=== PATIENT | female | born 1970 | race Caucasian/White ===

== ENCOUNTER → 2018-04-02 | Outpatient (REF) | payer BC | LOC: M LAB REF 17:48 | DX: E11.621 Type 2 diabetes mellitus with foot ulcer (principal) | CPT/HCPCS: 87077; 87186 ==

== ENCOUNTER 2018-06-02 17:06 | Emergency (ER) | payer BC ==
[2018-06-02 15:24] LABS: BASO % 0.3 % (0.0-1.0); EOS # 0.1 10^3/uL (0.0-0.50); EOS % 1.6 % (0.0-3.0); HEMOGLOBIN 15.2 g/dl (12.0-15.5); IMMATURE GRANULOCYTE % 0.3 % (0-3.0); LYMPH # 2.3 10^3/uL (1.5-4.5); LYMPH % 26.5 % (24.0-44.0); MEAN CORPUSCULAR HEMOGLOBIN 28.4 pg (27.0-33.0); MEAN CORPUSCULAR HGB CONC 33.8 g/dl (32.0-36.5); MEAN CORPUSCULAR VOLUME 84.1 fl (80.0-96.0); MONO # 0.5 10^3/uL (0.0-0.8); MONO % 5.7 % (0.0-5.0); NEUTROPHILS # 5.8 10^3/uL (1.8-7.7); NEUTROPHILS % 65.6 % (36.0-66.0); PLATELET COUNT, AUTOMATED 218 10^3/uL (150-450); RED BLOOD COUNT 5.35 10^6/uL (4.00-5.40); RED CELL DISTRIBUTION WIDTH 13.7 % (11.5-14.5); WHITE BLOOD COUNT 8.8 10^3/uL (4.0-10.0)
[2018-06-02] MEDS: CEFTAROLINE FOSAMIL 600 MG in D5W MINI-BAG PLUS 50 ML IV (15:29)
[2018-06-02] MEDS: NS 1,000 ML IV (15:29)
[2018-06-02 15:36] LABS: ALBUMIN 3.7 GM/DL (3.2-5.2); ALKALINE PHOSPHATASE 106 U/L (45-117); ALT/SGPT 24 U/L (12-78); ANION GAP 8 MEQ/L (8-16); AST/SGOT 8 U/L (7-37); BILIRUBIN,DIRECT < 0.1 MG/DL (0.0-0.2); BILIRUBIN,TOTAL 0.5 MG/DL (0.2-1.0); BLOOD UREA NITROGEN 12 MG/DL (7-18); CARBON DIOXIDE LEVEL 25 MEQ/L (21-32); CHLORIDE LEVEL 104 MEQ/L (98-107); CREATININE FOR GFR 0.86 MG/DL (0.55-1.30); GLOMERULAR FILTRATION RATE > 60.0 (>58); GLUCOSE, FASTING 300 MG/DL (70-100); POTASSIUM SERUM 4.1 MEQ/L (3.5-5.1); SODIUM LEVEL 137 MEQ/L (136-145); TOTAL PROTEIN 7.8 GM/DL (6.4-8.2)
[2018-06-02 15:38] LABS: LACTIC ACID SEPSIS PROTOCOL 2.5 MMOL/L (0.4-2.0)
[2018-06-02 15:44] LABS: ERYTHROCYTE SEDIMENTATION RATE 9 mm/hr (0-20)
[2018-06-02] MEDS: ACETAMINOPHEN 325 MG TAB PO (16:31)
== END 2018-06-02 17:12 | disposition home or self-care (01) ==
LOC: M ED 17:06
DX: L97.509 Non-pressure chronic ulcer of other part of unspecified foot with unspecified severity (principal); L03.115 Cellulitis of right lower limb; E11.9 Type 2 diabetes mellitus without complications; E78.5 Hyperlipidemia, unspecified; Z79.84 Long term (current) use of oral hypoglycemic drugs; Z79.899 Other long term (current) drug therapy
CPT/HCPCS: J0712

== ENCOUNTER → 2018-06-02 | Outpatient (REF) | payer BC | LOC: M LAB REF 09:34 | DX: E11.621 Type 2 diabetes mellitus with foot ulcer (principal) | CPT/HCPCS: 87186 ==

== ENCOUNTER 2018-11-27 11:43 | Inpatient (IN) | payer BC ==
[~2018-11-27] VITALS: Ht 160 cm; Wt 86.5 kg
[~2018-11-27 11:43] MED LIST: ATOR40TA75 PO; BACT800T5 PO; BASA100I SC; LISI-538 PO; METF10004 PO
[2018-11-27 12:33] LABS: BASO % 0.3 % (0.0-1.0); EOS # 0.1 10^3/uL (0.0-0.50); EOS % 1.2 % (0.0-3.0); HEMATOCRIT 44.2 % (36.0-47.0); HEMOGLOBIN 14.3 g/dl (12.0-15.5); LYMPH # 1.5 10^3/uL (1.5-4.5); LYMPH % 14.5 % (24.0-44.0); MEAN CORPUSCULAR HGB CONC 32.4 g/dl (32.0-36.5); MEAN CORPUSCULAR VOLUME 86.5 fl (80.0-96.0); MONO # 0.7 10^3/uL (0.0-0.8); MONO % 6.5 % (0.0-5.0); NEUTROPHILS # 7.7 10^3/uL (1.8-7.7); NEUTROPHILS % 77.2 % (36.0-66.0); PLATELET COUNT, AUTOMATED 388 10^3/uL (150-450); RED BLOOD COUNT 5.11 10^6/uL (4.00-5.40)
[2018-11-27 12:56] LABS: BLOOD UREA NITROGEN 7 MG/DL (7-18); C REACTIVE PROTEIN QUANTITATIV 8.56 MG/DL (0.00-0.30); CARBON DIOXIDE LEVEL 27 MEQ/L (21-32); CHLORIDE LEVEL 97 MEQ/L (98-107); CREATININE FOR GFR 0.82 MG/DL (0.55-1.30); GLOMERULAR FILTRATION RATE > 60.0 (>58); GLUCOSE, FASTING 353 MG/DL (70-100); POTASSIUM SERUM 4.5 MEQ/L (3.5-5.1); SODIUM LEVEL 130 MEQ/L (136-145)
[2018-11-27 13:00] LABS: ERYTHROCYTE SEDIMENTATION RATE 19 mm/hr (0-20)
[2018-11-27] MEDS ORDERED: AMPICILLIN SOD/SULBACTAM SOD 3 GM in D5W MINI-BAG PLUS 100 ML IV ONE (13:15)
--- NOTE | 2018-11-27 13:45 | REP ---
RIGHT FOOT SERIES: Four views of the right foot are performed and compared to a prior study of 04/02/2018. There is absence of the third metatarsal shaft and head with a small portion of the base of the third metatarsal again seen as on prior study. There is smooth periosteal reaction along the distal half of the second metatarsal with absence of the head of that metatarsal. Smooth erosive changes seen at the base of the second proximal phalanx. There is absence of the proximal half of the third proximal phalanx. There is absence of the fourth distal phalanx. Ulceration is seen in the plantar soft tissues at the level of the metatarsal phalangeal joints. Large calcaneal spurs are seen. I see no acute fracture and there is no definite radiographic signs of acute osteomyelitis with no osseous destruction or acute periosteal reaction. Electronically Signed by Peter Charles MD 11/27/2018 07:32 P
[2018-11-27] MEDS ORDERED: PERCOCET 5MG/325MG TAB PO PRN (15:30)
[2018-11-27] MEDS ORDERED: BISACODYL 5 MG TAB PO PRN (15:30)
[2018-11-27] MEDS ORDERED: MORPHINE 4 MG/ML 1ML VIAL/SYRINGE (J2270) IV PRN (15:30)
[2018-11-27] MEDS ORDERED: ONDANSETRON 4 MG TAB (S0181) PO PRN (15:30)
[2018-11-27] MEDS ORDERED: GLUCOSE 4 GM CHEW TABLET PO PRN (15:45)
[2018-11-27] MEDS ORDERED: DEXTROSE 50% 50 ML SYRINGE IV PRN (15:45)
[2018-11-27] MEDS ORDERED: GLUCAGON FOR INJ 1 MG VIAL (J1610) SC PRN (15:45)
[2018-11-27 17:00] VITALS: BP 137/74
[2018-11-27] MEDS: HumaLOG INSULIN (NovoLOG) PER UNIT SC SCH (17:09)
[2018-11-27] MEDS: NS 1,000 ML IV SCH (17:09)
[2018-11-27] MEDS: LISINOPRIL 20 MG TAB PO SCH (17:12)
--- NOTE | 2018-11-27 17:19 | HPEPDOC ---
[facility] Medical History & Physical Date of Admission Nov 27, 2018 History and Physical CHIEF COMPLAINT: [worsening right foot ulcer] HISTORY OF PRESENT ILLNESS: This is a 47 yo female with pmhx of DM2, HLD, and HTn who presented to the ED for worsening right foot ulcer and cellulitis . Patient said she has a plantar ulcer since May 2018, but she has not been following up with any doctor. SHe said 1-2 weeks ago she was having intermittent fevers , tmax of 103.4 and noticed a red rash on her right leg, but it eventually went away, but on Thursday of this week she noticed that her foot looks more red, swelling, some tenderness and pus drainage. She decided to monitor it and realized that it has been getting worse so she came in today. Patient said she has not followed up with her pmd because she lost her job and could no longer afford to go see her pmd or the copay. Per patient since she was away from home for about a week and she was not able to take her meds because she left them at her home. Since Thursday she has had intermittent chills, and low grade fever, but no nausea, vomiting , diarrhea, chest pain or sob. PAST MEDICAL HISTORY: DM2 with peripheral neuropathy HLD HTN PAST SURGICAL HISTORY: 1. [OM - removal right 3 rd toe joint ]. SOCIAL HISTORY: Resides in: [home ] Employment: [unemployed] Tobacco use:[no] ETOH: [no] Illicit drug use: [no ] Tattoos done unprofessionally: [no]. IV drug use: [no ] FAMILY HISTORY: Father: [DM2, thyroid problems, liver cirrhosis and liver ca] Mother: [DM2, thyroid problems] Siblings: [DM2] ALLERGIES: Please see below. HOME MEDICATIONS: Please see below. REVIEW OF SYSTEMS: All 14 points ROS is negative except what's stated in HPI PHYSICAL EXAMINATION: GEN: no acute distress HEENT : no lymphadenopathy, PERRLA , no oropharyngeal erythema or exudates CVS: Normal S1/s2, no murmurs, rubs or gallops, RESP: Lungs are clear to auscultation bilaterally, no crackles, wheezes or rhonchi Abd: soft, nontender, nondistended, + BS MSK: full ROM, 5/5 strength in all extremities , right foot swelling, erythema, ulcer with exudative drainage Integumentary: no rash or bruises Neuro: AOAx3, no focal deficit psych: normal mood, good judgement and cooperative LABORATORY DATA: See below. IMAGING: [R foot xray - unofficial read - no OM ] MICROBIOLOGY: Please see below. ASSESSMENT: right foot ulcer and cellutlitis uncontrolled DM2 htn hld PLAN: vanc and ampicillin f/u wound and blood cx f/u wound care and podiatry consult f/u vascular consult c/w home meds - except dm2 meds ISS levemir 10 untis at bedtime hypoglycemic protocol f./u hba1c dvt ppx full code , from home, no svc Vital Signs Vital Signs Date Time Temp Pulse Resp B/P (MAP) Pulse Ox O2 Delivery O2 Flow Rate FiO2 11/27/18 16:07 99.6 103 18 131/75 (93) 98 Room Air Laboratory Data Labs 24H Laboratory Tests 2 11/27/18 12:18: Immature Granulocyte % (Auto) 0.3, White Blood Count 10.0, Red Blood Count 5.11, Hemoglobin 14.3, Hematocrit 44.2, Mean Corpuscular Volume 86.5, Mean Corpuscular Hemoglobin 28.0, Mean Corpuscular Hemoglobin Concent 32.4, Red Cell Distribution Width 12.6, Platelet Count 388, Neutrophils (%) (Auto) 77.2H, Lymphocytes (%) (Auto) 14.5L, Monocytes (%) (Auto) 6.5H, Eosinophils (%) (Auto) 1.2, Basophils ( %) (Auto) 0.3, Neutrophils # (Auto) 7.7, Lymphocytes # (Auto) 1.5, Monocytes # (Auto) 0.7, Eosinophils # (Auto) 0.1, Basophils # (Auto) 0.0, Nucleated Red Blood Cells % (auto) 0.0, Erythrocyte Sedimentation Rate 19, Anion Gap 6L, Glomerular Filtration Rate > 60.0, Lactic Acid Level 1.7, Blood Urea Nitrogen 7, Creatinine 0.82, Sodium Level 130L, Potassium Level 4.5, Chloride Level 97L, Carbon Dioxide Level 27, Calcium Level 9.0, C-Reactive Protein, Quantitative 8.56H CBC/BMP Laboratory Tests 11/27/18 12:18 Red Blood Count 5.11, Mean Corpuscular Volume 86.5, Mean Corpuscular Hemoglobin 28.0, Mean Corpuscular Hemoglobin Concent 32.4, Red Cell Distribution Width 12.6, Neutrophils (%) (Auto) 77.2 H, Lymphocytes (%) (Auto) 14.5 L, Monocytes (%) (Auto) 6.5 H, Eosinophils (%) (Auto) 1.2, Basophils (%) (Auto) 0.3, Neutrophils # (Auto) 7.7, Lymphocytes # (Auto) 1.5, Monocytes # (Auto) 0.7, Eosinophils # (Auto) 0.1, Basophils # (Auto) 0.0, Calcium Level 9.0 Microbiology Microbiology 11/27/18 Blood Culture, Received Pending 11/27/18 Blood Culture, Received Pending 11/27/18 Gram Stain, Received Pending 11/27/18 Wound Culture, Received Pending Home Medications Scheduled (Morena Fung) 100 Unit/Ml Inj, 10 UNIT SC DAILY Atorvastatin Calcium (Atorvastatin Calcium) 40 Mg Tab, 40 MG PO QHS Lisinopril (Lisinopril) 20 Mg Tab, 20 MG PO DAILY Metformin Hydrochloride (Metformin HCl) 1,000 Mg Tab, 1,000 MG PO BID Allergies Coded Allergies: No Known Allergies (Unverified , 06/02/18) ALANA QURESHI MD Nov 27, 2018 17:19
[2018-11-27] MEDS: SILVER SULFADIAZINE 1% CR 50 GM JAR TOP SCH (17:39)
[2018-11-27] MEDS: AMPICILLIN SOD 1 GM in D5W 50 ML IV SCH ×2 (18:01→23:06)
[2018-11-27] MEDS: ACETAMINOPHEN TAB 650MG DOSE (2X325MG) PO PRN (20:35)
[2018-11-27] MEDS: ATORVASTATIN 20 MG TAB PO SCH (20:36)
[2018-11-27] MEDS: VANCOMYCIN HCL 1,000 MG, VIAL MATE ADAPTER 1 EACH in D5W 250 ML IV SCH (20:36)
[2018-11-27] MEDS: SENOKOT S TAB PO SCH (20:36)
[2018-11-27] MEDS: HEPARIN SOD (PORCINE) 5000 UNITS/ML VIAL SC SCH (21:38)
[2018-11-27 22:00] VITALS: BP 127/70
[2018-11-28] MEDS: VANCOMYCIN HCL 1,000 MG, VIAL MATE ADAPTER 1 EACH in D5W 250 ML IV SCH ×3 (03:47→20:07)
[2018-11-28] MEDS: HEPARIN SOD (PORCINE) 5000 UNITS/ML VIAL SC SCH ×3 (05:49→22:16)
[2018-11-28] MEDS: AMPICILLIN SOD 1 GM in D5W 50 ML IV SCH ×3 (05:50→17:52)
[2018-11-28 06:00] VITALS: BP 132/78
[2018-11-28 06:56] LABS: BASO % 0.4 % (0.0-1.0); EOS # 0.1 10^3/uL (0.0-0.50); EOS % 1.7 % (0.0-3.0); HEMATOCRIT 35.8 % (36.0-47.0); LYMPH # 1.4 10^3/uL (1.5-4.5); MEAN CORPUSCULAR HEMOGLOBIN 28.2 pg (27.0-33.0); MEAN CORPUSCULAR HGB CONC 32.7 g/dl (32.0-36.5); MEAN CORPUSCULAR VOLUME 86.3 fl (80.0-96.0); MONO # 0.7 10^3/uL (0.0-0.8); MONO % 9.1 % (0.0-5.0); NEUTROPHILS # 5.3 10^3/uL (1.8-7.7); NEUTROPHILS % 70.4 % (36.0-66.0); PLATELET COUNT, AUTOMATED 305 10^3/uL (150-450); RED BLOOD COUNT 4.15 10^6/uL (4.00-5.40); WHITE BLOOD COUNT 7.5 10^3/uL (4.0-10.0)
[2018-11-28 07:07] LABS: HEMOGLOBIN 11.7 g/dl (12.0-15.5)
[2018-11-28 07:13] LABS: BLOOD UREA NITROGEN 10 MG/DL (7-18); CALCIUM LEVEL 8.3 MG/DL (8.5-10.1); CARBON DIOXIDE LEVEL 26 MEQ/L (21-32); CHLORIDE LEVEL 99 MEQ/L (98-107); GLOMERULAR FILTRATION RATE > 60.0 (>58); GLUCOSE, FASTING 323 MG/DL (70-100); MAGNESIUM LEVEL 1.7 MG/DL (1.8-2.4); POTASSIUM SERUM 4.3 MEQ/L (3.5-5.1); SODIUM LEVEL 133 MEQ/L (136-145)
[2018-11-28] MEDS: SENOKOT S TAB PO SCH ×2 (08:49→20:08)
[2018-11-28] MEDS: HumaLOG INSULIN (NovoLOG) PER UNIT SC SCH ×3 (08:50→17:30)
[2018-11-28] MEDS: NS 1,000 ML IV SCH ×2 (08:50→20:36)
[2018-11-28] MEDS: LISINOPRIL 20 MG TAB PO SCH (08:53)
[2018-11-28] MEDS: SILVER SULFADIAZINE 1% CR 50 GM JAR TOP SCH (08:53)
[2018-11-28 14:00] VITALS: BP 137/74
--- NOTE | 2018-11-28 14:01 | IPN ---
DATE: 11/28/2018 PRIMARY CARE PROVIDER: Dr. Conrado Toledo Willa is seen on [facility] on the hospitalist service, admitted with diabetic foot ulcer of the right foot. She has seen Dr. Clifton from the wound center in the past. Does not have a pharmacy picking technician. Plain films on admission did not show any evidence of osteomyelitis. PHYSICAL EXAMINATION: Afebrile. 99.6 maximum temperature (t-max). 122/72. Alert, conversant, no distress. LUNGS: Clear. HEART: Regular rhythm. ABDOMEN: Soft, nontender. EXTREMITIES : Right foot is dressed. There is some bloody drainage on the dressing. LABORATORIES: White count 7.5, hemoglobin 11.7, platelets 305. Sodium 133, potassium 4.3, BUN 10, creatinine 0.7, glucose is in the 300s. Magnesium is 1.7. IMPRESSION: 1. Diabetic foot ulcer. She is on Ampicillin and vancomycin. She specifically requests Dr. Carroll as a pharmacy picking technician as other family members have seen him. 2. Diabetes. She is on sliding scale with insulin coverage. Diabetic control as an outpatient I suspect to be poor. We will see what her hemoglobin A1/c is at baseline. We add some basal insulin to the coverage. 3. Hypertensive heart disease. Continue her Lisinopril 20 mg daily. 4. Hyperlipidemia. Continue Lipitor 40 mg daily.
[2018-11-28] MEDS: ACETAMINOPHEN TAB 650MG DOSE (2X325MG) PO PRN (20:07)
[2018-11-28] MEDS: ATORVASTATIN 20 MG TAB PO SCH (20:08)
[2018-11-28] MEDS ORDERED: LEVEMIR (INSULIN DETEMIR) 1 UNITS/0.01ML SC SCH (21:00)
[2018-11-28 22:00] VITALS: BP 117/64
[2018-11-29] MEDS: AMPICILLIN SOD 1 GM in D5W 50 ML IV SCH ×4 (00:14→18:00)
[2018-11-29] MEDS: VANCOMYCIN HCL 1,000 MG, VIAL MATE ADAPTER 1 EACH in D5W 250 ML IV SCH ×3 (04:18→21:57)
[2018-11-29] MEDS: HEPARIN SOD (PORCINE) 5000 UNITS/ML VIAL SC SCH ×2 (06:13→08:01)
[2018-11-29] MEDS: NS 1,000 ML IV SCH (06:17)
[2018-11-29 06:22] VITALS: BP 135/69
[2018-11-29 06:32] LABS: BASO % 0.5 % (0.0-1.0); EOS # 0.1 10^3/uL (0.0-0.50); EOS % 2.3 % (0.0-3.0); HEMATOCRIT 35.7 % (36.0-47.0); HEMOGLOBIN 11.6 g/dl (12.0-15.5); LYMPH # 2.1 10^3/uL (1.5-4.5); MEAN CORPUSCULAR HEMOGLOBIN 28.1 pg (27.0-33.0); MEAN CORPUSCULAR HGB CONC 32.5 g/dl (32.0-36.5); MEAN CORPUSCULAR VOLUME 86.4 fl (80.0-96.0); MONO # 0.6 10^3/uL (0.0-0.8); MONO % 10.1 % (0.0-5.0); NEUTROPHILS # 3.2 10^3/uL (1.8-7.7); NEUTROPHILS % 52.6 % (36.0-66.0); PLATELET COUNT, AUTOMATED 310 10^3/uL (150-450); RED BLOOD COUNT 4.13 10^6/uL (4.00-5.40); WHITE BLOOD COUNT 6.1 10^3/uL (4.0-10.0)
[2018-11-29 06:55] LABS: BLOOD UREA NITROGEN 11 MG/DL (7-18); CALCIUM LEVEL 8.3 MG/DL (8.5-10.1); CARBON DIOXIDE LEVEL 25 MEQ/L (21-32); CHLORIDE LEVEL 102 MEQ/L (98-107); GLOMERULAR FILTRATION RATE > 60.0 (>58); GLUCOSE, FASTING 340 MG/DL (70-100); POTASSIUM SERUM 4.1 MEQ/L (3.5-5.1); SODIUM LEVEL 133 MEQ/L (136-145)
[2018-11-29] MEDS: HumaLOG INSULIN (NovoLOG) PER UNIT SC SCH ×4 (07:30→21:00)
[2018-11-29] MEDS: LISINOPRIL 20 MG TAB PO SCH (09:00)
[2018-11-29] MEDS: SILVER SULFADIAZINE 1% CR 50 GM JAR TOP SCH ×2 (09:00→14:00)
[2018-11-29] MEDS: SENOKOT S TAB PO SCH ×2 (09:00→21:58)
--- NOTE | 2018-11-29 10:30 | IPN ---
DATE OF SERVICE: 11/29/2018 Willa is seen on 4 ro[facility]. She was seen by Dr. Carroll yesterday. Note is pending, but per the patient, she is going to the operating room (OR) today for a podiatric procedure. PHYSICAL EXAMINATION: Afebrile. Vital signs stable. 143/86. Lungs clear. Heart: Regular rate and rhythm. Abdomen: Soft, nontender. Right foot is dressed. Right leg has a regression of erythema from the inked margins. The laboratories: White count 6.1, hemoglobin 11.6, electrolytes unremarkable. Blood sugar is in the 200-300 range. IMPRESSION: 1. Cellulitis in leg. On ampicillin and vancomycin. Podiatric surgical procedure planned today. 2. Type 2 diabetes. On insulin. Will increase her basal insulin. Continue sliding scale. 3. Hypertensive heart disease. Continue lisinopril 20 mg daily. 4. Hyperlipidemia. Continue Lipitor [address] Holly Orozco will be assuming her care tomorrow.
[2018-11-29 14:00] VITALS: BP 141/77
[2018-11-29] MEDS ORDERED: PROPOFOL 200 MG/20 ML VIAL As Ordered ONE (19:24)
[2018-11-29] MEDS ORDERED: GENTAMICIN SULF INJ 80MG/2ML VIAL (J1580) As Ordered ONE (19:34)
[2018-11-29] MEDS ORDERED: BUPIVACAINE HCL 0.5% 10 ML VIAL As Ordered ONE (19:34)
[2018-11-29] MEDS ORDERED: dexameTHASONE 4 MG/ML 1ML VIAL (J1100) As Ordered ONE (19:35)
[2018-11-29] MEDS ORDERED: LIDOCAINE 2% MDV 20 ML VIAL As Ordered ONE (19:35)
[2018-11-29] MEDS ORDERED: BACITRACIN PWD 50,000 UNITS VIAL As Ordered ONE (19:35)
[2018-11-29] MEDS ORDERED: NEOSPORIN GU IRRIG 20 ML VIAL As Ordered ONE (19:35)
[2018-11-29] MEDS ORDERED: fentaNYL 100 MCG/2 ML INJECTION (J3010) As Ordered ONE (19:37)
[2018-11-29] MEDS ORDERED: MIDAZOLAM INJ 2 MG/2 ML VIAL (J2250) As Ordered ONE (19:37)
[2018-11-29] MEDS ORDERED: LR 1,000 ML IV SCH (21:00)
[2018-11-29] MEDS ORDERED: ONDANSETRON 4MG/2ML VIAL (J2405) IV PRN (21:00)
[2018-11-29] MEDS ORDERED: PERCOCET 5MG/325MG TAB PO PRN (21:00)
--- NOTE | 2018-11-29 21:21 | RO ---
DATE OF PROCEDURE: PREOPERATIVE DIAGNOSIS: Dorsal and plantar abscess right foot. POSTOPERATIVE DIAGNOSIS: Dorsal and plantar abscess right foot. PROCEDURE: Incision and drainage of dorsal and plantar space infection right foot. SURGEON: Dr. Bentley Carroll DPM MATERIAL HANDLING SUPERVISOR: None. ANESTHESIA: Local MAC ESTIMATED BLOOD LOSS: 75 mL. HEMOSTASIS: None. DRAINS UTILIZED: Half inch iodoform gauze. IRRIGATION: Dilute gentamicin solution 3 liters and in a low pressure pulsed lavage system. DESCRIPTION OF OPERATION: On 11/29/2018 this 47-year-old white female was taken from her hospital room to the operating room and placed on the operating room table in a supine position. Following the induction of IV sedation, local regional anesthesia, the right lower extremity was prepped and draped in the usual aseptic manner. Attention was directed to the patient's right foot and there was noted to be a draining abscess between the 4th and 3rd toes of the right foot. This extended from plantar ulcer on the plantar surface of the foot. Utilizing a groove director the abscess extended from the plantar surface of the foot to the dorsal aspect. The skin margin was extended to connect the dorsum and plantar abscesses making one incision from the dorsal surface of the foot onto the plantar surface of the foot measuring approximately 15 cm. All bleeders encountered were electrocoagulated. The osseous structures were intact. There were no signs of osteomyelitis. Utilizing 3 liters with a low pressure gentamicin solution, the wound was pulsed lavaged. Half inch iodoform gauze was utilized to pack the wound and a sterile dressing was applied consisting of 4x4's ABD and coban. Patient having apparently tolerated the surgical procedure well was taken from the OR to the recovery room for further monitoring by the anesthesia department. TRACY
[2018-11-29] MEDS: LEVEMIR (INSULIN DETEMIR) 1 UNITS/0.01ML SC SCH (21:57)
[2018-11-29] MEDS: ATORVASTATIN 20 MG TAB PO SCH (21:58)
[2018-11-29 22:00] VITALS: BP 139/93
[2018-11-29 22:30] VITALS: BP 130/72
[2018-11-29 23:30] VITALS: BP 141/76
[2018-11-30 00:23] VITALS: BP 131/64
[2018-11-30] MEDS: AMPICILLIN SOD 1 GM in D5W 50 ML IV SCH ×4 (01:07→18:02)
[2018-11-30 01:30] VITALS: BP 130/67
[2018-11-30] MEDS: HEPARIN SOD (PORCINE) 5000 UNITS/ML VIAL SC SCH ×3 (04:54→20:30)
[2018-11-30] MEDS: VANCOMYCIN HCL 1,000 MG, VIAL MATE ADAPTER 1 EACH in D5W 250 ML IV SCH ×3 (04:55→20:37)
[2018-11-30 05:30] VITALS: BP 131/79
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
[2018-11-30 07:03] LABS: BASO % 0.6 % (0.0-1.0); EOS # 0.1 10^3/uL (0.0-0.50); HEMOGLOBIN 10.9 g/dl (12.0-15.5); LYMPH # 2.1 10^3/uL (1.5-4.5); LYMPH % 31.3 % (24.0-44.0); MEAN CORPUSCULAR HEMOGLOBIN 28.4 pg (27.0-33.0); MEAN CORPUSCULAR VOLUME 85.9 fl (80.0-96.0); MONO # 0.6 10^3/uL (0.0-0.8); MONO % 8.3 % (0.0-5.0); NEUTROPHILS # 3.8 10^3/uL (1.8-7.7); NEUTROPHILS % 57.2 % (36.0-66.0); PLATELET COUNT, AUTOMATED 319 10^3/uL (150-450); RED BLOOD COUNT 3.84 10^6/uL (4.00-5.40); WHITE BLOOD COUNT 6.6 10^3/uL (4.0-10.0)
[2018-11-30 07:29] LABS: BLOOD UREA NITROGEN 9 MG/DL (7-18); CALCIUM LEVEL 8.1 MG/DL (8.5-10.1); CARBON DIOXIDE LEVEL 25 MEQ/L (21-32); CHLORIDE LEVEL 103 MEQ/L (98-107); GLOMERULAR FILTRATION RATE > 60.0 (>58); GLUCOSE, FASTING 303 MG/DL (70-100); MAGNESIUM LEVEL 1.8 MG/DL (1.8-2.4); SODIUM LEVEL 134 MEQ/L (136-145)
[2018-11-30] MEDS: LISINOPRIL 20 MG TAB PO SCH (07:59)
[2018-11-30] MEDS: HumaLOG INSULIN (NovoLOG) PER UNIT SC SCH ×4 (07:59→20:49)
[2018-11-30] MEDS: SENOKOT S TAB PO SCH ×2 (07:59→20:38)
[2018-11-30] MEDS: ACETAMINOPHEN TAB 650MG DOSE (2X325MG) PO PRN ×2 (08:04→16:29)
[2018-11-30 10:07] VITALS: BP 135/76
[2018-11-30 15:00] VITALS: BP 146/85
[2018-11-30] MEDS: NS 1,000 ML IV SCH ×2 (15:30→15:37)
--- NOTE | 2018-11-30 16:08 | REP ---
Lower extremity arterial bowel were ultrasound Peak Systolic Phasicity Velocity TUBING TESTER 83.9 triphasic Profunda 70.6 biphasic SFA prox 88.2 triphasic SFA mid 147 triphasic SFA dist 149 triphasic Pop 95.4 triphasic JAY JAY prox 30.4 biphasic Tib/P tr 81.9 triphasic FREEZING MACHINE OPERATOR pr 81.0 monophasic FREEZING MACHINE OPERATOR dst 117 monophasic JAY JAY dst 51.7 monophasic The because of bandages the distal JAY JAY could not be evaluated. There is mild to moderate plaque throughout the the arterial system. Monophasic wave forms are identified in the proximal and distal FREEZING MACHINE OPERATOR and the proximal JAY JAY. The distal JAY JAY could not be imaged because of bandages. Increased flow is identified in the distal FREEZING MACHINE OPERATOR questionably secondary to cellulitis. No significant occlusions or stenosis are identified. Electronically Signed by Peter Barnett MD 11/30/2018 03:59 P
[2018-11-30 20:00] VITALS: BP 160/82
[2018-11-30] MEDS: ATORVASTATIN 20 MG TAB PO SCH (20:48)
[2018-11-30] MEDS: LEVEMIR (INSULIN DETEMIR) 1 UNITS/0.01ML SC SCH (20:49)
[2018-12-01] MEDS: AMPICILLIN SOD 1 GM in D5W 50 ML IV SCH ×3 (00:20→12:22)
[2018-12-01] MEDS: ACETAMINOPHEN TAB 650MG DOSE (2X325MG) PO PRN ×2 (00:23→21:42)
--- NOTE | 2018-12-01 00:26 | IPNPDOC ---
Text Note Date of Service The patient was seen on 11/30/18. NOTE SUBJECTIVE: Does not offer any complaints today. NO fever or chills, No nausea or vomiting or diarrhea. PHYSICAL EXAMINATION: Vitals : as below GENERAL: awake alert oriented x 3, no no acute distress HEENT: Normocephalic, atraumatic, moist mucus membranes, an icteric eyes. Lungs: clear to auscultation , no ronchi or chrackles Heart: Regular rate and rhythm. No rub , murmur of gallop Abdomen: Soft, nontender. normal bowel sounds Right foot is dressed. Right leg has a regression of erythema from the inked margins. Labs and radiology : reviewed. Assessment and Plan: This is a 47 yo female with pmhx of DM2, HLD, and HTn who presented to the ED for worsening right foot ulcer and cellulitis . Patient said she has a plantar ulcer since May 2018 followed with fanta Pizano with no healing. She said 1-2 weeks ago she was having intermittent fevers , tmax of 103.4 and noticed a red rash on her right leg, but it eventually went away, then this week she noticed that her foot looks more red, swelling, some tenderness and pus drainage. She decided to monitor it and realized that it has been getting worse so she came in today. Patient said she has not followed up with her pmd because she lost her job and could no longer afford to go see her pmd or the copay. Per patient since she was away from home for about a week and she was not able to take her meds because she left them at her home. Since Thursday she has had intermittent chills, and low grade fever, but no nausea, vomiting , diarrhea, chest pain or sob. Cellulitis and abscess of foot diabetic foot ulcer s/p I/D on 11/29 On ampicillin and vancomycin. Type 2 diabetes. On levemir and lispro Hypertensive heart disease. Continue lisinopril 20 mg daily. Hyperlipidemia. Continue Lipitor 40 mg daily. DVT prophylaxis in place. VS,Fishbone, I+O VS, Fishbone, I+O Laboratory Tests 11/30/18 06:34 Red Blood Count 3.84 L, Mean Corpuscular Volume 85.9, Mean Corpuscular Hemoglobin 28.4, Mean Corpuscular Hemoglobin Concent 33.0, Red Cell Distribution Width 12.8, Neutrophils (%) (Auto) 57.2, Lymphocytes (%) (Auto) 31.3, Monocytes (%) (Auto) 8.3 H, Eosinophils (%) (Auto) 2.0, Basophils (%) (Auto) 0.6, Neutrophils # (Auto) 3.8, Lymphocytes # (Auto) 2.1, Monocytes # (Auto) 0.6, Eosinophils # (Auto) 0.1, Basophils # (Auto) 0.0, Calcium Level 8.1 L Vital Signs Date Time Temp Pulse Resp B/P (MAP) Pulse Ox O2 Delivery O2 Flow Rate FiO2 11/30/18 20:00 97.5 90 18 160/82 (108) 98 11/29/18 21:00 Room Air I&O- Last 24 Hours up to 6 AM 12/01/18 06:00 Intake Total 720 ml Output Total 1000 ml Balance -280 ml TERESITA MÁRQUEZ MD Dec 01, 2018 00:26
[2018-12-01] MEDS: HEPARIN SOD (PORCINE) 5000 UNITS/ML VIAL SC SCH ×3 (03:40→21:41)
[2018-12-01] MEDS: VANCOMYCIN HCL 1,000 MG, VIAL MATE ADAPTER 1 EACH in D5W 250 ML IV SCH (03:50)
[2018-12-01] MEDS: NS 1,000 ML IV SCH (05:48)
[2018-12-01 06:03] VITALS: BP 132/67
[2018-12-01 07:34] LABS: BASO # 0.1 10^3/uL (0.0-0.2); BASO % 0.8 % (0.0-1.0); EOS # 0.2 10^3/uL (0.0-0.50); EOS % 2.6 % (0.0-3.0); HEMATOCRIT 36.4 % (36.0-47.0); LYMPH # 2.6 10^3/uL (1.5-4.5); LYMPH % 41.7 % (24.0-44.0); MEAN CORPUSCULAR HEMOGLOBIN 28.4 pg (27.0-33.0); MEAN CORPUSCULAR VOLUME 86.3 fl (80.0-96.0); MONO # 0.5 10^3/uL (0.0-0.8); MONO % 7.5 % (0.0-5.0); NEUTROPHILS # 2.9 10^3/uL (1.8-7.7); NEUTROPHILS % 46.3 % (36.0-66.0); PLATELET COUNT, AUTOMATED 326 10^3/uL (150-450); RED BLOOD COUNT 4.22 10^6/uL (4.00-5.40); WHITE BLOOD COUNT 6.2 10^3/uL (4.0-10.0)
[2018-12-01 07:56] LABS: BLOOD UREA NITROGEN 9 MG/DL (7-18); CALCIUM LEVEL 8.4 MG/DL (8.5-10.1); CARBON DIOXIDE LEVEL 25 MEQ/L (21-32); CHLORIDE LEVEL 102 MEQ/L (98-107); CREATININE FOR GFR 0.71 MG/DL (0.55-1.30); GLOMERULAR FILTRATION RATE > 60.0 (>58); GLUCOSE, FASTING 280 MG/DL (70-100); MAGNESIUM LEVEL 2.1 MG/DL (1.8-2.4); POTASSIUM SERUM 4.3 MEQ/L (3.5-5.1); SODIUM LEVEL 136 MEQ/L (136-145)
[2018-12-01] MEDS: SENOKOT S TAB PO SCH ×2 (08:55→21:42)
[2018-12-01] MEDS: HumaLOG INSULIN (NovoLOG) PER UNIT SC SCH ×4 (08:55→21:42)
[2018-12-01] MEDS: LISINOPRIL 20 MG TAB PO SCH (08:55)
[2018-12-01] MEDS: LEVEMIR (INSULIN DETEMIR) 1 UNITS/0.01ML SC SCH ×2 (09:52→21:42)
[2018-12-01 14:00] VITALS: BP 136/86
[2018-12-01] MEDS: AMPICILLIN SOD/SULBACTAM SOD 1.5 GM in D5W MINI-BAG PLUS 50 ML IV SCH (18:36)
[2018-12-01 20:00] VITALS: BP_SYST 145; BP_SYST 168; BP_DIAS 64; BP_DIAS 90
--- NOTE | 2018-12-01 21:26 | IPNPDOC ---
Text Note Date of Service The patient was seen on 12/01/18. NOTE SUBJECTIVE: Does not offer any complaints today. NO fever or chills, No nausea or vomiting or diarrhea. PHYSICAL EXAMINATION: Vitals : as below GENERAL: awake alert oriented x 3, no no acute distress HEENT: Normocephalic, atraumatic, moist mucus membranes, an icteric eyes. Lungs: clear to auscultation , no ronchi or chrackles Heart: Regular rate and rhythm. No rub , murmur of gallop Abdomen: Soft, nontender. normal bowel sounds Right foot is dressed. Right leg has a regression of erythema from the inked margins. Labs and radiology : reviewed. Assessment and Plan: This is a 47 yo female with pmhx of DM2, HLD, and HTn who presented to the ED for worsening right foot ulcer and cellulitis . Patient said she has a plantar ulcer since May 2018 followed with fanta Pizano with no healing. She said 1-2 weeks ago she was having intermittent fevers , tmax of 103.4 and noticed a red rash on her right leg, but it eventually went away, then this week she noticed that her foot looks more red, swelling, some tenderness and pus drainage. She decided to monitor it and realized that it has been getting worse so she came in today. Patient said she has not followed up with her pmd because she lost her job and could no longer afford to go see her pmd or the copay. Per patient since she was away from home for about a week and she was not able to take her meds because she left them at her home. Since Thursday she has had intermittent chills, and low grade fever, but no nausea, vomiting , diarrhea, chest pain or sob. Cellulitis and abscess of foot diabetic foot ulcer s/p I/D on 11/29 for secondary closure in 2 to 3 days changed to Unasyn Type 2 diabetes. On levemir and lispro Hypertensive heart disease. Continue lisinopril 20 mg daily. Hyperlipidemia. Continue Lipitor 40 mg daily. DVT prophylaxis in place. VS,Fishbone, I+O VS, Fishbone, I+O Laboratory Tests 12/01/18 07:09 Red Blood Count 4.22, Mean Corpuscular Volume 86.3, Mean Corpuscular Hemoglobin 28.4, Mean Corpuscular Hemoglobin Concent 33.0, Red Cell Distribution Width 12.7, Neutrophils (%) (Auto) 46.3, Lymphocytes (%) (Auto) 41.7, Monocytes (%) (Auto) 7.5 H, Eosinophils (%) (Auto) 2.6, Basophils (%) (Auto) 0.8, Neutrophils # (Auto) 2.9, Lymphocytes # (Auto) 2.6, Monocytes # (Auto) 0.5, Eosinophils # (Auto) 0.2, Basophils # (Auto) 0.1, Calcium Level 8.4 L Vital Signs Date Time Temp Pulse Resp B/P (MAP) Pulse Ox O2 Delivery O2 Flow Rate FiO2 12/01/18 14:00 97.4 88 18 136/86 (103) 96 12/01/18 06:03 94.0 11/29/18 21:00 Room Air I&O- Last 24 Hours up to 6 AM 12/01/18 06:00 Intake Total 1380 ml Output Total 1400 ml Balance -20 ml TERESITA MÁRQUEZ MD Dec 01, 2018 21:26
[2018-12-01] MEDS: ATORVASTATIN 20 MG TAB PO SCH (21:41)
[2018-12-02] MEDS: AMPICILLIN SOD/SULBACTAM SOD 1.5 GM in D5W MINI-BAG PLUS 50 ML IV SCH ×5 (00:32→23:43)
[2018-12-02] MEDS: HEPARIN SOD (PORCINE) 5000 UNITS/ML VIAL SC SCH ×3 (05:20→19:43)
[2018-12-02 06:56] LABS: BASO # 0.1 10^3/uL (0.0-0.2); BASO % 0.6 % (0.0-1.0); EOS # 0.2 10^3/uL (0.0-0.50); EOS % 2.3 % (0.0-3.0); HEMATOCRIT 35.8 % (36.0-47.0); HEMOGLOBIN 11.8 g/dl (12.0-15.5); LYMPH # 2.7 10^3/uL (1.5-4.5); LYMPH % 33.8 % (24.0-44.0); MEAN CORPUSCULAR HEMOGLOBIN 28.7 pg (27.0-33.0); MEAN CORPUSCULAR VOLUME 87.1 fl (80.0-96.0); MONO # 0.6 10^3/uL (0.0-0.8); MONO % 7.6 % (0.0-5.0); NEUTROPHILS # 4.3 10^3/uL (1.8-7.7); NEUTROPHILS % 54.7 % (36.0-66.0); PLATELET COUNT, AUTOMATED 293 10^3/uL (150-450); RED BLOOD COUNT 4.11 10^6/uL (4.00-5.40); WHITE BLOOD COUNT 7.9 10^3/uL (4.0-10.0)
[2018-12-02 07:24] LABS: BLOOD UREA NITROGEN 17 MG/DL (7-18); C REACTIVE PROTEIN QUANTITATIV 1.18 MG/DL (0.00-0.30); CALCIUM LEVEL 8.5 MG/DL (8.5-10.1); CARBON DIOXIDE LEVEL 25 MEQ/L (21-32); CHLORIDE LEVEL 103 MEQ/L (98-107); CREATININE FOR GFR 0.77 MG/DL (0.55-1.30); GLOMERULAR FILTRATION RATE > 60.0 (>58); GLUCOSE, FASTING 265 MG/DL (70-100); MAGNESIUM LEVEL 1.9 MG/DL (1.8-2.4); SODIUM LEVEL 136 MEQ/L (136-145)
[2018-12-02] MEDS: SENOKOT S TAB PO SCH ×2 (09:00→21:00)
[2018-12-02] MEDS: HumaLOG INSULIN (NovoLOG) PER UNIT SC SCH ×4 (09:22→19:43)
[2018-12-02] MEDS: LEVEMIR (INSULIN DETEMIR) 1 UNITS/0.01ML SC SCH ×2 (09:22→19:44)
[2018-12-02] MEDS: LISINOPRIL 20 MG TAB PO SCH (09:23)
--- NOTE | 2018-12-02 13:42 | IPNPDOC ---
Text Note Date of Service The patient was seen on 12/02/18. NOTE SUBJECTIVE: Does not offer any complaints today. NO fever or chills, No nausea or vomiting or diarrhea. PHYSICAL EXAMINATION: Vitals : as below GENERAL: awake alert oriented x 3, no no acute distress HEENT: Normocephalic, atraumatic, moist mucus membranes, an icteric eyes. Lungs: clear to auscultation , no ronchi or chrackles Heart: Regular rate and rhythm. No rub , murmur of gallop Abdomen: Soft, nontender. normal bowel sounds Right foot is dressed. Right leg has a regression of erythema from the inked margins. Labs and radiology : reviewed. Assessment and Plan: This is a 47 yo female with pmhx of DM2, HLD, and HTn who presented to the ED for worsening right foot ulcer and cellulitis . Patient said she has a plantar ulcer since May 2018 followed with fanta Pizano with no healing. She said 1-2 weeks ago she was having intermittent fevers , tmax of 103.4 and noticed a red rash on her right leg, but it eventually went away, then this week she noticed that her foot looks more red, swelling, some tenderness and pus drainage. She decided to monitor it and realized that it has been getting worse so she came in today. Patient said she has not followed up with her pmd because she lost her job and could no longer afford to go see her pmd or the copay. Per patient since she was away from home for about a week and she was not able to take her meds because she left them at her home. Since Thursday she has had intermittent chills, and low grade fever, but no nausea, vomiting , diarrhea, chest pain or sob. Cellulitis and abscess of foot diabetic foot ulcer s/p I/D on 11/29 for secondary closure in 2 to 3 days changed to Unasyn Type 2 diabetes. On levemir and lispro Hypertensive heart disease. Continue lisinopril 20 mg daily. Hyperlipidemia. Continue Lipitor 40 mg daily. DVT prophylaxis in place. VS,Fishbone, I+O VS, Fishbone, I+O Laboratory Tests 12/02/18 06:41 Red Blood Count 4.11, Mean Corpuscular Volume 87.1, Mean Corpuscular Hemoglobin 28.7, Mean Corpuscular Hemoglobin Concent 33.0, Red Cell Distribution Width 12.9, Neutrophils (%) (Auto) 54.7, Lymphocytes (%) (Auto) 33.8, Monocytes (%) (Auto) 7.6 H, Eosinophils (%) (Auto) 2.3, Basophils (%) (Auto) 0.6, Neutrophils # (Auto) 4.3, Lymphocytes # (Auto) 2.7, Monocytes # (Auto) 0.6, Eosinophils # (Auto) 0.2, Basophils # (Auto) 0.1, Calcium Level 8.5 Vital Signs Date Time Temp Pulse Resp B/P (MAP) Pulse Ox O2 Delivery O2 Flow Rate FiO2 12/02/18 09:23 130/72 12/01/18 20:00 97.0 168 12/01/18 20:00 18 95 12/01/18 06:03 94.0 11/29/18 21:00 Room Air I&O- Last 24 Hours up to 6 AM 12/02/18 06:00 Intake Total 1380 ml Output Total 2000 ml Balance -620 ml TERESITA MÁRQUEZ MD Dec 02, 2018 13:42
[2018-12-02 14:00] VITALS: BP 146/84
[2018-12-02] MEDS: ACETAMINOPHEN TAB 650MG DOSE (2X325MG) PO PRN ×2 (14:01→19:45)
[2018-12-02] MEDS: ATORVASTATIN 20 MG TAB PO SCH (19:44)
[2018-12-02 22:00] VITALS: BP 166/87
[2018-12-03] MEDS: HEPARIN SOD (PORCINE) 5000 UNITS/ML VIAL SC SCH ×3 (03:12→18:53)
[2018-12-03 06:00] VITALS: BP 121/65
[2018-12-03] MEDS: AMPICILLIN SOD/SULBACTAM SOD 1.5 GM in D5W MINI-BAG PLUS 50 ML IV SCH (06:36)
[2018-12-03] MEDS: VANCOMYCIN HCL 1,000 MG, VIAL MATE ADAPTER 1 EACH in D5W 250 ML IV SCH ×2 (09:11→18:53)
[2018-12-03] MEDS: SENOKOT S TAB PO SCH ×2 (09:12→20:26)
[2018-12-03] MEDS: HumaLOG INSULIN (NovoLOG) PER UNIT SC SCH ×4 (09:12→20:35)
[2018-12-03] MEDS: LISINOPRIL 20 MG TAB PO SCH (09:12)
[2018-12-03] MEDS: LEVEMIR (INSULIN DETEMIR) 1 UNITS/0.01ML SC SCH ×2 (09:13→20:35)
[2018-12-03] MEDS ORDERED: PROPOFOL 200 MG/20 ML VIAL As Ordered ONE (10:22)
[2018-12-03] MEDS ORDERED: ONDANSETRON 4MG/2ML VIAL (J2405) As Ordered ONE (10:22)
[2018-12-03] MEDS ORDERED: fentaNYL 100 MCG/2 ML INJECTION (J3010) As Ordered ONE (10:26)
[2018-12-03] MEDS ORDERED: MIDAZOLAM INJ 2 MG/2 ML VIAL (J2250) As Ordered ONE (10:26)
[2018-12-03] MEDS ORDERED: BUPIVACAINE HCL 0.5% 30 ML VIAL As Ordered ONE (12:40)
[2018-12-03] MEDS ORDERED: LIDOCAINE 2% MDV 20 ML VIAL As Ordered ONE (12:40)
[2018-12-03] MEDS ORDERED: UNASYN 1.5 GM VIAL As Ordered ONE (12:40)
[2018-12-03] MEDS ORDERED: VANCOMYCIN HCL 500 MG/10 ML VIAL (J3370) As Ordered ONE (12:40)
[2018-12-03] MEDS ORDERED: LR 1,000 ML IV SCH (13:15)
[2018-12-03] MEDS ORDERED: HumaLOG INSULIN (NovoLOG) PER UNIT SC ONE (13:15)
[2018-12-03] MEDS ORDERED: PERCOCET 5MG/325MG TAB PO PRN (13:15)
[2018-12-03] MEDS ORDERED: ONDANSETRON 4MG/2ML VIAL (J2405) IV PRN (13:15)
[2018-12-03 14:15] VITALS: BP 149/72
[2018-12-03 15:30] VITALS: BP 152/76
[2018-12-03 18:00] VITALS: BP 119/78
[2018-12-03 20:20] VITALS: BP 132/70
[2018-12-03] MEDS: ATORVASTATIN 20 MG TAB PO SCH (20:26)
[2018-12-03] MEDS: ACETAMINOPHEN TAB 650MG DOSE (2X325MG) PO PRN (20:27)
--- NOTE | 2018-12-03 21:51 | IPNPDOC ---
Text Note Date of Service The patient was seen on 12/03/18. NOTE SUBJECTIVE: Does not offer any complaints today. No fever or chills, No nausea or vomiting or diarrhea. Going to OR for secondary closure of the wound. PHYSICAL EXAMINATION: Vitals : as below GENERAL: awake alert oriented x 3, no no acute distress HEENT: Normocephalic, atraumatic, moist mucus membranes, an icteric eyes. Lungs: clear to auscultation , no ronchi or chrackles Heart: Regular rate and rhythm. No rub , murmur of gallop Abdomen: Soft, nontender. normal bowel sounds Right foot is dressed. Right leg has a regression of erythema from the inked margins. Labs and radiology : reviewed. Assessment and Plan: This is a 47 yo female with pmhx of DM2, HLD, and HTn who presented to the ED for worsening right foot ulcer and cellulitis . Patient said she has a plantar ulcer since May 2018 followed with fanta Pizano with no healing. She said 1-2 weeks ago she was having intermittent fevers , tmax of 103.4 and noticed a red rash on her right leg, but it eventually went away, then this week she noticed that her foot looks more red, swelling, some tenderness and pus drainage. She decided to monitor it and realized that it has been getting worse so she came in today. Patient said she has not followed up with her pmd because she lost her job and could no longer afford to go see her pmd or the copay. Per patient since she was away from home for about a week and she was not able to take her meds because she left them at her home. Since Thursday she has had intermittent chills, and low grade fever, but no nausea, vomiting , diarrhea, chest pain or sob. Cellulitis and abscess of foot diabetic foot ulcer s/p I/D on 11/29 for secondary closure in 2 to 3 days Culture from OR growing a few MRSA Anaerobic culture is negative. On Unasyn, add vancomycin. Type 2 diabetes. On levemir and lispro Hypertensive heart disease. Continue lisinopril 20 mg daily. Hyperlipidemia. Continue Lipitor 40 mg daily. DVT prophylaxis in place. VS,Fishbone, I+O VS, Fishbone, I+O Vital Signs Date Time Temp Pulse Resp B/P (MAP) Pulse Ox O2 Delivery O2 Flow Rate FiO2 2/15/19 18:00 98.1 104 20 119/78 (92) 96 12/03/18 13:25 Room Air 12/03/18 12:55 2 I&O- Last 24 Hours up to 6 AM 12/03/18 06:00 Intake Total 1300 ml Output Total 2050 ml Balance -750 ml TERESITA MÁRQUEZ MD Dec 03, 2018 21:51
[2018-12-04 00:30] VITALS: BP 96/54
[2018-12-04] MEDS: VANCOMYCIN HCL 1,000 MG, VIAL MATE ADAPTER 1 EACH in D5W 250 ML IV SCH ×2 (00:42→08:34)
[2018-12-04 06:37] VITALS: BP 137/76
[2018-12-04] MEDS: HEPARIN SOD (PORCINE) 5000 UNITS/ML VIAL SC SCH ×3 (06:39→20:39)
[2018-12-04] MEDS: HumaLOG INSULIN (NovoLOG) PER UNIT SC SCH ×4 (08:30→20:39)
[2018-12-04] MEDS: SENOKOT S TAB PO SCH ×2 (08:31→20:40)
[2018-12-04] MEDS: LISINOPRIL 20 MG TAB PO SCH (08:33)
[2018-12-04] MEDS: LEVEMIR (INSULIN DETEMIR) 1 UNITS/0.01ML SC SCH ×2 (08:41→20:40)
[2018-12-04 10:46] LABS: BASO # 0.1 10^3/uL (0.0-0.2); BASO % 0.6 % (0.0-1.0); EOS # 0.2 10^3/uL (0.0-0.50); EOS % 2.4 % (0.0-3.0); HEMATOCRIT 38.4 % (36.0-47.0); HEMOGLOBIN 12.3 g/dl (12.0-15.5); LYMPH # 2.8 10^3/uL (1.5-4.5); LYMPH % 32.2 % (24.0-44.0); MEAN CORPUSCULAR HEMOGLOBIN 28.1 pg (27.0-33.0); MEAN CORPUSCULAR VOLUME 87.9 fl (80.0-96.0); MONO # 0.4 10^3/uL (0.0-0.8); MONO % 4.5 % (0.0-5.0); NEUTROPHILS % 58.4 % (36.0-66.0); PLATELET COUNT, AUTOMATED 287 10^3/uL (150-450); RED BLOOD COUNT 4.37 10^6/uL (4.00-5.40); WHITE BLOOD COUNT 8.6 10^3/uL (4.0-10.0)
[2018-12-04 11:06] LABS: BLOOD UREA NITROGEN 15 MG/DL (7-18); CALCIUM LEVEL 8.6 MG/DL (8.5-10.1); CARBON DIOXIDE LEVEL 27 MEQ/L (21-32); CHLORIDE LEVEL 100 MEQ/L (98-107); CREATININE FOR GFR 0.76 MG/DL (0.55-1.30); GLOMERULAR FILTRATION RATE > 60.0 (>58); GLUCOSE, FASTING 330 MG/DL (70-100); POTASSIUM SERUM 4.4 MEQ/L (3.5-5.1); SODIUM LEVEL 134 MEQ/L (136-145)
[2018-12-04] MEDS: ACETAMINOPHEN TAB 650MG DOSE (2X325MG) PO PRN ×2 (11:21→19:06)
[2018-12-04 14:00] VITALS: BP 137/90
[2018-12-04] MEDS: VANCOMYCIN HCL 750 MG, VIAL MATE ADAPTER 1 EACH in D5W 250 ML IV SCH (17:30)
[2018-12-04] MEDS: VANCOMYCIN HCL 500 MG in D5W MINI-BAG PLUS 100 ML IV SCH (19:00)
[2018-12-04] MEDS: ATORVASTATIN 20 MG TAB PO SCH (20:40)
[2018-12-04 22:00] VITALS: BP 123/78
--- NOTE | 2018-12-04 23:30 | IPNPDOC ---
Text Note Date of Service The patient was seen on 12/04/18. NOTE SUBJECTIVE: Does not offer any complaints today. No fever or chills, No nausea or vomiting or diarrhea. Had secondary closure of right foot wound with vancomycin beads. Sugars have been running high . increased levemir insulin. PHYSICAL EXAMINATION: Vitals : as below GENERAL: awake alert oriented x 3, no no acute distress HEENT: Normocephalic, atraumatic, moist mucus membranes, an icteric eyes. Lungs: clear to auscultation , no ronchi or chrackles Heart: Regular rate and rhythm. No rub , murmur of gallop Abdomen: Soft, nontender. normal bowel sounds Right foot is dressed. Right leg has a regression of erythema from the inked margins. Labs and radiology : reviewed. Assessment and Plan: This is a 47 yo female with pmhx of DM2, HLD, and HTn who presented to the ED for worsening right foot ulcer and cellulitis . Patient said she has a plantar ulcer since May 2018 followed with fanta Pizano with no healing. She said 1-2 weeks ago she was having intermittent fevers , tmax of 103.4 and noticed a red rash on her right leg, but it eventually went away, then this week she noticed that her foot looks more red, swelling, some tenderness and pus drainage. She decided to monitor it and realized that it has been getting worse so she came in today. Patient said she has not followed up with her pmd because she lost her job and could no longer afford to go see her pmd or the copay. Per patient since she was away from home for about a week and she was not able to take her meds because she left them at her home. Since Thursday she has had intermittent chills, and low grade fever, but no nausea, vomiting , diarrhea, chest pain or sob. Cellulitis and abscess of right foot diabetic foot ulcer s/p I/D on 11/29 with secondary closure on 12/03 with vancomycin beads. Culture from OR growing a few MRSA Anaerobic culture is negative. On Unasyn,vancomycin. Type 2 diabetes. On levemir and lispro Hypertensive heart disease. Continue lisinopril 20 mg daily. Hyperlipidemia. Continue Lipitor 40 mg daily. DVT prophylaxis in place. VS,Fishbone, I+O VS, Fishbone, I+O Laboratory Tests 12/04/18 10:00 Red Blood Count 4.37, Mean Corpuscular Volume 87.9, Mean Corpuscular Hemoglobin 28.1, Mean Corpuscular Hemoglobin Concent 32.0, Red Cell Distribution Width 13.2, Neutrophils (%) (Auto) 58.4, Lymphocytes (%) (Auto) 32.2, Monocytes (%) (Auto) 4.5, Eosinophils (%) (Auto) 2.4, Basophils (%) (Auto) 0.6, Neutrophils # (Auto) 5.0, Lymphocytes # (Auto) 2.8, Monocytes # (Auto) 0.4, Eosinophils # (A uto) 0.2, Basophils # (Auto) 0.1, Calcium Level 8.6 Vital Signs Date Time Temp Pulse Resp B/P (MAP) Pulse Ox O2 Delivery O2 Flow Rate FiO2 12/04/18 22:00 97.6 86 16 123/78 (93) 99 12/03/18 13:25 Room Air 12/03/18 12:55 2 I&O- Last 24 Hours up to 6 AM 12/04/18 06:00 Intake Total 870 ml Output Total 1400 ml Balance -530 ml TERESITA MÁRQUEZ MD Dec 04, 2018 23:29
[2018-12-05] MEDS: VANCOMYCIN HCL 750 MG, VIAL MATE ADAPTER 1 EACH in D5W 250 ML IV SCH ×3 (02:01→18:12)
[2018-12-05] MEDS: VANCOMYCIN HCL 500 MG in D5W MINI-BAG PLUS 100 ML IV SCH ×4 (03:24→19:54)
[2018-12-05 05:01] VITALS: BP 127/67
[2018-12-05] MEDS: HEPARIN SOD (PORCINE) 5000 UNITS/ML VIAL SC SCH ×3 (06:22→21:17)
[2018-12-05 07:46] LABS: BASO # 0.1 10^3/uL (0.0-0.2); BASO % 0.6 % (0.0-1.0); EOS # 0.2 10^3/uL (0.0-0.50); EOS % 2.7 % (0.0-3.0); HEMATOCRIT 37.4 % (36.0-47.0); HEMOGLOBIN 12.2 g/dl (12.0-15.5); LYMPH # 2.9 10^3/uL (1.5-4.5); LYMPH % 34.4 % (24.0-44.0); MEAN CORPUSCULAR HEMOGLOBIN 28.4 pg (27.0-33.0); MEAN CORPUSCULAR HGB CONC 32.6 g/dl (32.0-36.5); MONO # 0.5 10^3/uL (0.0-0.8); MONO % 5.8 % (0.0-5.0); NEUTROPHILS # 4.7 10^3/uL (1.8-7.7); NEUTROPHILS % 54.7 % (36.0-66.0); PLATELET COUNT, AUTOMATED 254 10^3/uL (150-450); WHITE BLOOD COUNT 8.5 10^3/uL (4.0-10.0)
[2018-12-05 08:00] VITALS: BP 113/76
[2018-12-05 08:16] LABS: BLOOD UREA NITROGEN 15 MG/DL (7-18); CALCIUM LEVEL 8.3 MG/DL (8.5-10.1); CARBON DIOXIDE LEVEL 26 MEQ/L (21-32); CHLORIDE LEVEL 102 MEQ/L (98-107); CREATININE FOR GFR 0.76 MG/DL (0.55-1.30); GLOMERULAR FILTRATION RATE > 60.0 (>58); GLUCOSE, FASTING 353 MG/DL (70-100); POTASSIUM SERUM 4.5 MEQ/L (3.5-5.1); SODIUM LEVEL 133 MEQ/L (136-145)
[2018-12-05] MEDS: LEVEMIR (INSULIN DETEMIR) 1 UNITS/0.01ML SC SCH ×2 (08:32→19:53)
[2018-12-05] MEDS: HumaLOG INSULIN (NovoLOG) PER UNIT SC SCH ×4 (08:32→21:17)
[2018-12-05] MEDS: SENOKOT S TAB PO SCH ×2 (08:33→19:54)
[2018-12-05] MEDS: LISINOPRIL 20 MG TAB PO SCH (08:33)
[2018-12-05] MEDS: ATORVASTATIN 20 MG TAB PO SCH (19:54)
[2018-12-05 20:00] VITALS: BP 148/85
[2018-12-05] MEDS: ACETAMINOPHEN TAB 650MG DOSE (2X325MG) PO PRN (21:17)
--- NOTE | 2018-12-05 23:44 | IPNPDOC ---
Text Note Date of Service The patient was seen on 12/05/18. NOTE SUBJECTIVE: Does not offer any complaints today. No fever or chills, No nausea or vomiting or diarrhea. Had secondary closure of right foot wound with vancomycin beads. Sugars have been running high . increased levemir insulin. PHYSICAL EXAMINATION: Vitals : as below GENERAL: awake alert oriented x 3, no no acute distress HEENT: Normocephalic, atraumatic, moist mucus membranes, an icteric eyes. Lungs: clear to auscultation , no ronchi or chrackles Heart: Regular rate and rhythm. No rub , murmur of gallop Abdomen: Soft, nontender. normal bowel sounds Right foot is dressed. Right leg has a regression of erythema from the inked margins. Labs and radiology : reviewed. Assessment and Plan: This is a 47 yo female with pmhx of DM2, HLD, and HTn who presented to the ED for worsening right foot ulcer and cellulitis . Patient said she has a plantar ulcer since May 2018 followed with fanta Pizano with no healing. She said 1-2 weeks ago she was having intermittent fevers , tmax of 103.4 and noticed a red rash on her right leg, but it eventually went away, then this week she noticed that her foot looks more red, swelling, some tenderness and pus drainage. She decided to monitor it and realized that it has been getting worse so she came in today. Patient said she has not followed up with her pmd because she lost her job and could no longer afford to go see her pmd or the copay. Per patient since she was away from home for about a week and she was not able to take her meds because she left them at her home. Since Thursday she has had intermittent chills, and low grade fever, but no nausea, vomiting , diarrhea, chest pain or sob. Cellulitis and abscess of right foot diabetic foot ulcer s/p I/D on 11/29 with secondary closure on 12/03 with vancomycin beads. Culture from OR growing a few MRSA Anaerobic culture is negative. On Unasyn,vancomycin. Type 2 diabetes. On levemir and lispro Hypertensive heart disease. Continue lisinopril 20 mg daily. Hyperlipidemia. Continue Lipitor 40 mg daily. DVT prophylaxis in place. VS,Fishbone, I+O VS, Fishbone, I+O Laboratory Tests 12/05/18 07:29 Red Blood Count 4.30, Mean Corpuscular Volume 87.0, Mean Corpuscular Hemoglobin 28.4, Mean Corpuscular Hemoglobin Concent 32.6, Red Cell Distribution Width 13.3, Neutrophils (%) (Auto) 54.7, Lymphocytes (%) (Auto) 34.4, Monocytes (%) (Auto) 5.8 H, Eosinophils (%) (Auto) 2.7, Basophils (%) (Auto) 0.6, Neutrophils # (Auto) 4.7, Lymphocytes # (Auto) 2.9, Monocytes # (Auto) 0.5, Eosinophils # (Auto) 0.2, Basophils # (Auto) 0.1, Calcium Level 8.3 L Vital Signs Date Time Temp Pulse Resp B/P (MAP) Pulse Ox O2 Delivery O2 Flow Rate FiO2 12/05/18 20:00 97.6 94 18 148/85 (106) 97 12/05/18 14:00 153.0 85 12/03/18 13:25 Room Air I&O- Last 24 Hours up to 6 AM 12/05/18 06:00 Intake Total 1720 ml Output Total 1000 ml Balance 720 ml TERESITA MÁRQUEZ MD Dec 05, 2018 23:44
--- NOTE | 2018-12-06 02:08 | PHACANCOPD ---
PHARMACY VANCOMYCIN DOSING Pt Demographics Demographics Patient Age:47 , Weight:86.500 , Gender: female Adjusted Body Weight Date: 12/06/18, Adjusted Body Weight: Kg Events Past 24 Hours Events Past 24 Hours: NO: Dialysis, Diuretic Therapy, Change in CrCl, Fever, Elevation in WBC, Pending Diagnostics, Pending Procedures, Other Vancomycin Vancomycin Target Ranges: 15-20 mcg/ml Vancomycin Load Y/N: No Load Dose Date Time Vancomycin Load Dose: Date: Time: Vancomycin Dose Date: 12/06/18. Current Vancomycin Dose: [1250MG Q8H] Intermittent Dosing?: No Labs Labs Item Value Date Time White Blood Count 8.5 10^3/uL 12/05/1829 Glomerular Filtration Rate > 60.0 12/05/1829 Creatinine 0.76 MG/DL 12/05/18728 Blood Urea Nitrogen 15 MG/DL 12/05/18 0729 Vancomycin Level Trough 21.8 UG/ML H 12/06/18 0114 Vital Signs Label Value Date Time Patient Temperature 97.6 degrees F 12/05/181999 Temperature Source Temporal 12/05/181999 Micro Microbiology 11/27/18 Blood Culture - Final, Complete NO GROWTH AFTER 5 DAYS 11/27/18 Blood Culture - Final, Complete Strep Dysgalactiae Sp Equisim 11/29/18 Gram Stain - Final, Complete 11/29/18 Wound Culture - Final, Complete Staph.aureus Methicillin Resis Staphylococcus Aureus Corynebacterium Species 11/29/18 Anaerobic Culture - Final, Complete 11/27/18 Gram Stain - Final, Complete 11/27/18 Wound Culture - Final, Complete Staphylococcus Aureus Strep Dysgalactiae Ssp Equisim#2 Creatinine Clearance Date:12/06/18. Creatinine Clearance: [~80]. Pending Labs Trough 12-06 @ 1700 Assessment and Plan Maintaining Current Dose?: Yes Reason for dose change: No Dose Change Pharmacist Note Pharmacist Note Date: 12/06/18. Pharmacist note:Trough of 21.8 is slightly above target range but is based on a 6 1/4 hour interval. Will continue to monitor and make adjustments as needed. Additional trough ordered for 02 @1700. [facility] Dec 06, 2018 02:08
[2018-12-06] MEDS: VANCOMYCIN HCL 750 MG, VIAL MATE ADAPTER 1 EACH in D5W 250 ML IV SCH ×2 (02:22→09:21)
[2018-12-06] MEDS: VANCOMYCIN HCL 500 MG in D5W MINI-BAG PLUS 100 ML IV SCH ×2 (03:49→11:12)
[2018-12-06 04:00] VITALS: BP 122/75
[2018-12-06] MEDS: HEPARIN SOD (PORCINE) 5000 UNITS/ML VIAL SC SCH ×3 (06:38→21:15)
[2018-12-06 07:06] LABS: BASO # 0.1 10^3/uL (0.0-0.2); BASO % 0.6 % (0.0-1.0); EOS # 0.2 10^3/uL (0.0-0.50); EOS % 2.5 % (0.0-3.0); HEMATOCRIT 39.1 % (36.0-47.0); LYMPH # 2.4 10^3/uL (1.5-4.5); LYMPH % 30.1 % (24.0-44.0); MEAN CORPUSCULAR HEMOGLOBIN 28.4 pg (27.0-33.0); MEAN CORPUSCULAR HGB CONC 33.2 g/dl (32.0-36.5); MEAN CORPUSCULAR VOLUME 85.4 fl (80.0-96.0); MONO # 0.6 10^3/uL (0.0-0.8); NEUTROPHILS # 4.6 10^3/uL (1.8-7.7); NEUTROPHILS % 58.4 % (36.0-66.0); PLATELET COUNT, AUTOMATED 242 10^3/uL (150-450); RED BLOOD COUNT 4.58 10^6/uL (4.00-5.40); WHITE BLOOD COUNT 7.9 10^3/uL (4.0-10.0)
[2018-12-06 07:29] LABS: BLOOD UREA NITROGEN 15 MG/DL (7-18); CARBON DIOXIDE LEVEL 27 MEQ/L (21-32); CHLORIDE LEVEL 102 MEQ/L (98-107); CREATININE FOR GFR 0.74 MG/DL (0.55-1.30); GLOMERULAR FILTRATION RATE > 60.0 (>58); GLUCOSE, FASTING 273 MG/DL (70-100); POTASSIUM SERUM 4.3 MEQ/L (3.5-5.1); SODIUM LEVEL 134 MEQ/L (136-145)
[2018-12-06] MEDS: LEVEMIR (INSULIN DETEMIR) 1 UNITS/0.01ML SC SCH ×2 (08:55→21:14)
[2018-12-06] MEDS: SENOKOT S TAB PO SCH ×2 (08:55→21:15)
[2018-12-06] MEDS: HumaLOG INSULIN (NovoLOG) PER UNIT SC SCH ×4 (08:55→21:14)
[2018-12-06] MEDS: LISINOPRIL 20 MG TAB PO SCH (08:56)
[2018-12-06] MEDS: ACETAMINOPHEN TAB 650MG DOSE (2X325MG) PO PRN (09:21)
[2018-12-06 13:43] VITALS: BP 107/67
[2018-12-06] MEDS: DOXYCYCLINE HYCLATE 100 MG TAB PO SCH ×2 (14:28→21:15)
--- NOTE | 2018-12-06 14:52 | RO ---
DATE OF PROCEDURE: 12/03/2018 PREOPERATIVE DIAGNOSIS: Stage IV wound right foot. POSTOPERATIVE DIAGNOSIS: Stage IV wound right foot. PROCEDURE: Incisional debridement through muscle with delayed primary closure right foot. SURGEON: Dr. Bentley Carroll DPM VAN CDL DRIVER: None. ANESTHESIA: Local MAC IRRIGATION: Dilute vancomycin solution with a low pressure pulsed lavage system. IMPLANTS UTILIZED: 10 5 mm vancomycin beads. DESCRIPTION OF OPERATION: On 12/03/2018, this 47-year-old female was taken from her hospital room to the operating room and placed on the operating room table in a supine position. Following the induction of IV sedation, local regional anesthesia, the right lower extremity was prepped and draped in the usual aseptic manner. Utilizing a Marquis dermal curette as well as bone curettes, the wound was debrided incisionally through the level of the muscle and the wound was then pulsed lavage with dilute vancomycin solution with a low pressure pulse lavage system. After 10 beads were placed into the operative wound, the wound was closed with #3-0 nylon suture in a simple interrupted type fashion. The smaller ulcer on the plantar surface could not be closed. This was left open. Sterile dressing was applied Adaptic, 4 x 4's, Idania and Kerlix. The patient having apparently tolerated the surgical procedure well was taken from the operating room (OR) to the recovery room for further monitoring by the anesthesia department. TRACY
[2018-12-06] MEDS: ATORVASTATIN 20 MG TAB PO SCH (21:15)
[2018-12-06 22:00] VITALS: BP 116/77
--- NOTE | 2018-12-06 23:51 | IPNPDOC ---
Text Note Date of Service The patient was seen on 12/06/18. NOTE SUBJECTIVE: Does not offer any complaints today. No fever or chills, No nausea or vomiting or diarrhea. Had secondary closure of right foot wound with vancomycin beads. Sugars have been running high . increased levemir insulin. PHYSICAL EXAMINATION: Vitals : as below GENERAL: awake alert oriented x 3, no no acute distress HEENT: Normocephalic, atraumatic, moist mucus membranes, an icteric eyes. Lungs: clear to auscultation , no ronchi or chrackles Heart: Regular rate and rhythm. No rub , murmur of gallop Abdomen: Soft, nontender. normal bowel sounds Right foot is dressed. Right leg has a regression of erythema from the inked margins. Labs and radiology : reviewed. Assessment and Plan: This is a 47 yo female with pmhx of DM2, HLD, and HTn who presented to the ED for worsening right foot ulcer and cellulitis . Patient said she has a plantar ulcer since May 2018 followed with fanta Pizano with no healing. She said 1-2 weeks ago she was having intermittent fevers , tmax of 103.4 and noticed a red rash on her right leg, but it eventually went away, then this week she noticed that her foot looks more red, swelling, some tenderness and pus drainage. She decided to monitor it and realized that it has been getting worse so she came in today. Patient said she has not followed up with her pmd because she lost her job and could no longer afford to go see her pmd or the copay. Per patient since she was away from home for about a week and she was not able to take her meds because she left them at her home. Since Thursday she has had intermittent chills, and low grade fever, but no nausea, vomiting , diarrhea, chest pain or sob. Cellulitis and abscess of right foot diabetic foot ulcer s/p I/D on 11/29 with secondary closure on 12/03 with vancomycin beads by Dr Carroll. Culture from OR growing a few MRSA Anaerobic culture is negative. finished 10 days of vancomycin and 7 days of ampicillin. will change to doxycycline. Type 2 diabetes. On levemir and lispro sugars not well controlled. levemir adjusted Hypertensive heart disease. Continue lisinopril 20 mg daily. Hyperlipidemia. Continue Lipitor 40 mg daily. DVT prophylaxis in place. VS,Fishbone, I+O VS, Fishbone, I+O Laboratory Tests 12/06/18 06:54 Red Blood Count 4.58, Mean Corpuscular Volume 85.4, Mean Corpuscular Hemoglobin 28.4, Mean Corpuscular Hemoglobin Concent 33.2, Red Cell Distribution Width 13.3, Neutrophils (%) (Auto) 58.4, Lymphocytes (%) (Auto) 30.1, Monocytes (%) (Auto) 7.0 H, Eosinophils (%) (Auto) 2.5, Basophils (%) (Auto) 0.6, Neutrophils # (Auto) 4.6, Lymphocytes # (Auto) 2.4, Monocytes # (Auto) 0.6, Eosinophils # (Auto) 0.2, Basophils # (Auto) 0.1, Calcium Level 9.0 Vital Signs Date Time Temp Pulse Resp B/P (MAP) Pulse Ox O2 Delivery O2 Flow Rate FiO2 12/06/18 22:00 97.1 90 16 116/77 (90) 97 12/05/18 14:00 153.0 85 12/03/18 13:25 Room Air I&O- Last 24 Hours up to 6 AM 12/06/18 06:00 Intake Total 2430 ml Output Total 2000 ml Balance 430 ml TERESITA MÁRQUEZ MD Dec 06, 2018 23:51
[2018-12-07 06:00] VITALS: BP_SYST 138; BP_SYST 160; BP_DIAS 63; BP_DIAS 85
[2018-12-07] MEDS: HEPARIN SOD (PORCINE) 5000 UNITS/ML VIAL SC SCH (06:32)
[2018-12-07 07:47] LABS: BASO % 0.5 % (0.0-1.0); EOS # 0.2 10^3/uL (0.0-0.50); EOS % 2.2 % (0.0-3.0); HEMATOCRIT 37.4 % (36.0-47.0); HEMOGLOBIN 12.6 g/dl (12.0-15.5); LYMPH # 2.6 10^3/uL (1.5-4.5); LYMPH % 35.5 % (24.0-44.0); MEAN CORPUSCULAR HEMOGLOBIN 28.8 pg (27.0-33.0); MEAN CORPUSCULAR HGB CONC 33.7 g/dl (32.0-36.5); MEAN CORPUSCULAR VOLUME 85.4 fl (80.0-96.0); MONO # 0.6 10^3/uL (0.0-0.8); MONO % 7.6 % (0.0-5.0); NEUTROPHILS # 3.9 10^3/uL (1.8-7.7); NEUTROPHILS % 53.1 % (36.0-66.0); PLATELET COUNT, AUTOMATED 223 10^3/uL (150-450); RED BLOOD COUNT 4.38 10^6/uL (4.00-5.40); WHITE BLOOD COUNT 7.4 10^3/uL (4.0-10.0)
[2018-12-07 08:14] LABS: BLOOD UREA NITROGEN 18 MG/DL (7-18); CALCIUM LEVEL 8.8 MG/DL (8.5-10.1); CARBON DIOXIDE LEVEL 25 MEQ/L (21-32); CHLORIDE LEVEL 102 MEQ/L (98-107); CREATININE FOR GFR 0.69 MG/DL (0.55-1.30); GLOMERULAR FILTRATION RATE > 60.0 (>58); GLUCOSE, FASTING 279 MG/DL (70-100); POTASSIUM SERUM 4.3 MEQ/L (3.5-5.1); SODIUM LEVEL 134 MEQ/L (136-145)
[2018-12-07 09:11] VITALS: BP 160/85
[2018-12-07] MEDS: LEVEMIR (INSULIN DETEMIR) 1 UNITS/0.01ML SC SCH (09:11)
[2018-12-07] MEDS: LISINOPRIL 20 MG TAB PO SCH (09:11)
[2018-12-07] MEDS: DOXYCYCLINE HYCLATE 100 MG TAB PO SCH (09:11)
[2018-12-07] MEDS: SENOKOT S TAB PO SCH (09:11)
[2018-12-07] MEDS: HumaLOG INSULIN (NovoLOG) PER UNIT SC SCH (09:12)
[2018-12-07] MEDS ORDERED: DOXY100T PO (09:25)
--- NOTE | 2018-12-07 09:33 | DS.PDOC ---
Discharge Summary General Date of Admission Nov 27, 2018 at 15:30 Date of Discharge 12/07/18 Discharge Summary MAINTENANCE DISPATCHER: DR. TIRADO VASCULAR SURGERY: DR. JENNIFER DOWLING PROCEDURES: Dr. Tirado: 12/03/18 : Stage IV wound right foot. Incisional debridement through muscle with delayed primary closure right foot. DISCHARGE DIAGNOSES: Stage IV right foot diabetic wound infection Cellulitis of the right foot DM2 HTN Hyperlipidemia Hypertensive heart disease DISCHARGE MEDS: PLS SEE BELOW HISTORY OF PRESENTING ILLNESS: This is a 47 yo female with pmhx of DM2, HLD, and HTn who presented to the ED for worsening right foot ulcer and cellulitis . Patient said she has a plantar ulcer since May 2018 followed with fanta Pizano with no healing. She said 1-2 weeks ago she was having intermittent fevers , tmax of 103.4 and noticed a red rash on her right leg, but it eventually went away, then this week she noticed that her foot looks more red, swelling, some tenderness and pus drainage. She decided to monitor it and realized that it has been getting worse so she came in today. Patient said she has not followed up with her pmd because she lost her job and could no longer afford to go see her pmd or the copay. Per patient since she was away from home for about a week and she was not able to take her meds because she left them at her home. Since Thursday she has had intermittent chills, and low grade fever, but no nausea, vomiting , diarrhea, chest pain or sob. HOSPITAL COURSE: Cellulitis and abscess of right foot diabetic foot ulcer s/p I/D on 11/29 with secondary closure on 12/03 with vancomycin beads by Dr Tirado. Culture from OR growing a few MRSA Anaerobic culture is negative. finished 10 days of vancomycin and 7 days of ampicillin. will change to doxycycline X 10 DAYS as outpt Type 2 diabetes. On levemir and lispro sugars not well controlled. levemir adjusted Hypertensive heart disease. Continue lisinopril 20 mg daily. Hyperlipidemia. Continue Lipitor 40 mg daily. DVT prophylaxis in place. DISCHARGE PHYSICAL EXAMINATION: Vitals : as below GENERAL: awake alert oriented x 3, no no acute distress HEENT: Normocephalic, atraumatic, moist mucus membranes, an icteric eyes. Lungs: clear to auscultation , no ronchi or chrackles Heart: Regular rate and rhythm. No rub , murmur of gallop Abdomen: Soft, nontender. normal bowel sounds Right foot is dressed. Right leg has a regression of erythema from the inked margins. Labs and radiology : pls see below Lower extremity arterial bowel were ultrasound Peak Systolic Phasicity Velocity CLINICAL ASSESSMENT MANAGER 83.9 triphasic Profunda 70.6 biphasic SFA prox 88.2 triphasic SFA mid 147 triphasic SFA dist 149 triphasic Pop 95.4 triphasic JAY JAY prox 30.4 biphasic Tib/P tr 81.9 triphasic TH[employer] STE[employer] P[employer]ER pr 81.0 monophasic TH[employer] STEEL P[employer]ER dst 117 monophasic JAY JAY dst 51.7 monophasic The because of bandages the distal JAY JAY could not be evaluated. There is mild to moderate plaque throughout the the arterial system. Monophasic wave forms are identified in the proximal and distal THIRD STEEL POURER and the proximal JAY JAY. The distal JAY JAY could not be imaged because of bandages. Increased flow is identified in the distal THIRD STEEL P[employer]ER questionably secondary to cellulitis. No significant occlusions or stenosis are identified. Electronically Signed by Peter Barnett MD 11/30/2018 03:59 P RIGHT FOOT SERIES: Four views of the right foot are performed and compared to a prior study of 04/02/2018. There is absence of the third metatarsal shaft and head with a small portion of the base of the third metatarsal again seen as on prior study. There is smooth periosteal reaction along the distal half of the second metatarsal with absence of the head of that metatarsal. Smooth erosive changes seen at the base of the second proximal phalanx. There is absence of the proximal half of the third proximal phalanx. There is absence of the fourth distal phalanx. Ulceration is seen in the plantar soft tissues at the level of the metatarsal phalangeal joints. Large calcaneal spurs are seen. I see no acute fracture and there is no definite radiographic signs of acute osteomyelitis with no osseous destruction or acute periosteal reaction. Electronically Signed by Peter Charles MD 11/27/2018 07:32 P DD: Peter Charles MD, MD 11/27/18 1252 DT: NAVARRO 11/27/18 1345 DS: ANDREA 11/27/18193111/[id number]/181931 TIME SPENT ON DISCHARGE: 30 MIN. Vital Signs/I&Os Vital Signs Date Time Temp Pulse Resp B/P (MAP) Pulse Ox O2 Delivery O2 Flow Rate FiO2 12/07/18 09:11 160/85 12/07/18 06:00 97.8 89 18 98 12/05/18 14:00 153.0 85 12/03/18 13:25 Room Air I&O- Last 24 Hours up to 6 AM 12/07/18 06:00 Intake Total 1690 ml Output Total 1400 ml Balance 290 ml Laboratory Data Labs 24H Laboratory Tests 2 12/06/18 12:00: Bedside Glucose (Misc Panel) 338H 12/06/18 17:31: Bedside Glucose (Misc Panel) 355H 12/06/18 21:01: Bedside Glucose (Misc Panel) 288H 12/07/18 07:22: Immature Granulocyte % (Auto) 1.1, White Blood Count 7.4, Red Blood Count 4.38, Hemoglobin 12.6, Hematocrit 37.4, Mean Corpuscular Volume 85.4, Mean Corpuscular Hemoglobin 28.8, Mean Corpuscular Hemoglobin Concent 33.7, Red Cell Distribution Width 13.5, Platelet Count 223, Neutrophils (%) (Auto) 53.1, Lymphocytes (%) (Auto) 35.5, Monocytes (%) (Auto) 7.6H, Eosinophils (%) (Auto) 2.2, Basophils (%) (Auto) 0.5, Neutrophils # (Auto) 3.9, Lymphocytes # (Auto) 2.6, Monocytes # (Auto) 0.6, Eosinophils # (Auto) 0.2, Basophils # (Auto) 0.0, Nucleated Red Blood Cells % (auto) 0.0, Anion Gap 7L, Glomerular Filtration Rate > 60.0, Blood Urea Nitrogen 18, Creatinine 0.69, Sodium Level 134L, Potassium Level 4.3, Chloride Level 102, Carbon Dioxide Level 25, Calcium Level 8.8 CBC/BMP Laboratory Tests 12/07/18 07:22 Red Blood Count 4.38, Mean Corpuscular Volume 85.4, Mean Corpuscular Hemoglobin 28.8, Mean Corpuscular Hemoglobin Concent 33.7, Red Cell Distribution Width 13.5, Neutrophils (%) (Auto) 53.1, Lymphocytes (%) (Auto) 35.5, Monocytes (%) (Auto) 7.6 H, Eosinophils (%) (Auto) 2.2, Basophils (%) (Auto) 0.5, Neutrophils # (Auto) 3.9, Lymphocytes # (Auto) 2.6, Monocytes # (Auto) 0.6, Eosinophils # (Auto) 0.2, Basophils # (Auto) 0.0, Calcium Level 8.8 FSBS Laboratory Tests Test 12/06/18 12:00 12/06/18 17:31 12/06/18 21:01 Range/Units Bedside Glucose (Misc Panel) 338 355 288 70-105 MG/DL Microbiology Microbiology 11/27/18 Blood Culture - Final, Complete NO GROWTH AFTER 5 DAYS 11/27/18 Blood Culture - Final, Complete Strep Dysgalactiae Sp Equisim 11/29/18 Gram Stain - Final, Complete 11/29/18 Wound Culture - Final, Complete Staph.aureus Methicillin Resis Staphylococcus Aureus Corynebacterium Species 11/29/18 Anaerobic Culture - Final, Complete 11/27/18 Gram Stain - Final, Complete 11/27/18 Wound Culture - Final, Complete Staphylococcus Aureus Strep Dysgalactiae Ssp Equisim#2 Discharge Medications Scheduled (Morena Fung) 100 Unit/Ml Inj, 10 UNIT SC DAILY, (Reported) Atorvastatin Calcium (Atorvastatin Calcium) 40 Mg Tab, 40 MG PO QHS, (Reported) Doxycycline Hyclate (Doxycycline Hyclate) 100 Mg Tab, 100 MG PO BID Lisinopril (Lisinopril) 20 Mg Tab, 20 MG PO DAILY, (Reported) Metformin Hydrochloride (Metformin HCl) 1,000 Mg Tab, 1,000 MG PO BID, (Reporte d) Allergies Coded Allergies: No Known Allergies (Unverified , 06/02/18) ZIA BERRIOS MD Dec 07, 2018 09:28
--- NOTE | 2018-12-07 22:03 | IPN ---
DATE: 12/07/2018 CHIEF COMPLAINT: Patient seen today for evaluation of right foot surgery, incision and drainage of complex abscess dorsal and plantar aspects of her right foot. The patient denies shortness of breath or chest pain. She denies fever or chills. She describes occasional pain in her right foot. Bandage is intact plantar surface of the foot with minimal discharge. Bandage was removed today revealing the incision dorsally and plantarly to be intact. There is no discharge. Considerable reduction in swelling. No residual erythema is noted. Laboratory studies reviewed - reveals growth of methicillin-resistant Staphylococcus aureus, as well as Staphylococcus aureus from the surgical culture site. White blood cell count is 7.4. ASSESSMENT: Status post incision and drainage of complex abscess dorsal and plantar aspects of the right foot. PLAN: A dry sterile dressing was applied to the patient's right foot. The patient can ambulate; however, she was advised to try to keep the weight to the rear of her foot, preferably heel with touch weightbearing. She will be discharged on doxycycline 100 mg by mouth twice a day for 5 days. She will return to the office early next week for followup. Her questions were answered.
== END 2018-12-07 11:15 | disposition home or self-care (01) | DRG 364 ==
LOC: M ED 11:43 → M ED INP 15:30 → M MS4PR 16:20
PROVIDERS: ADMIT Internal Medicine Nephrology; ATTEND General Practice
PROC: 0HDMXZZ Extraction of Right Foot Skin, External Approach (ICD-10-PCS; 2018-11-29)
PROC: 0KDV0ZZ Extraction of Right Foot Muscle, Open Approach (ICD-10-PCS; principal; 2018-12-03 12:00)
DX: E11.621 Type 2 diabetes mellitus with foot ulcer (principal); E11.42 Type 2 diabetes mellitus with diabetic polyneuropathy; L97.516 Non-pressure chronic ulcer of other part of right foot with bone involvement without evidence of necrosis; I11.9 Hypertensive heart disease without heart failure; E11.65 Type 2 diabetes mellitus with hyperglycemia; L03.115 Cellulitis of right lower limb; E78.5 Hyperlipidemia, unspecified; Z79.84 Long term (current) use of oral hypoglycemic drugs; Z91.14 Patient's other noncompliance with medication regimen; Z79.899 Other long term (current) drug therapy

== ENCOUNTER 2019-01-04 11:55 | Inpatient (IN) | payer BC ==
[~2019-01-04] VITALS: Ht 160 cm; Wt 86.8 kg
[~2019-01-04 11:55] MED LIST changes: +DOXY100T PO
[2019-01-04 13:53] LABS: BASO % 0.3 % (0.0-1.0); EOS # 0.1 10^3/uL (0.0-0.50); EOS % 0.8 % (0.0-3.0); HEMATOCRIT 40.2 % (36.0-47.0); HEMOGLOBIN 12.9 g/dl (12.0-15.5); LYMPH # 2.1 10^3/uL (1.5-4.5); LYMPH % 18.2 % (24.0-44.0); MEAN CORPUSCULAR HEMOGLOBIN 27.9 pg (27.0-33.0); MEAN CORPUSCULAR HGB CONC 32.1 g/dl (32.0-36.5); MONO # 0.8 10^3/uL (0.0-0.8); MONO % 6.8 % (0.0-5.0); NEUTROPHILS # 8.6 10^3/uL (1.8-7.7); NEUTROPHILS % 73.5 % (36.0-66.0); PLATELET COUNT, AUTOMATED 239 10^3/uL (150-450); RED BLOOD COUNT 4.62 10^6/uL (4.00-5.40); WHITE BLOOD COUNT 11.7 10^3/uL (4.0-10.0)
[2019-01-04 14:15] LABS: ALBUMIN 3.2 GM/DL (3.2-5.2); ALT/SGPT 12 U/L (12-78); BILIRUBIN,DIRECT 0.2 MG/DL (0.0-0.2); BILIRUBIN,TOTAL 0.8 MG/DL (0.2-1.0); BLOOD UREA NITROGEN 11 MG/DL (7-18); CALCIUM LEVEL 8.4 MG/DL (8.5-10.1); CARBON DIOXIDE LEVEL 26 MEQ/L (21-32); CHLORIDE LEVEL 103 MEQ/L (98-107); CREATININE FOR GFR 0.75 MG/DL (0.55-1.30); GLOMERULAR FILTRATION RATE > 60.0 (>58); GLUCOSE, FASTING 311 MG/DL (70-100); POTASSIUM SERUM 4.4 MEQ/L (3.5-5.1); SODIUM LEVEL 134 MEQ/L (136-145); TOTAL PROTEIN 6.8 GM/DL (6.4-8.2)
[2019-01-04 14:25] LABS: ERYTHROCYTE SEDIMENTATION RATE 63 mm/hr (0-20)
[2019-01-04] MEDS ORDERED: PIPERACILLIN/TAZOBACTAM SOD 3.375 GM in D5W MINI-BAG PLUS 50 ML IV ONE (15:45)
[2019-01-04] MEDS ORDERED: SILV1CRE60 TOP (16:08)
[2019-01-04] MEDS ORDERED: PROHANCE 279.3MG/ML 15ML VIAL (A9576) As Ordered ONE (16:48)
[2019-01-04] MEDS ORDERED: PROHANCE 279.3MG/ML 5ML VIAL (A9576) As Ordered ONE (16:48)
--- NOTE | 2019-01-04 16:52 | REP ---
RIGHT FOOT SERIES: Four views of the right foot are performed and compared to prior study of 11/27/2018. Soft tissue ulcer is seen near the fourth metatarsophalangeal joint. There is new osseous destruction of the distal aspect of the fourth metatarsal with associated periosteal reaction along the adjacent distal shaft of the fourth metatarsal. There is erosive destruction at the base of the fourth proximal phalanx with associated periosteal reaction. The findings are consistent with osteomyelitis. No other new osseous findings are seen. The bulk of the third metatarsal and base of third proximal phalanx are absent. Chronic erosive change is seen in the distal end of the second metatarsal and adjacent base of second proximal phalanx. Large spurs are seen of the calcaneus. IMPRESSION: New osseous destruction and periosteal reaction involving the distal portion of the fourth metatarsal and proximal aspect of the fourth proximal phalanx, consistent with osteomyelitis of these structures. Electronically Signed by Peter Charles MD 01/05/2019 01:21 P
--- NOTE | 2019-01-04 19:08 | REP ---
MRI RIGHT FOOT WITH AND WITHOUT CONTRAST: HISTORY: Right foot swelling and ulceration. Multiple sequences obtained in the axial, coronal and sagittal planes prior to and following the intravenous administration of 60 mL ProHance. There is abnormal low signal on T1 and high signal on T2 involving the fourth metatarsal and fourth proximal phalanx. There is erosive destruction of the fourth metatarsal head and base of fourth proximal phalanx. There is associated enhancement of the osseous structures. Findings are consistent with osteomyelitis of the fourth metatarsal and proximal phalanx. Other adjacent osseous structures do not demonstrate abnormal bone marrow signal. Third metatarsal is basically absent. There is diffuse edema in the soft tissues of the foot. There is also diffuse enhancement predominately in the forefoot compatible with cellulitis. There is a 2 cm pocket of fluid in the dorsal soft tissues adjacent to the fourth metatarsophalangeal joint, and a 3 cm pocket of irregular fluid in the plantar soft tissues adjacent to the fourth metatarsophalangeal joint, most consistent with abscess collections. IMPRESSION: Osteomyelitis fourth metatarsal and fourth proximal phalanx. Adjacent pocket of fluid in the dorsal soft tissues measuring 2 cm in diameter and in the plantar soft tissues 3 cm in diameter likely represent abscess collections. There is associated cellulitis. Electronically Signed by Peter Charles MD 01/05/2019 01:45 P
[2019-01-04] MEDS ORDERED: VANCOMYCIN HCL 1,000 MG, VIAL MATE ADAPTER 1 EACH in D5W 250 ML IV ONE (19:15)
[2019-01-04] MEDS ORDERED: GLUCAGON FOR INJ 1 MG VIAL (J1610) SC PRN (19:15)
[2019-01-04] MEDS ORDERED: DEXTROSE 50% 50 ML SYRINGE IV PRN (19:15)
[2019-01-04] MEDS ORDERED: GLUCOSE 4 GM CHEW TABLET PO PRN (19:15)
--- NOTE | 2019-01-04 21:21 | HPE ---
DATE OF ADMISSION: 01/04/2019 CHIEF COMPLAINT: Swollen right foot. This is a 48-year-old female with a past medical history of type 2 diabetes, hypertension, hyperlipidemia with prior history of right foot diabetic foot ulcer requiring incision and drainage (I and D) and secondary closure in November with Dr. Carroll, who now presents with chief complaint of worsening right foot ulcer and swollen right foot. The patient was recently admitted here on 11/27/2018 and discharged on 12/07/2018 for management of this right foot wound. At that time, she had an incisional debridement through the muscle with delayed primary closure of the right foot, which was done on 12/03/2018. She was sent home with a course of doxycycline, which she completed as an outpatient. She recently saw Dr. Carroll last week and things were progressing well. However, she reports now that since Thursday, her right foot has become more swollen, more warm, and this morning the wound on the dorsum of her foot opened up. She came in for further evaluation. REVIEW OF SYSTEMS: Negative in 14 out of 14 systems except as noted above. PAST MEDICAL HISTORY: As noted above in history of the present illness. PAST SURGICAL HISTORY: Patient has a history of a right 4th toe amputation and previous surgery on her right foot 2 years ago, as well as the incision and drainage done on her right foot on 11/29/2018 and 12/03/2018. HOME MEDICATIONS: Patient's home medications are: - metformin 1 gram by mouth twice daily - Silvadene topical daily - Lipitor 40 mg at bedtime - lisinopril 20 mg daily ALLERGIES: No known drug allergies. SOCIAL HISTORY: The patient is currently disabled secondary to issues with her right foot. She currently lives with her mother. She denies any smoking, alcohol, or drugs. FAMILY HISTORY: She has a long family history of diabetes on both her mother and father's side. All of her siblings have diabetes. PHYSICAL EXAM: Vital signs in the emergency room: Patient is currently afebrile to 97.1, blood pressure 129/74, pulse of 106, respirations 16, saturating 97% on room air. In general, she is in no acute distress and comfortable and without pain. HEENT: Oropharynx clear. Neck: Supple. Cardiovascular: Regular rate and rhythm. No murmurs, rubs, or gallops. Lungs: Clear to auscultation bilaterally. Abdomen: Soft, nontender, nondistended, positive bowel sounds. Extremities: Patient's right foot is quite swollen and erythematous. There is also a patch of erythema on her [place]. She has got an open wound on the dorsum of her foot, as well as on the plantar aspect of her foot with what appears to be a sinus tract connecting. The foot is quite swollen and fluctuant. Her right 4th toe has a previous amputation. Skin: As noted above in extremity exam, patient does have a couple of open wounds with some drainage and fluctuance. Neurologic: The patient is alert and oriented times three, follows simple commands. No focal neurologic deficits. Musculoskeletal: Moves all extremities equally. Psychiatric: Mood stable. LABS: Reveal leukocytosis with a white count of 11.7, platelets of 239. Chemistry shows a creatinine of 0.75, sodium of 134, CRP of 14. Wound cultures and blood cultures were sent and pending. IMAGING: The patient has a right foot x-ray that shows new osseous destruction and periosteal reaction involving the distal portion of the 4th metatarsal and proximal aspect of the 4th proximal phalanx, consistent with osteomyelitis of these structures. MRI of the right foot is pending. ASSESSMENT AND PLAN: This is a 48-year-old female with past medical history of diabetes, hypertension, hyperlipidemia with prior diabetic right foot ulcer, who presents with worsening right foot wound, swelling, erythema with x-ray findings consistent with osteomyelitis. PROBLEMS: 1. Right foot osteomyelitis. Patient's diabetic right foot wound with worsening inflammatory markers and x-ray findings suggest osteomyelitis. At this time, I am going to start the patient on broad-spectrum antibiotics with vancomycin and Zosyn. Dr. Carroll is already aware of the patient and will see her tonight. I have made her nothing by mouth after midnight in case of surgery tomorrow. The wound appears like it will need to be drained. We will follow her wound cultures and blood cultures. An MRI of the right foot has been ordered and is pending. 2. Diabetes. At this time, I am going to hold her home metformin and place her on a sliding scale. 3. Hypertension. I have continued her home lisinopril. 4. Hyperlipidemia. I am continuing her home Lipitor. 5. Deep vein thrombosis (DVT) prophylaxis. Given patient will be going for OR, holding pharmacologic DVT prophylaxis at this time. This can be started postoperatively.
[2019-01-04] MEDS: HumaLOG INSULIN (NovoLOG) PER UNIT SC SCH (22:16)
[2019-01-04] MEDS: ATORVASTATIN 20 MG TAB PO SCH (22:16)
[2019-01-04] MEDS: PIPERACILLIN/TAZOBACTAM SOD 3.375 GM in D5W MINI-BAG PLUS 50 ML IV SCH (22:17)
[2019-01-04 22:50] VITALS: BP 141/77
--- NOTE | 2019-01-04 23:20 | IPN ---
DATE: 01/04/2019 Time: 8:34 pm CHIEF COMPLAINT: 47-year-old female seen for evaluation of a swollen and infected right foot. Patient has a history of a third metatarsal amputation of the right foot in the past who had a longstanding ulcer on the plantar surface of the foot. This did get infected recently, formed an abscess which was surgically drained, packed open with eventual delayed primary closure. She initially did well, however, on Thursday her foot started to swell again and this morning she noticed considerable drainage from her right foot. She went to the emergency department and was subsequently admitted and is seen now for evaluation. PAST MEDICAL HISTORY: Type 2 diabetes. Peripheral neuropathy. Hypertension. Hyperlipidemia. PAST SURGICAL HISTORY: Resection of third metatarsal right foot. AT HOME MEDICATIONS: - atorvastatin 40 mg by mouth at bedtime - lisinopril 20 mg by mouth daily - metformin 1000 mg by mouth twice a day - Basaglar KwikPen 100 units injector. She takes 10 units daily ALLERGIES: No known allergies. Evaluation of the patient's right foot reveals an area of swelling dorsally measuring 4 cm from distal to proximal and 3 cm from medial to lateral and 1 cm in height. It is soft to the touch. There is some serous with intermixed purulent discharge. Patient's x-rays were reviewed revealing osteolysis of the fourth metatarsal along the medial and lateral margins with periosteal new bone formation and erosion of the base of the proximal phalanx of the fourth toe consistent with osteomyelitis. MRI reveals osteomyelitis of the fourth metatarsal as well. CBC with differential reveals a white count of 11.7, with neutrophil percentage of 73.5, erythrocyte sedimentation rate 65, C-reactive protein 14.8. ASSESSMENT: Osteomyelitis fourth metatarsal and fourth proximal phalanx right foot. PLAN: Culture was obtained at bedside and we discussed with the patient a fourth right amputation with packing of the wound. We discussed the risks as well as the benefits of proposed surgical correction. Patient will be nothing by mouth (npo) after breakfast tomorrow for surgery tomorrow after 5:00. Her questions were answered.
[2019-01-05] VITALS (9 sets, daily range): BP systolic 103–141; BP diastolic 53–73
--- NOTE | 2019-01-05 01:30 | PHACANCOPD ---
PHARMACY VANCOMYCIN DOSING Pt Demographics Demographics Patient Age:48 , Weight:86.800 , Gender: female Adjusted Body Weight Date: 01/05/19, Adjusted Body Weight: [64.2] Kg Vancomycin Vancomycin indication: OSTEOMYELITIS Vancomycin Target Ranges: 10-20 mcg/ml Vancomycin Load Y/N: No Load Dose Date Time Vancomycin Load Dose: Date: Time: Vancomycin Dose Date: 01/05/19. Current Vancomycin Dose: [1 GM IV Q8H] Intermittent Dosing?: No Labs Labs Laboratory Tests 01/04/19 13:35 Red Blood Count 4.62, Mean Corpuscular Volume 87.0, Mean Corpuscular Hemoglobin 27.9, Mean Corpuscular Hemoglobin Concent 32.1, Red Cell Distribution Width 13.9 , Neutrophils (%) (Auto) 73.5 H, Lymphocytes (%) (Auto) 18.2 L, Monocytes (%) (Auto) 6.8 H, Eosinophils (%) (Auto) 0.8, Basophils (%) (Auto) 0.3, Neutrophils # (Auto) 8.6 H, Lymphocytes # (Auto) 2.1, Monocytes # (Auto) 0.8, Eosinophils # (Auto) 0.1, Basophils # (Auto) 0.0 Micro Microbiology 01/04/19 Blood Culture, Received Pending 01/04/19 Blood Culture, Received Pending 01/04/19 Wound Culture, Received Pending 01/04/19 Gram Stain - Final, Resulted 01/04/19 Wound Culture, Resulted Pending Creatinine Clearance Date:01/05/19. Creatinine Clearance: [92.9].CALCULATED Pending Labs Vancomycin trough due 01/05@1700 Assessment and Plan Maintaining Current Dose?: Yes Reason for dose change: No Dose Change Pharmacist Note Pharmacist Note Date: 01/05/19. Pharmacist note:[id number] W/ Diabetic ulcer/SSSI/ r/o osteomyelitis. Receiving Pip/Tazo 3.375 IV Q6h plus Vancomycin per Pharmacy consult. Vanco 1 gram in ED @1999, then will continue with Vancomycin 1 gram IV [id number] to begin 01/05@0200. First trough is schjeduled for 01/05 1700(prior to the 4th dose) Pharmacy will continue to follow. DIPESH LOPEZ PHARMACY Jan 05, 2019 01:30
[2019-01-05] MEDS: VANCOMYCIN HCL 1,000 MG, VIAL MATE ADAPTER 1 EACH in D5W 250 ML IV SCH ×3 (02:00→17:54)
[2019-01-05] MEDS: ACETAMINOPHEN TAB 650MG DOSE (2X325MG) PO PRN (03:37)
[2019-01-05] MEDS: PIPERACILLIN/TAZOBACTAM SOD 3.375 GM in D5W MINI-BAG PLUS 50 ML IV SCH ×4 (04:24→21:28)
[2019-01-05 07:04] LABS: HEMATOCRIT 35.1 % (36.0-47.0); HEMOGLOBIN 11.5 g/dl (12.0-15.5); MEAN CORPUSCULAR HEMOGLOBIN 28.5 pg (27.0-33.0); MEAN CORPUSCULAR HGB CONC 32.8 g/dl (32.0-36.5); MEAN CORPUSCULAR VOLUME 87.1 fl (80.0-96.0); PLATELET COUNT, AUTOMATED 228 10^3/uL (150-450); RED BLOOD COUNT 4.03 10^6/uL (4.00-5.40); WHITE BLOOD COUNT 7.8 10^3/uL (4.0-10.0)
[2019-01-05 07:31] LABS: BLOOD UREA NITROGEN 15 MG/DL (7-18); CALCIUM LEVEL 8.3 MG/DL (8.5-10.1); CARBON DIOXIDE LEVEL 27 MEQ/L (21-32); CHLORIDE LEVEL 105 MEQ/L (98-107); CREATININE FOR GFR 0.88 MG/DL (0.55-1.30); GLOMERULAR FILTRATION RATE > 60.0 (>58); GLUCOSE, FASTING 252 MG/DL (70-100); POTASSIUM SERUM 3.7 MEQ/L (3.5-5.1); SODIUM LEVEL 138 MEQ/L (136-145)
[2019-01-05 07:56] LABS: INR 1.17; PROTHROMBIN TIME 15.1 SECONDS (12.1-14.4)
[2019-01-05] MEDS: LISINOPRIL 20 MG TAB PO SCH (08:29)
[2019-01-05] MEDS: HumaLOG INSULIN (NovoLOG) PER UNIT SC SCH ×4 (08:30→20:58)
[2019-01-05] MEDS ORDERED: HumaLOG INSULIN (NovoLOG) PER UNIT SC ONE (13:00)
[2019-01-05] MEDS ORDERED: BUPIVACAINE HCL 0.5% 10 ML VIAL As Ordered ONE (13:09)
[2019-01-05] MEDS ORDERED: LIDOCAINE 2% MDV 20 ML VIAL As Ordered ONE ×2 (13:09→17:02)
[2019-01-05] MEDS ORDERED: BUPIVACAINE HCL 0.5% 30 ML VIAL As Ordered ONE (17:01)
[2019-01-05] MEDS ORDERED: GENTAMICIN SULF INJ 80MG/2ML VIAL (J1580) As Ordered ONE (17:32)
[2019-01-05] MEDS ORDERED: TOBRAMYCIN SULF 1.2 GM VIAL As Ordered ONE (17:32)
--- NOTE | 2019-01-05 17:50 | IPNPDOC ---
Date Seen The patient was seen on 01/05/19. Progress Note SUBJECTIVE: Patient tells me that she is feeling well this time she has had no further fevers she denies any chest pressure shortness of breath nausea vomiting or diarrhea OBJECTIVE PHYSICAL EXAMINATION: VITAL SIGNS: Please see below. GENERAL: Pleasant middle-aged female obese sitting up in bed she does not appear to be in any acute distress she is awake alert oriented 3 speaking in complete sentences HEENT:. Symmetric cranial nerves II through XII grossly intact she is wearing glasses CARDIOVASCULAR: S1-S2 regular. RESPIRATORY: Clear to auscultation bilaterally. ABDOMINAL: Obese bowel sounds present abdomen soft and nontender EXTREMITIES: The right lower extremity dressing is clean dry and intact it does appear to be grossly edematous through the dressing LABORATORY DATA, IMAGING STUDIES, MICROBIOLOGY: Please see below. DVT prophylaxis ordered?: Teds and sequentials ASSESSMENT AND PLAN: This is a 48-year-old female with osteomyelitis and abscess of her diabetic foot. PROBLEMS: 1. Osteomyelitis of the fourth metatarsal and fourth proximal phalanx on the right foot as well as associated abscess: Podiatry help greatly appreciated Abscess appears to be be actively draining culture collected at the bedside there is plan to take the patient the operating room today she is nothing by mouth for amputation. I suspect if all infected tissue was able to be removed an d abscess drained she will likely only require a course for 5-10 days related to her remaining cellulitis we will see how surgery goes and await culture data in order to best target therapy. In the interim she has remained on vancomycin and Zosyn 2. Diabetes with significant neuropathy: She is on sliding scale insulin. 3. Dyslipidemia: She continued on atorvastatin. 4. Hypertension: Controlled, She continued on lisinopril DISPOSITION: Pending clinical improvement, PT eval postoperatively as well as determination of weightbearing status. VS, I&O, 24H, Fishbone Vital Signs/I&O Vital Signs Date Time Temp Pulse Resp B/P (MAP) Pulse Ox O2 Delivery O2 Flow Rate FiO2 01/05/19 17:00 95.6 82 18 114/57 (76) 95 01/04/19 22:25 Room Air I&O- Last 24 Hours up to 6 AM 01/05/19 06:00 Intake Total 930 ml Output Total 0 ml Balance 930 ml Laboratory Data 24H LABS Laboratory Tests 2 01/04/19 22:01: Bedside Glucose (Misc Panel) 313H 01/05/19 06:41: Nucleated Red Blood Cells % (auto) 0.0, Anion Gap 6L, Glomerular Filtration Rate > 60.0, Blood Urea Nitrogen 15, Creatinine 0.88, Sodium Level 138, Potassium Level 3.7, Chloride Level 105, Carbon Dioxide Level 27, Calcium Level 8.3L 01/05/19 07:16: Erythrocyte Sedimentation Rate 57H, Prothrombin Time 15.1H, Prothromb Time International Ratio 1.17, C-Reactive Protein, Quantitative 9.42H 01/05/19 12:15: Bedside Glucose (Misc Panel) 308H 01/05/19 16:55: 01/05/19 17:02: Bedside Glucose (Misc Panel) 207H CBC/BMP Laboratory Tests 01/05/19 06:41 Red Blood Count 4.03, Mean Corpuscular Volume 87.1, Mean Corpuscular Hemoglobin 28.5, Mean Corpuscular Hemoglobin Concent 32.8, Red Cell Distribution Width 13.9, Calcium Level 8.3 L Microbiology Microbiology 01/04/19 Blood Culture - Preliminary, Resulted No growth after 24 hours . All specim... 01/04/19 Blood Culture - Preliminary, Resulted No growth after 24 hours . All specim... 01/04/19 Wound Culture, Received Pending 01/04/19 Gram Stain - Final, Resulted 01/04/19 Wound Culture, Resulted Pending ALEJO OH MD Jan 05, 2019 17:50
[2019-01-05] MEDS ORDERED: fentaNYL 100 MCG/2 ML INJECTION (J3010) As Ordered ONE (18:07)
[2019-01-05] MEDS ORDERED: PROPOFOL 200 MG/20 ML VIAL As Ordered ONE (18:07)
[2019-01-05] MEDS ORDERED: LIDOCAINE 2% INJ 100 MG/5 ML SDV (FOR ANES.) As Ordered ONE (18:07)
[2019-01-05] MEDS ORDERED: MIDAZOLAM INJ 2 MG/2 ML VIAL (J2250) As Ordered ONE (18:07)
[2019-01-05] MEDS ORDERED: ONDANSETRON 4MG/2ML VIAL (J2405) IV PRN (19:00)
[2019-01-05] MEDS ORDERED: LR 1,000 ML IV SCH (19:00)
[2019-01-05] MEDS ORDERED: NORCO, ANEXSIA 5/325MG TABLET (HYDROcodone/ACETAMINOPHEN) PO PRN (19:00)
[2019-01-05] MEDS ORDERED: NORCO, ANEXSIA 5/325MG TABLET (HYDROcodone/ACETAMINOPHEN) As Ordered ONE (19:00)
--- NOTE | 2019-01-05 19:40 | REP ---
HISTORY: Status post amputation of the fourth digit and portion of the fourth metatarsal. Chronic changes seen throughout the foot. There has been amputation of the mid and distal components of the fourth metatarsal including all of the digit. Pledgets are seen in the soft tissue bed. IMPRESSION: Postop. Electronically Signed by Robert Chacon DO 01/05/2019 08:26 P
[2019-01-05] MEDS: ATORVASTATIN 20 MG TAB PO SCH (21:27)
[2019-01-05] MEDS: NORCO, ANEXSIA 5/325MG TABLET (HYDROcodone/ACETAMINOPHEN) PO PRN (23:02)
[2019-01-06] VITALS (7 sets, daily range): BP systolic 111–131; BP diastolic 56–73
[2019-01-06] MEDS: VANCOMYCIN HCL 1,000 MG, VIAL MATE ADAPTER 1 EACH in D5W 250 ML IV SCH ×3 (02:42→17:17)
[2019-01-06] MEDS: NORCO, ANEXSIA 5/325MG TABLET (HYDROcodone/ACETAMINOPHEN) PO PRN ×4 (02:54→19:58)
[2019-01-06] MEDS: PIPERACILLIN/TAZOBACTAM SOD 3.375 GM in D5W MINI-BAG PLUS 50 ML IV SCH ×4 (04:45→21:58)
[2019-01-06 08:06] LABS: HEMATOCRIT 35.2 % (36.0-47.0); HEMOGLOBIN 11.7 g/dl (12.0-15.5); MEAN CORPUSCULAR HEMOGLOBIN 28.5 pg (27.0-33.0); MEAN CORPUSCULAR HGB CONC 33.2 g/dl (32.0-36.5); MEAN CORPUSCULAR VOLUME 85.9 fl (80.0-96.0); PLATELET COUNT, AUTOMATED 274 10^3/uL (150-450); WHITE BLOOD COUNT 7.1 10^3/uL (4.0-10.0)
[2019-01-06 08:34] LABS: BLOOD UREA NITROGEN 12 MG/DL (7-18); C REACTIVE PROTEIN QUANTITATIV 3.96 MG/DL (0.00-0.30); CALCIUM LEVEL 8.1 MG/DL (8.5-10.1); CARBON DIOXIDE LEVEL 24 MEQ/L (21-32); CHLORIDE LEVEL 104 MEQ/L (98-107); GLOMERULAR FILTRATION RATE > 60.0 (>58); GLUCOSE, FASTING 299 MG/DL (70-100); POTASSIUM SERUM 4.2 MEQ/L (3.5-5.1); SODIUM LEVEL 136 MEQ/L (136-145)
[2019-01-06 08:36] LABS: ERYTHROCYTE SEDIMENTATION RATE 54 mm/hr (0-20)
[2019-01-06] MEDS: HumaLOG INSULIN (NovoLOG) PER UNIT SC SCH ×4 (09:05→21:01)
[2019-01-06] MEDS: LISINOPRIL 20 MG TAB PO SCH (09:06)
--- NOTE | 2019-01-06 09:33 | RO ---
DATE OF PROCEDURE: 01/05/2019 PREOPERATIVE DIAGNOSIS: Osteomyelitis 4th metatarsal and 4th toe right foot. POSTOPERATIVE DIAGNOSIS: Osteomyelitis 4th metatarsal and 4th toe right foot. SURGERY PERFORMED: 4th ray amputation right foot. SURGEON: Bentley Carroll DPM DIVERSIFIED CROPS I FARMWORKER: None. ANESTHESIA: Local monitored anesthesia care (MAC). IRRIGATION: Dilute vancomycin solution, 3 liters, low pressure pulse lavage system. HEMOSTASIS: None. ESTIMATED BLOOD LOSS: 50 mL. IMPLANTS: 25 mm tobramycin impregnated beads with packing with 1/2-inch iodoform gauze. DESCRIPTION OF OPERATION: On 01/05/2019, this 48-year-old white female was taken from her hospital room to the operating room and placed on the operating table in supine position. Following induction of IV sedation and local and regional anesthesia, the right lower extremity was prepped and draped in the usual aseptic manner. Attention was directed to the patient's right foot. There was noted to be an ulcer on the plantar surface of the foot. A teardrop shaped incision was placed centered around the 4th toe and dissection was carried down to bone. All bleeders as encountered were coagulated. Utilizing Hohmann retractors, the 4th metatarsal shaft was exposed and an osteotomy was performed through the 4th metatarsal shaft. The bone at that level was noted to be firm, displaying no signs of osteomyelitis. The bone was then removed and sent to micro bacteriology for aerobic and anaerobic cultures. The wound was flushed with 3 liters of dilute gentamicin solution. Any remaining bleeders were electrocoagulated and tobramycin beads, approximately 25 mm beads, were placed into the wound with iodoform gauze. A sterile dressing was applied consisting of 4 x 4's, ABD and Kerlix followed by Coban. The patient apparently having tolerated the surgical procedure well was taken from the OR to the recovery room for further monitoring by the anesthesia department.
--- NOTE | 2019-01-06 12:57 | IPNPDOC ---
Date Seen The patient was seen on 01/06/19. Progress Note SUBJECTIVE: Patient tells me that she is feeling well she has no complaints OBJECTIVE PHYSICAL EXAMINATION: VITAL SIGNS: Please see below. GENERAL: Pleasant middle-aged female obese sitting up in bed she does not appear to be in any acute distress HEENT:. Symmetric cranial nerves II through XII grossly intact she is wearing glasses CARDIOVASCULAR: S1-S2 regular. RESPIRATORY: Clear to auscultation bilaterally. ABDOMINAL: Obese bowel sounds present abdomen soft and nontender EXTREMITIES: The right lower extremity dressing is clean dry and intact LABORATORY DATA, IMAGING STUDIES, MICROBIOLOGY: Please see below. DVT prophylaxis ordered?: Teds and sequentials ASSESSMENT AND PLAN: This is a 48-year-old female with osteomyelitis and abscess of her diabetic foot. PROBLEMS: 1. Osteomyelitis of the fourth metatarsal and fourth proximal phalanx on the right foot as well as associated abscess: Podiatry help greatly appreciated she is status post debridement yesterday tolerated procedure well. At this time we'll continue with empiric broad-spectrum antibiotics and narrow as culture data returns. I'll have her work with physical therapy. Pain control 2. Diabetes with significant neuropathy: She is on sliding scale insulin. 3. Dyslipidemia: She continued on atorvastatin. 4. Hypertension: Controlled, She continued on lisinopril DISPOSITION: Pending in PT and culture data VS, I&O, 24H, [facility] Vital Signs/I&O Vital Signs Date Time Temp Pulse Resp B/P (MAP) Pulse Ox O2 Delivery O2 Flow Rate FiO2 01/06/19 09:06 123/65 01/06/19 08:44 18 01/06/19 08:00 97.3 77 97 01/05/19 19:07 2 01/04/19 22:25 Room Air I&O- Last 24 Hours up to 6 AM 01/06/19 06:00 Intake Total 1950 ml Output Total 1400 ml Balance 550 ml Laboratory Data 24H LABS Laboratory Tests 2 01/05/19 16:55: Vancomycin Level Trough 14.3 01/05/19 17:02: Bedside Glucose (Misc Panel) 207H 01/05/19 20:33: Bedside Glucose (Misc Panel) 216H 01/06/19 07:45: Nucleated Red Blood Cells % (auto) 0.0, Erythrocyte Sedimentation Rate 54H, Anion Gap 8, Glomerular Filtration Rate > 60.0, Blood Urea Nitrogen 12, Creatinine 0.80, Sodium Level 136, Potassium Level 4.2, Chloride Level 104, Carbon Dioxide Level 24, Calcium Level 8.1L, C-Reactive Protein, Quantitative 3.96H 01/06/19 12:10: Bedside Glucose (Misc Panel) 314H CBC/BMP Laboratory Tests 01/06/19 07:45 Red Blood Count 4.10, Mean Corpuscular Volume 85.9, Mean Corpuscular Hemoglobin 28.5, Mean Corpuscular Hemoglobin Concent 33.2, Red Cell Distribution Width 13.6, Calcium Level 8.1 L Microbiology Microbiology 01/04/19 Blood Culture - Preliminary, Resulted No growth after 24 hours . All specim... 01/04/19 Blood Culture - Preliminary, Resulted No growth after 24 hours . All specim... 01/05/19 Gram Stain, Received Pending 01/05/19 Wound Culture, Received Pending 01/05/19 Anaerobic Culture, Received Pending 01/04/19 Wound Culture - Preliminary, Resulted Staphylococcus Aureus Staphylococcus Sp Coag Neg 01/04/19 Gram Stain - Final, Complete 01/04/19 Wound Culture - Final, Complete Staph.aureus Methicillin Resis ALEJO OH MD Jan 06, 2019 12:57
[2019-01-06] MEDS: ATORVASTATIN 20 MG TAB PO SCH (20:59)
[2019-01-07] VITALS: BP 124/61
[2019-01-07] MEDS: VANCOMYCIN HCL 1,000 MG, VIAL MATE ADAPTER 1 EACH in D5W 250 ML IV SCH ×3 (02:25→18:00)
[2019-01-07] MEDS: NORCO, ANEXSIA 5/325MG TABLET (HYDROcodone/ACETAMINOPHEN) PO PRN ×4 (02:32→19:45)
[2019-01-07 04:00] VITALS: BP 123/69
[2019-01-07] MEDS: PIPERACILLIN/TAZOBACTAM SOD 3.375 GM in D5W MINI-BAG PLUS 50 ML IV SCH ×4 (04:25→21:50)
[2019-01-07] MEDS: ACETAMINOPHEN TAB 650MG DOSE (2X325MG) PO PRN ×2 (04:33→16:42)
[2019-01-07 07:15] LABS: HEMATOCRIT 34.1 % (36.0-47.0); MEAN CORPUSCULAR HEMOGLOBIN 28.3 pg (27.0-33.0); MEAN CORPUSCULAR HGB CONC 32.3 g/dl (32.0-36.5); MEAN CORPUSCULAR VOLUME 87.7 fl (80.0-96.0); PLATELET COUNT, AUTOMATED 240 10^3/uL (150-450); RED BLOOD COUNT 3.89 10^6/uL (4.00-5.40); WHITE BLOOD COUNT 6.2 10^3/uL (4.0-10.0)
[2019-01-07 07:32] LABS: CALCIUM LEVEL 8.3 MG/DL (8.5-10.1); CREATININE FOR GFR 1.11 MG/DL (0.55-1.30); GLOMERULAR FILTRATION RATE 55.8 (>58); POTASSIUM SERUM 3.9 MEQ/L (3.5-5.1)
[2019-01-07] MEDS: LISINOPRIL 20 MG TAB PO SCH (08:25)
[2019-01-07 08:30] VITALS: BP 131/82
[2019-01-07] MEDS: HumaLOG INSULIN (NovoLOG) PER UNIT SC SCH ×4 (08:50→19:55)
--- NOTE | 2019-01-07 09:51 | PHACANCOPD ---
PHARMACY VANCOMYCIN DOSING Pt Demographics Demographics Patient Age:48 , Weight:86.800 , Gender: female Adjusted Body Weight Date: 01/05/19, Adjusted Body Weight: [64.2] Kg Vancomycin Vancomycin indication: OSTEOMYELITIS Vancomycin Target Ranges: 10-20 mcg/ml Vancomycin Load Y/N: No Load Dose Date Time Vancomycin Load Dose: Date: Time: Vancomycin Dose Date: 01/05/19. Current Vancomycin Dose: [1 GM IV Q8H] Intermittent Dosing?: No Labs Micro Microbiology 01/04/19 Blood Culture - Preliminary, Resulted No Growth after 48 hours. All Specime... 01/04/19 Blood Culture - Preliminary, Resulted No Growth after 48 hours. All Specime... 01/05/19 Gram Stain - Final, Resulted 01/05/19 Wound Culture, Resulted Pending 01/05/19 Anaerobic Culture, Resulted Pending 01/04/19 Wound Culture - Preliminary, Resulted Staph.aureus Methicillin Resis Staphylococcus Sp Coag Neg 01/04/19 Gram Stain - Final, Complete 01/04/19 Wound Culture - Final, Complete Staph.aureus Methicillin Resis Creatinine Clearance Date:01/05/19. Creatinine Clearance: [92.9].CALCULATED Pending Labs Vancomycin trough due 01/05@1700 Assessment and Plan Maintaining Current Dose?: Yes Reason for dose change: No Dose Change Pharmacist Note Pharmacist Note 01/07/19: Vancomycin trough today resulted at 16.9mcg/ml. The patient is being treated for MRSA Osteomyelitis (WILLIAM <0.5) of the fourth metatarsal and fourth proximal phalanx on the right foot as well as associated abscess. The patient is status post debridement on 01/05/19 and tolerated procedure well. Scr is elevated at 1.11 today from 0.8 yesterday. We will continue the patient on her current regimen of 1g IV Q8H, and continue to monitor her scr. We will draw further trough levels accordingly. Date: 01/05/19. Pharmacist note:[id number] W/ Diabetic ulcer/SSSI/ r/o osteomyelitis. Receiving Pip/Tazo 3.375 IV Q6h plus Vancomycin per Pharmacy consult. Vanco 1 gram in ED @1999, then will continue with Vancomycin 1 gram IV [id number] to begin 01/05@0200. First trough is schjeduled for 01/05 1700(prior to the 4th dose) Pharmacy will continue to follow. LIEN KAHN PHARMACY Jan 07, 2019 09:51
--- NOTE | 2019-01-07 12:31 | IPNPDOC ---
Date Seen The patient was seen on 01/07/19. Progress Note SUBJECTIVE: Patient tells me that she is feeling well OBJECTIVE PHYSICAL EXAMINATION: VITAL SIGNS: Please see below. GENERAL: Pleasant middle-aged female obese sitting up in bed she does not appear to be in any distress HEENT:. Symmetric cranial nerves II through XII grossly intact she is wearing glasses CARDIOVASCULAR: S1-S2 regular. RESPIRATORY: Clear to auscultation ABDOMINAL: Obese bowel sounds present abdomen soft EXTREMITIES: The right lower extremity dressing is clean dry and intact LABORATORY DATA, IMAGING STUDIES, MICROBIOLOGY: Please see below. DVT prophylaxis ordered?: Teds and sequentials ASSESSMENT AND PLAN: This is a 48-year-old female with osteomyelitis and abscess of her diabetic foot. PROBLEMS: 1. Osteomyelitis of the fourth metatarsal and fourth proximal phalanx on the right foot as well as associated abscess: Podiatry help greatly appreciated she is status post amputation and tolerated procedure well. At this time we'll continue with empiric broad-spectrum antibiotics and narrow as culture data returns. She has been cleared by PT, she is getting adequate pain control. She still has an open wound and is curious about the plan regarding that, I did defer to Dr. Carroll 2. Diabetes with significant neuropathy: She is on sliding scale insulin. Will add long acting levemir qhs she has had some hyperglycemia likely related to infection 3. Dyslipidemia: She continued on atorvastatin. 4. Hypertension: Controlled, She continued on lisinopril DISPOSITION: Pending culture data and wound recs VS, I&O, 24H, Fishbone Vital Signs/I&O Vital Signs Date Time Temp Pulse Resp B/P (MAP) Pulse Ox O2 Delivery O2 Flow Rate FiO2 01/07/19 08:56 18 01/07/19 08:30 97.9 80 131/82 (98) 98 01/05/19 19:07 2 01/04/19 22:25 Room Air I&O- Last 24 Hours up to 6 AM 01/07/19 06:00 Intake Total 2210 ml Output Total 2200 ml Balance 10 ml Laboratory Data 24H LABS Laboratory Tests 2 01/06/19 20:37: Bedside Glucose (Misc Panel) 335H 01/07/19 06:53: Nucleated Red Blood Cells % (auto) 0.0, Anion Gap 11, Glomerular Filtration Rate 55.8L, Blood Urea Nitrogen 12, Creatinine 1.11, Sodium Level 137, Potassium Level 3.9, Chloride Level 104, Carbon Dioxide Level 22, Calcium Level 8.3L 01/07/19 08:31: Vancomycin Level Trough 16.9 CBC/BMP Laboratory Tests 01/07/19 06:53 Red Blood Count 3.89 L, Mean Corpuscular Volume 87.7, Mean Corpuscular Hemoglobin 28.3, Mean Corpuscular Hemoglobin Concent 32.3, Red Cell Distribution Width 13.5, Calcium Level 8.3 L Microbiology Microbiology 01/04/19 Blood Culture - Preliminary, Resulted No Growth after 48 hours. All Specime... 01/04/19 Blood Culture - Preliminary, Resulted No Growth after 48 hours. All Specime... 01/05/19 Gram Stain - Final, Resulted 01/05/19 Wound Culture, Resulted Pending 01/05/19 Anaerobic Culture, Resulted Pending 01/04/19 Wound Culture - Preliminary, Resulted Staph.aureus Methicillin Resis Corynebacterium Species 01/04/19 Gram Stain - Final, Complete 01/04/19 Wound Culture - Final, Complete Staph.aureus Methicillin Resis ALEJO OH MD Jan 07, 2019 12:31
[2019-01-07 13:00] VITALS: BP 136/67
[2019-01-07 16:00] VITALS: BP 140/85
--- NOTE | 2019-01-07 16:33 | IPN ---
DATE: 01/07/2019 at 4:24 p.m. CHIEF COMPLAINT: Patient seen for evaluation of right foot wound. She had osteomyelitis of the 4th ray, which was surgically removed with a 4th ray amputation. The wound was packed the tobramycin-impregnated beads with 1/2-inch iodoform gauze. She has been on vancomycin. She states she is feeling well. Denies shortness of breath or chest pain. Just complains of an ache in her foot at the surgical site. Laboratory studies were reviewed, revealing white count 6.2. ESR was 54 on January 06, and the C-reactive protein on January 06 was 3.96. Microbacteriology revealed methicillin-resistant Staphylococcus aureus that is sensitive to Bactrim, vancomycin, and clindamycin as well as tetracycline and gentamicin. The bandages were removed today. The packing was removed; however, as many of the beads were left in as possible, and the wound was scrubbed with a gauze sponge. A dry sterile dressing was reapplied after the wound was repacked with 1/2-inch iodoform gauze. Patient will be nothing by mouth after breakfast on Thursday and scheduled for delayed primary closure with debridement to muscle. Patient's questions were answered.
[2019-01-07] MEDS: ATORVASTATIN 20 MG TAB PO SCH (19:46)
[2019-01-07] MEDS: LEVEMIR (INSULIN DETEMIR) 1 UNITS/0.01ML SC SCH (19:55)
[2019-01-07 20:00] VITALS: BP 126/70
[2019-01-08] VITALS: BP 129/73
[2019-01-08] MEDS: NORCO, ANEXSIA 5/325MG TABLET (HYDROcodone/ACETAMINOPHEN) PO PRN ×5 (00:32→20:36)
[2019-01-08] MEDS: VANCOMYCIN HCL 1,000 MG, VIAL MATE ADAPTER 1 EACH in D5W 250 ML IV SCH ×3 (01:23→17:45)
[2019-01-08 04:00] VITALS: BP 131/85
[2019-01-08] MEDS: PIPERACILLIN/TAZOBACTAM SOD 3.375 GM in D5W MINI-BAG PLUS 50 ML IV SCH ×4 (04:59→20:37)
[2019-01-08 07:09] LABS: HEMATOCRIT 35.5 % (36.0-47.0); HEMOGLOBIN 11.5 g/dl (12.0-15.5); MEAN CORPUSCULAR HEMOGLOBIN 28.3 pg (27.0-33.0); MEAN CORPUSCULAR HGB CONC 32.4 g/dl (32.0-36.5); MEAN CORPUSCULAR VOLUME 87.4 fl (80.0-96.0); PLATELET COUNT, AUTOMATED 266 10^3/uL (150-450); RED BLOOD COUNT 4.06 10^6/uL (4.00-5.40); WHITE BLOOD COUNT 6.2 10^3/uL (4.0-10.0)
[2019-01-08 07:30] LABS: BLOOD UREA NITROGEN 10 MG/DL (7-18); CALCIUM LEVEL 8.4 MG/DL (8.5-10.1); CARBON DIOXIDE LEVEL 26 MEQ/L (21-32); CHLORIDE LEVEL 104 MEQ/L (98-107); GLOMERULAR FILTRATION RATE > 60.0 (>58); GLUCOSE, FASTING 297 MG/DL (70-100); POTASSIUM SERUM 4.4 MEQ/L (3.5-5.1); SODIUM LEVEL 137 MEQ/L (136-145)
[2019-01-08 08:00] VITALS: BP 112/63
[2019-01-08] MEDS: LISINOPRIL 20 MG TAB PO SCH (08:39)
[2019-01-08] MEDS: HumaLOG INSULIN (NovoLOG) PER UNIT SC SCH ×4 (08:40→20:40)
[2019-01-08 12:00] VITALS: BP 118/66
--- NOTE | 2019-01-08 14:11 | IPNPDOC ---
Date Seen The patient was seen on 01/08/19. Progress Note SUBJECTIVE: Patient tells me that she is feeling well no complaints today OBJECTIVE PHYSICAL EXAMINATION: VITAL SIGNS: Please see below. GENERAL: Pleasant middle-aged female obese sitting up in bed she appears comfortable HEENT: Face is symmetric Symmetric cranial nerves II through XII grossly intact she is wearing glasses CARDIOVASCULAR: S1-S2 regular. RESPIRATORY: Clear to auscultation ABDOMINAL: Obese bowel sounds present abdomen soft EXTREMITIES: The right lower extremity dressing is clean dry and intact LABORATORY DATA, IMAGING STUDIES, MICROBIOLOGY: Please see below. DVT prophylaxis ordered?: Teds and sequentials ASSESSMENT AND PLAN: This is a 48-year-old female with osteomyelitis and abscess of her diabetic foot. PROBLEMS: 1. Osteomyelitis of the fourth metatarsal and fourth proximal phalanx on the right foot as well as associated abscess: Podiatry help greatly appreciated she is status post amputation and tolerated procedure well. At this time we'll marlo nue with empiric broad-spectrum antibiotics and narrow as culture data returns. She has been cleared by PT, she is getting adequate pain control. Plan is for her to return to the operating room on Thursday for delayed closure 2. Diabetes with significant neuropathy: She is on sliding scale insulin and long acting levemir qhs, she has had some hyperglycemia likely related to infection 3. Dyslipidemia: She continued on atorvastatin. 4. Hypertension: Controlled, She is continued on lisinopril DISPOSITION: Pending wound closure on Thursday and culture data VS[facility]&O Vital Signs Date Time Temp Pulse Resp B/P (MAP) Pulse Ox O2 Delivery O2 Flow Rate FiO2 01/08/19 12:00 97.2 77 18 118/66 (83) 97 01/05/19 19:07 2 01/04/19 22:25 Room Air I&O- Last 24 Hours up to 6 AM 01/08/19 06:00 Intake Total 2360 ml Output Total 2750 ml Balance -390 ml Laboratory Data 24H LABS Laboratory Tests 2 01/07/19 17:59: Bedside Glucose (Misc Panel) 324H 01/07/19 19:48: Bedside Glucose (Misc Panel) 329H 01/08/19 06:51: Nucleated Red Blood Cells % (auto) 0.0, Anion Gap 7L, Glomerular Filtration Rate > 60.0, Blood Urea Nitrogen 10, Creatinine 0.80, Sodium Level 137, Potassium Level 4.4, Chloride Level 104, Carbon Dioxide Level 26, Calcium Level 8.4L 01/08/19 12:07: Bedside Glucose (Misc Panel) 324H CBC/BMP Laboratory Tests 01/08/19 06:51 Red Blood Count 4.06, Mean Corpuscular Volume 87.4, Mean Corpuscular Hemoglobin 28.3, Mean Corpuscular Hemoglobin Concent 32.4, Red Cell Distribution Width 13.4, Calcium Level 8.4 L Microbiology Microbiology 01/04/19 Blood Culture - Preliminary, Resulted No Growth after 72 hours. All specime... 01/04/19 Blood Culture - Preliminary, Resulted No Growth after 72 hours. All specime... 01/05/19 Gram Stain - Final, Resulted 01/05/19 Wound Culture - Preliminary, Resulted Staphylococcus Aureus Corynebacterium Species 01/05/19 Anaerobic Culture - Final, Resulted 01/04/19 Wound Culture - Final, Complete Staph.aureus Methicillin Resis Corynebacterium Species 01/04/19 Gram Stain - Final, Complete 01/04/19 Wound Culture - Final, Complete Staph.aureus Methicillin Resis LAEJO OH MD Jan 08, 2019 14:11
[2019-01-08 16:00] VITALS: BP 135/76
[2019-01-08 20:00] VITALS: BP 132/64
[2019-01-08] MEDS: ATORVASTATIN 20 MG TAB PO SCH (20:35)
[2019-01-08] MEDS: LEVEMIR (INSULIN DETEMIR) 1 UNITS/0.01ML SC SCH (20:40)
[2019-01-09] MEDS: VANCOMYCIN HCL 1,000 MG, VIAL MATE ADAPTER 1 EACH in D5W 250 ML IV SCH ×3 (00:39→17:52)
[2019-01-09] MEDS: NORCO, ANEXSIA 5/325MG TABLET (HYDROcodone/ACETAMINOPHEN) PO PRN ×5 (00:43→21:10)
[2019-01-09 00:46] VITALS: BP 133/70
[2019-01-09] MEDS: PIPERACILLIN/TAZOBACTAM SOD 3.375 GM in D5W MINI-BAG PLUS 50 ML IV SCH ×4 (03:09→21:11)
[2019-01-09 04:00] VITALS: BP 130/68
[2019-01-09 06:41] LABS: HEMATOCRIT 33.8 % (36.0-47.0); HEMOGLOBIN 11.1 g/dl (12.0-15.5); MEAN CORPUSCULAR HEMOGLOBIN 28.3 pg (27.0-33.0); MEAN CORPUSCULAR HGB CONC 32.8 g/dl (32.0-36.5); MEAN CORPUSCULAR VOLUME 86.2 fl (80.0-96.0); PLATELET COUNT, AUTOMATED 272 10^3/uL (150-450); RED BLOOD COUNT 3.92 10^6/uL (4.00-5.40); WHITE BLOOD COUNT 6.7 10^3/uL (4.0-10.0)
[2019-01-09 07:07] LABS: CALCIUM LEVEL 8.5 MG/DL (8.5-10.1); CREATININE FOR GFR 1.14 MG/DL (0.55-1.30); GLOMERULAR FILTRATION RATE 54.2 (>58); POTASSIUM SERUM 4.1 MEQ/L (3.5-5.1)
[2019-01-09 08:00] VITALS: BP 125/61
[2019-01-09] MEDS: LISINOPRIL 20 MG TAB PO SCH (08:12)
[2019-01-09] MEDS: HumaLOG INSULIN (NovoLOG) PER UNIT SC SCH ×4 (08:12→21:15)
[2019-01-09 12:10] VITALS: BP 132/74
--- NOTE | 2019-01-09 13:40 | IPNPDOC ---
Date Seen The patient was seen on 01/09/19. Progress Note SUBJECTIVE: Patient tells me that she is feeling well OBJECTIVE PHYSICAL EXAMINATION: VITAL SIGNS: Please see below. GENERAL: Pleasant middle-aged female obese sitting up in bed she a ppears comfortable no acute distress HEENT: Face is symmetric Symmetric cranial nerves II through XII grossly intact she is wearing glasses CARDIOVASCULAR: S1-S2 regular. RESPIRATORY: Clear to auscultation ABDOMINAL: Obese bowel sounds present abdomen soft EXTREMITIES: The right lower extremity dressing is clean dry and intact LABORATORY DATA, IMAGING STUDIES, MICROBIOLOGY: Please see below. DVT prophylaxis ordered?: Teds and sequentials ASSESSMENT AND PLAN: This is a 48-year-old female with osteomyelitis and abscess of her diabetic foot. PROBLEMS: 1. Osteomyelitis of the fourth metatarsal and fourth proximal phalanx on the right foot as well as associated abscess: Podiatry help greatly appreciated she is status post amputation and tolerated procedure well. At this time we'll continue with empiric broad-spectrum antibiotics and narrow as culture data returns. She has been cleared by PT, she is getting adequate pain control. Plan is for her to return to the operating room on Thursday for delayed closure will consider infectious disease consultation tomorrow when available regarding corynebacterium 2. Diabetes with significant neuropathy: She is on sliding scale insulin and lilia g acting levemir qhs, she has had some hyperglycemia likely related to infection 3. Dyslipidemia: She continued on atorvastatin. 4. Hypertension: Controlled, She is continued on lisinopril DISPOSITION: Pending wound closure on Thursday and culture data VS, [facility]&O[facility] Vital Signs/I&O Vital Signs Date Time Temp Pulse Resp B/P (MAP) Pulse Ox O2 Delivery O2 Flow Rate FiO2 01/09/19 12:23 18 01/09/19 12:10 96.7 71 132/74 (93) 98 01/05/19 19:07 2 01/04/19 22:25 Room Air I&O- Last 24 Hours up to 6 AM 01/09/19 06:00 Intake Total 3200 ml Output Total 1800 ml Balance 1400 ml Laboratory Data 24H LABS Laboratory Tests 2 01/08/19 17:15: Bedside Glucose (Misc Panel) 389H 01/08/19 20:39: Bedside Glucose (Misc Panel) 305H 01/09/19 06:26: Nucleated Red Blood Cells % (auto) 0.0, Anion Gap 6L, Glomerular Filtration Rate 54.2L, Blood Urea Nitrogen 13, Creatinine 1.14, Sodium Level 136, Potassium Level 4.1, Chloride Level 103, Carbon Dioxide Level 27, Calcium Level 8.5 01/09/19 08:39: Vancomycin Level Trough 16.9 01/09/19 12:03: Bedside Glucose (Misc Panel) 292H CBC/BMP Laboratory Tests 01/09/19 06:26 Red Blood Count 3.92 L, Mean Corpuscular Volume 86.2, Mean Corpuscular Hemoglobin 28.3, Mean Corpuscular Hemoglobin Concent 32.8, Red Cell Distribution Width 13.4, Calcium Level 8.5 Microbiology Microbiology 01/04/19 Blood Culture - Preliminary, Resulted No Growth after 72 hours. All specime... 01/04/19 Blood Culture - Preliminary, Resulted No Growth after 72 hours. All specime... 01/05/19 Gram Stain - Final, Complete 01/05/19 Wound Culture - Final, Complete Staphylococcus Aureus Corynebacterium Species 01/05/19 Anaerobic Culture - Final, Complete 01/04/19 Wound Culture - Final, Complete Staph.aureus Methicillin Resis Corynebacterium Species 01/04/19 Gram Stain - Final, Complete 01/04/19 Wound Culture - Final, Complete Staph.aureus Methicillin Resis ALEJO OH MD Jan 09, 2019 13:40
[2019-01-09 16:40] VITALS: BP 152/81
[2019-01-09 20:00] VITALS: BP 144/70
[2019-01-09] MEDS: ATORVASTATIN 20 MG TAB PO SCH (21:10)
[2019-01-09] MEDS: LEVEMIR (INSULIN DETEMIR) 1 UNITS/0.01ML SC SCH (21:11)
[2019-01-10] VITALS (13 sets, daily range): BP systolic 94–153; BP diastolic 40–88
[2019-01-10] MEDS: VANCOMYCIN HCL 1,000 MG, VIAL MATE ADAPTER 1 EACH in D5W 250 ML IV SCH ×3 (01:12→18:00)
[2019-01-10] MEDS: NORCO, ANEXSIA 5/325MG TABLET (HYDROcodone/ACETAMINOPHEN) PO PRN ×4 (01:14→22:07)
[2019-01-10] MEDS: PIPERACILLIN/TAZOBACTAM SOD 3.375 GM in D5W MINI-BAG PLUS 50 ML IV SCH ×4 (03:17→21:51)
[2019-01-10] MEDS ORDERED: NS 500 ML IV ONE (05:00)
[2019-01-10 06:34] LABS: HEMATOCRIT 34.1 % (36.0-47.0); MEAN CORPUSCULAR HEMOGLOBIN 28.1 pg (27.0-33.0); MEAN CORPUSCULAR HGB CONC 32.3 g/dl (32.0-36.5); MEAN CORPUSCULAR VOLUME 87.2 fl (80.0-96.0); PLATELET COUNT, AUTOMATED 273 10^3/uL (150-450); RED BLOOD COUNT 3.91 10^6/uL (4.00-5.40); WHITE BLOOD COUNT 6.9 10^3/uL (4.0-10.0)
[2019-01-10 07:01] LABS: BLOOD UREA NITROGEN 13 MG/DL (7-18); C REACTIVE PROTEIN QUANTITATIV 0.69 MG/DL (0.00-0.30); CALCIUM LEVEL 8.2 MG/DL (8.5-10.1); CARBON DIOXIDE LEVEL 28 MEQ/L (21-32); CHLORIDE LEVEL 105 MEQ/L (98-107); CREATININE FOR GFR 0.86 MG/DL (0.55-1.30); GLOMERULAR FILTRATION RATE > 60.0 (>58); GLUCOSE, FASTING 265 MG/DL (70-100); POTASSIUM SERUM 3.9 MEQ/L (3.5-5.1); SODIUM LEVEL 138 MEQ/L (136-145)
[2019-01-10 07:02] LABS: ERYTHROCYTE SEDIMENTATION RATE 35 mm/hr (0-20)
--- NOTE | 2019-01-10 08:56 | REP ---
Right foot series: Four views. History: Right foot abscess and osteo. Comparison study: January 05, 2019. Findings: The patient is status post multiple osteotomies and resections. The fourth toe has been amputated at the level of the distal metatarsal diaphysis. Only the base of the third metatarsal persists. The third middle and distal phalanges are intact. The distal portion of the proximal phalanx of the third digit is intact. There is evidence of old prior surgical deformity at the second metatarsophalangeal joint. There are antibiotic opaque pledgets in the soft tissues at the fourth digit amputation site in the forefoot with soft tissue irregularity and swelling. There is considerable bulbous soft tissue swelling in the ball of the foot region. No acute bony erosive change is seen. There is some periosteal reaction at the distal end of the amputated fourth metatarsal as before. Achilles and plantar calcaneal spurring is noted. Impression: Fewer opaque antibiotic pledgets. Persistent soft tissue swelling and irregularity in the soft tissues of the ball of the foot. Multiple osteotomies and amputations. Electronically Signed by Christian Uriostegui MD 01/10/2019 09:02 A
[2019-01-10] MEDS: LISINOPRIL 20 MG TAB PO SCH (09:32)
[2019-01-10] MEDS: HumaLOG INSULIN (NovoLOG) PER UNIT SC SCH ×4 (09:32→21:56)
--- NOTE | 2019-01-10 17:26 | IPNPDOC ---
Date Seen The patient was seen on 01/10/19. Progress Note SUBJECTIVE: Patient tells me that she is feeling well, she has no complaints today OBJECTIVE PHYSICAL EXAMINATION: VITAL SIGNS: Please see below. GENERAL: Pleasant middle-aged female obese sitting up in bed she appears comfortable HEENT: Face is symmetric Symmetric cranial nerves II through XII grossly intact CARDIOVASCULAR: S1-S2 regular. No additional heart sounds appreciated RESPIRATORY: Clear to auscultation ABDOMINAL: Obese bowel sounds present abdomen soft EXTREMITIES: The right lower extremity dressing is clean dry and intact LABORATORY DATA, IMAGING STUDIES, MICROBIOLOGY: Please see below. DVT prophylaxis ordered?: Teds and sequentials ASSESSMENT AND PLAN: This is a 48-year-old female with osteomyelitis and abscess of her diabetic foot. PROBLEMS: 1. Osteomyelitis of the fourth metatarsal and fourth proximal phalanx on the right foot as well as associated abscess: Podiatry help greatly appreciated she is status post amputation and tolerated procedure well. At this time we'll continue with empiric broad-spectrum antibiotics I did request infectious dise ase consultation today I suspect her MRSA could be treated by by mouth linezolid I'm unsure if we need to address her corynebacterium, it has grown consistently and her cultures during this visit will defer to infectious disease to help is greatly appreciated. The plan is for wound closure later today by Dr. Carroll 2. Diabetes with significant neuropathy: She is on sliding scale insulin and lo ng acting levemir qhs, she has had some hyperglycemia likely related to infection 3. Dyslipidemia: She continued on atorvastatin. 4. Hypertension: Controlled, She is continued on lisinopril DISPOSITION: Possibly home within the next 24-48 hours VS, I&O, 24H, [facility] Vital Signs/I&O Vital Signs Date Time Temp Pulse Resp B/P (MAP) Pulse Ox O2 Delivery O2 Flow Rate FiO2 01/10/19 16:00 97.5 76 18 148/82 (104) 98 01/05/19 19:07 2 01/04/19 22:25 Room Air I&O- Last 24 Hours up to 6 AM 01/10/19 06:00 Intake Total 3600 ml Output Total 2650 ml Balance 950 ml Laboratory Data 24H LABS Laboratory Tests 2 01/09/19 21:15: Bedside Glucose (Misc Panel) 329H 01/10/19 04:47: Bedside Glucose (Misc Panel) 309H 01/10/19 06:19: Nucleated Red Blood Cells % (auto) 0.0, Erythrocyte Sedimentation Rate 35H, Anion Gap 5L, Glomerular Filtration Rate > 60.0, Blood Urea Nitrogen 13, Creatinine 0.86, Sodium Level 138, Potassium Level 3.9, Chloride Level 105, Carbon Dioxide Level 28, Calcium Level 8.2L, C-Reactive Protein, Quantitative 0.69H 01/10/19 12:06: Bedside Glucose (Misc Panel) 322H 01/10/19 17:18: Bedside Glucose (Misc Panel) 187H CBC/BMP Laboratory Tests 01/10/19 06:19 Red Blood Count 3.91 L, Mean Corpuscular Volume 87.2, Mean Corpuscular Hemoglobin 28.1, Mean Corpuscular Hemoglobin Concent 32.3, Red Cell Distribution Width 13.4, Calcium Level 8.2 L Microbiology Microbiology 01/04/19 Blood Culture - Final, Complete NO GROWTH AFTER 5 DAYS 01/04/19 Blood Culture - Final, Complete NO GROWTH AFTER 5 DAYS 01/05/19 Gram Stain - Final, Complete 01/05/19 Wound Culture - Final, Complete Staphylococcus Aureus Corynebacterium Species 01/05/19 Anaerobic Culture - Final, Complete 01/04/19 Wound Culture - Final, Complete Staph.aureus Methicillin Resis Corynebacterium Species 01/04/19 Gram Stain - Final, Complete 01/04/19 Wound Culture - Final, Complete Staph.aureus Methicillin Resis ALEJO OH MD Jan 10, 2019 17:26
[2019-01-10] MEDS ORDERED: BUPIVACAINE HCL 0.5% 10 ML VIAL As Ordered ONE (18:06)
[2019-01-10] MEDS ORDERED: VANCOMYCIN HCL 500 MG/10 ML VIAL (J3370) As Ordered ONE (18:06)
[2019-01-10] MEDS ORDERED: LIDOCAINE 2% MDV 20 ML VIAL As Ordered ONE (18:06)
[2019-01-10] MEDS ORDERED: MIDAZOLAM INJ 2 MG/2 ML VIAL (J2250) As Ordered ONE (18:09)
[2019-01-10] MEDS ORDERED: fentaNYL 100 MCG/2 ML INJECTION (J3010) As Ordered ONE (18:10)
[2019-01-10] MEDS ORDERED: PROPOFOL 200 MG/20 ML VIAL As Ordered ONE (18:10)
[2019-01-10] MEDS ORDERED: LIDOCAINE 2% INJ 100 MG/5 ML SDV (FOR ANES.) As Ordered ONE (18:10)
[2019-01-10] MEDS ORDERED: ONDANSETRON 4MG/2ML VIAL (J2405) As Ordered ONE (18:39)
[2019-01-10] MEDS ORDERED: ONDANSETRON 4MG/2ML VIAL (J2405) IV PRN (19:30)
[2019-01-10] MEDS ORDERED: MORPHINE 10 MG/ML 1ML VIAL (J2270) IV PRN (19:30)
[2019-01-10] MEDS ORDERED: LR 1,000 ML IV SCH (19:30)
[2019-01-10] MEDS ORDERED: PERCOCET 5MG/325MG TAB PO PRN (19:30)
[2019-01-10] MEDS ORDERED: METOCLOPRAMIDE INJ 10MG/2ML VIAL (J2765) IV PRN (19:30)
--- NOTE | 2019-01-10 20:21 | REP ---
Clinical: Postoperative evaluation. Technique: AP, lateral, oblique views of the right foot. Comparison: 01/10/2019. Findings: Postoperative changes including elements of partial amputation involving the second through fourth toes again noted. Antibiotic pellets are identified in the soft tissues adjacent to the partial fourth metatarsal amputation. Overlying postsurgical changes and soft tissue swelling. Impression: Postoperative changes. Electronically Signed by Bob Garcia MD 01/10/2019 08:13 P
[2019-01-10] MEDS: ATORVASTATIN 20 MG TAB PO SCH (21:50)
[2019-01-10] MEDS: LEVEMIR (INSULIN DETEMIR) 1 UNITS/0.01ML SC SCH (22:05)
[2019-01-11 00:30] VITALS: BP 135/66
[2019-01-11] MEDS: VANCOMYCIN HCL 1,000 MG, VIAL MATE ADAPTER 1 EACH in D5W 250 ML IV SCH ×2 (02:59→09:27)
[2019-01-11] MEDS: NORCO, ANEXSIA 5/325MG TABLET (HYDROcodone/ACETAMINOPHEN) PO PRN ×5 (03:11→21:54)
[2019-01-11 04:00] VITALS: BP 133/80
[2019-01-11] MEDS: PIPERACILLIN/TAZOBACTAM SOD 3.375 GM in D5W MINI-BAG PLUS 50 ML IV SCH ×2 (04:59→09:27)
[2019-01-11 07:46] LABS: HEMATOCRIT 33.6 % (36.0-47.0); MEAN CORPUSCULAR HEMOGLOBIN 28.7 pg (27.0-33.0); MEAN CORPUSCULAR HGB CONC 32.7 g/dl (32.0-36.5); MEAN CORPUSCULAR VOLUME 87.7 fl (80.0-96.0); PLATELET COUNT, AUTOMATED 295 10^3/uL (150-450); RED BLOOD COUNT 3.83 10^6/uL (4.00-5.40); WHITE BLOOD COUNT 8.1 10^3/uL (4.0-10.0)
[2019-01-11 07:56] LABS: BLOOD UREA NITROGEN 10 MG/DL (7-18); C REACTIVE PROTEIN QUANTITATIV 0.64 MG/DL (0.00-0.30); CARBON DIOXIDE LEVEL 26 MEQ/L (21-32); CHLORIDE LEVEL 103 MEQ/L (98-107); GLOMERULAR FILTRATION RATE > 60.0 (>58); GLUCOSE, FASTING 279 MG/DL (70-100); SODIUM LEVEL 135 MEQ/L (136-145)
[2019-01-11 08:00] VITALS: BP 143/85
[2019-01-11 08:19] LABS: ERYTHROCYTE SEDIMENTATION RATE 34 mm/hr (0-20)
--- NOTE | 2019-01-11 09:23 | RO ---
DATE OF PROCEDURE: 01/10/2019 PREPROCEDURE DIAGNOSIS: Stage IV wound right foot. POSTPROCEDURE DIAGNOSIS: Stage IV wound right foot. PROCEDURE: Excisional debridement through bone including bone biopsy fourth ray right foot. SURGEON: Dr. Bentley Carroll DPM SWIMMING POOL INSTALLER: None. ANESTHESIA: Local MAC. IRRIGATION: Dilute gentamicin solution. DRAIN UTILIZED: TLS drain. ESTIMATED BLOOD LOSS: 10 mL. HEMOSTASIS UTILIZED: None. IMPLANTABLES: Six 5 mm vancomycin impregnated beads. DESCRIPTION OF OPERATION: On 01/10/2019, this 48-year old white female was taken from her hospital room to the operating room and placed on the operating table in supine position. Following induction of IV sedation, local and regional anesthesia, the right lower extremity was prepped in the usual aseptic manner. Attention was directed to the patient's right foot where there was noted to be a stage IV wound. X-rays taken this morning were reviewed revealing some periosteal bone reaction along the fourth metatarsal. No additional destruction was noted. The incision was slightly lengthened approximately 1 cm and incision debridement down to bone. The bone was mobilized from the surrounding soft tissue and utilizing a power saw, approximately 1 cm of bone was removed. This was sent for aerobic and anaerobic culture. Utilizing large curettes and a dermal curette, the wound was debrided to good granulation tissue. Utilizing 3 liters of dilute vancomycin solution, the wound was irrigated with a low pressure pulse lavage system. Six 5 mm beads were then placed into the wound with TLS drain in place over #3-0 Nylon simple interrupted sutures. Sterile dressing was applied consisting of Adaptic, 4x4 and Kerlix. Patient apparently having tolerated the procedure well was taken from the operating room to the recovery room for further monitoring by the anesthesia department.
[2019-01-11] MEDS: HumaLOG INSULIN (NovoLOG) PER UNIT SC SCH ×4 (09:28→21:38)
[2019-01-11] MEDS: LISINOPRIL 20 MG TAB PO SCH (09:30)
[2019-01-11 12:00] VITALS: BP 138/82
[2019-01-11] MEDS: ACETAMINOPHEN TAB 650MG DOSE (2X325MG) PO PRN ×2 (13:06→20:35)
[2019-01-11 16:00] VITALS: BP 136/71
--- NOTE | 2019-01-11 18:48 | IPNPDOC ---
Text Note Date of Service The patient was seen on 01/11/19. NOTE Subjective: Patient is a 48-year-old female with a PMHx of HTN, DLP, DM2, and history of right foot diabetic ulcer requiring I&D and secondary closure with Dr. Carroll during a hospital stay 11/27 - 12/07. Patient presented to the emergency room again with swelling of her right foot, associated with redness and warmth. Patient was admitted to hospitalist service for further evaluation and treatment. Dr. Carroll was called on consultation, along with Dr. Juan. Patient was seen and examined at the bedside. Patient denies chest pain, shortness of breath or palpitations. She denies nausea, vomiting, abdominal pain, constipation, diarrhea or discomfort with urination. Objective: Vitals (See below) General: Lying in bed, no acute distress, comfortable, AAOx3 HEENT: NC, AT CVS: RRR, +S1S2 Lungs: Fair air entry b/l, -w/r/r Abdomen: Soft, ND, NT Extremities: - Edema, - Calf tenderness, R foot in dressing Assessment and plan: Right foot osteomyelitis with 4th metatarsal & 4th proximal phalanx abscess - Patient is status post amputation with Dr. Carroll on 01/06 and excisional debridement including bone biopsy on 01/10 - Wound cultures have revealed MRSA and Corynebacterium species - Blood cultures 01/04: have been negative after 5 days - Pathology pending - Linezolid has been started; s/p Zosyn and Vancomycin (Antibiotic Day #7) - Dr. Carroll and Dr. Juan on consultation DM2 with Hyperglycemia and Neuropathy - c/w ISS and Levemir DLP - c/w Atorvastatin HTN - BP appears well controlled - c/w Lisinopril DVT prophylaxis - c/w SUDHIR and Sequentials VS,Fishbone, I+O VS, Fishbone, I+O Laboratory Tests 01/11/19 07:22 Red Blood Count 3.83 L, Mean Corpuscular Volume 87.7, Mean Corpuscular Hemoglobin 28.7, Mean Corpuscular Hemoglobin Concent 32.7, Red Cell Distribution Width 13.6, Calcium Level 8.0 L Vital Signs Date Time Temp Pulse Resp B/P (MAP) Pulse Ox O2 Delivery O2 Flow Rate FiO2 01/11/19 17:46 18 01/11/19 16:00 98.0 79 136/71 (92) 98 01/05/19 19:07 2 I&O- Last 24 Hours up to 6 AM 01/11/19 06:00 Intake Total 1550 ml Output Total 2510 ml Balance -960 ml UMM SAWYER MD Jan 11, 2019 18:48
[2019-01-11 20:00] VITALS: BP 156/69
[2019-01-11] MEDS: ATORVASTATIN 20 MG TAB PO SCH (20:35)
[2019-01-11] MEDS: LINEZOLID 600MG TABLET (ZYVOX) PO SCH (20:35)
[2019-01-11] MEDS: LEVEMIR (INSULIN DETEMIR) 1 UNITS/0.01ML SC SCH (21:37)
[2019-01-12] VITALS: BP 128/61
[2019-01-12 04:00] VITALS: BP 128/67
[2019-01-12] MEDS: NORCO, ANEXSIA 5/325MG TABLET (HYDROcodone/ACETAMINOPHEN) PO PRN ×3 (04:25→13:38)
[2019-01-12 07:31] LABS: HEMATOCRIT 35.6 % (36.0-47.0); HEMOGLOBIN 11.4 g/dl (12.0-15.5); MEAN CORPUSCULAR HEMOGLOBIN 27.7 pg (27.0-33.0); MEAN CORPUSCULAR VOLUME 86.6 fl (80.0-96.0); PLATELET COUNT, AUTOMATED 284 10^3/uL (150-450); RED BLOOD COUNT 4.11 10^6/uL (4.00-5.40); WHITE BLOOD COUNT 6.9 10^3/uL (4.0-10.0)
[2019-01-12 07:40] VITALS: BP 116/56
[2019-01-12 07:55] LABS: BLOOD UREA NITROGEN 11 MG/DL (7-18); C REACTIVE PROTEIN QUANTITATIV 0.63 MG/DL (0.00-0.30); CALCIUM LEVEL 8.5 MG/DL (8.5-10.1); CARBON DIOXIDE LEVEL 25 MEQ/L (21-32); CHLORIDE LEVEL 106 MEQ/L (98-107); GLOMERULAR FILTRATION RATE > 60.0 (>58); GLUCOSE, FASTING 245 MG/DL (70-100); POTASSIUM SERUM 4.2 MEQ/L (3.5-5.1); SODIUM LEVEL 138 MEQ/L (136-145)
[2019-01-12 08:22] LABS: ERYTHROCYTE SEDIMENTATION RATE 31 mm/hr (0-20)
[2019-01-12 08:44] VITALS: BP 116/56
[2019-01-12] MEDS: LINEZOLID 600MG TABLET (ZYVOX) PO SCH (08:44)
[2019-01-12] MEDS: HumaLOG INSULIN (NovoLOG) PER UNIT SC SCH ×2 (08:44→13:38)
[2019-01-12] MEDS: LISINOPRIL 20 MG TAB PO SCH (08:44)
--- NOTE | 2019-01-12 10:24 | CR ---
DATE OF CONSULTATION: 01/10/2019 Willa is a 48-year-old pleasant female with a history of type 2 diabetes not on insulin, hypertension, hyperlipidemia. She has poorly controlled diabetes and had a diabetic foot ulcer since this summer. The patient has been admitted in November from the until the for similar complaint with a foot abscess which was cultured positive for Methicillin-resistant Staphylococcus aureus (MRSA). At that time she had an incision and drainage for deep abscess with delayed closure. She was treated with IV antibiotics in the hospital and discharged home on p.o. doxycycline for about 10 days. She had been off antibiotics for about 10 days when she developed worsening swelling of the right foot and fever. The patient was admitted on January 04. She had no fever or chills. No nausea, vomiting or diarrhea. No abdominal pain. The patient was started on broad-spectrum antibiotics with IV vancomycin and Zosyn. She had an MRI of the foot which showed acute osteomyelitis of the 4th metatarsal and 4th proximal phalanx, so she underwent a ray amputation by Dr. Carroll. Also there were 2-3 cm abscesses that were drained as well. The patient was taken to the operating room on January 05 and she underwent delayed closure. Today she is feeling much better. PAST MEDICAL HISTORY: Significant for non-insulin dependent diabetes, poorly controlled. Diabetic neuropathy. Hyperlipidemia. Hypertension. PAST SURGICAL HISTORY: Incision and drainage of the right 4th toe prior to this hospitalization and current ray amputation. She had 2 years ago a previous history of abscess as well. ALLERGIES: No known drug allergies. SOCIAL HISTORY: She is disabled. She lives with her mother. She was never . Does not have kids. She denies any alcohol, drug or smoking use. PHYSICAL EXAMINATION: She is healthy-looking pleasant female in no acute distress. Heart: Normal S1-S2. No murmurs, rubs or gallops. Lungs are clear. No wheezes or rhonchi. Abdomen is obese, soft, nontender. Extremities: Right leg has +1 pitting edema, is slightly more discolored and pinkish in color all the way to the knee. There is bloody discharge, but no purulence and no fluctuance. Neurologic Exam: Alert and oriented times three. Motor strength is normal. LABS: White count is 8.1, hemoglobin 11, hematocrit 33.6, platelets 295. Sodium 135, potassium 4, chloride 103, bicarb 26, BUN 10, creatinine 0.9, glucose 279, calcium 8, CRP 0.64. Wound culture was positive from the right foot on 01/04 with MRSA. Blood cultures two sets were negative. Repeat wound cultures from 01/04 had MSSA with Corynebacterium species, and from 01/10, another wound culture was done and is pending. IMPRESSION: This is a 48-year-old female with poorly controlled diabetes who was admitted after she had a previous admission with a foot abscess, now had developed acute osteomyelitis of the 4th toe. She underwent a ray amputation. There is no residual bone infection. PLAN The patient needs to be treated for MRSA cellulitis and abscess. I would suggest continuing 7-10 days of p.o. linezolid 600 mg b.i.d. That will be started tonight. Please obtain prior authorization for linezolid before the patient could be discharged home. Case has been discussed with Dr. Carroll who has agreed with the plan. MTDD
[2019-01-12 12:00] VITALS: BP 133/78
[2019-01-12] MEDS ORDERED: LINE1TAB PO (13:05)
--- NOTE | 2019-01-12 13:15 | DS.PDOC ---
Discharge Summary General Date of Admission Jan 04, 2019 at 18:59 Date of Discharge 01/12/2019 Discharge Summary PROCEDURES PERFORMED DURING STAY: 01/05/2019 4th ray amputation right foot with Dr. Carroll 01/10/2019 Excisional debridement through bone including bone biopsy fourth ray right foot with Dr. Carroll ADMITTING DIAGNOSES / DISCHARGE DIAGNOSES: Right foot osteomyelitis with 4th metatarsal & 4th proximal phalanx abscess DM2 with Hyperglycemia and Neuropathy DLP HTN DVT prophylaxis COMPLICATIONS/CHIEF COMPLAINT: Right foot swelling, warmth and tenderness HISTORY OF PRESENT ILLNESS: Patient is a 48-year-old female with a PMHx of HTN, DLP, DM2, and history of right foot diabetic ulcer requiring I&D and secondary closure with Dr. Carroll during a hospital stay 11/27 - 12/07. Patient presented to the emergency room again with swelling of her right foot, associated with redness and warmth. Patient was admitted to hospitalist service for further evaluation and treatment. Dr. Carroll was called on consultation, along with Dr. Juan. HOSPITAL COURSE: Right foot osteomyelitis with 4th metatarsal & 4th proximal phalanx abscess - Patient is status post amputation with Dr. Carroll on 01/06 and excisional debridement including bone biopsy on 01/10 - Wound cultures have revealed MRSA and Corynebacterium species - Blood cultures 01/04: have been negative after 5 days - Linezolid has been started; s/p Zosyn and Vancomycin (Antibiotic Day #8) - will complete antibiotic course as an outpatient - Dr. Carrlol and Dr. Juan on consultation; will have outpatient follow-up wit h Dr. Carroll on Thursday for drain removal DM2 with Hyperglycemia and Neuropathy - c/w ISS and Levemir DLP - c/w Atorvastatin HTN - BP appears well controlled - c/w Lisinopril DVT prophylaxis - c/w SUDHIR and Sequentials DISCHARGE MEDICATIONS: Please see below. ALLERGIES: Please see below. PHYSICAL EXAMINATION ON DISCHARGE: Vitals (See below) General: Lying in bed, no acute distress, comfortable, AAOx3 HEENT: NC, AT CVS: RRR, +S1S2 Lungs: Fair air entry b/l, -w/r/r Abdomen: Soft, ND, NT Extremities: - Edema, - Calf tenderness, R foot in dressing LABORATORY DATA: Please see below. ACTIVITY: [As tolerated]. DISCHARGE PLAN: Follow up with Dr. Leatha Toledo, Dr. Justa Juan and Dr. Carroll within 5 days Remain compliant with treatment plan and medications Return to the ER if you experience any problems DISPOSITION: Home DISCHARGE CONDITION: [Stable]. TIME SPENT ON DISCHARGE: Greater than [35] minutes. Vital Signs/I&Os Vital Signs Date Time Temp Pulse Resp B/P (MAP) Pulse Ox O2 Delivery O2 Flow Rate FiO2 01/12/19 12:00 97.3 69 18 133/78 (96) 97 I&O- Last 24 Hours up to 6 AM 01/12/19 06:00 Intake Total 1140 ml Output Total 2039 ml Balance -899 ml Laboratory Data Labs 24H Laboratory Tests 2 01/11/19 16:58: Bedside Glucose (Misc Panel) 331H 01/11/19 21:09: Bedside Glucose (Misc Panel) 274H 01/12/19 07:12: Nucleated Red Blood Cells % (auto) 0.0, Erythrocyte Sedimentation Rate 31H, An ion Gap 7L, Glomerular Filtration Rate > 60.0, Blood Urea Nitrogen 11, Creatinine 0.80, Sodium Level 138, Potassium Level 4.2, Chloride Level 106, Carbon Dioxide Level 25, Calcium Level 8.5, C-Reactive Protein, Quantitative 0.63H 01/12/19 12:17: Bedside Glucose (Misc Panel) 290H CBC/BMP Laboratory Tests 01/12/19 07:12 Red Blood Count 4.11, Mean Corpuscular Volume 86.6, Mean Corpuscular Hemoglobin 27.7, Mean Corpuscular Hemoglobin Concent 32.0, Red Cell Distribution Width 13.5, Calcium Level 8.5 FSBS Laboratory Tests Test 01/11/19 16:58 01/11/19 21:09 01/12/19 12:17 Range/Units Bedside Glucose (Misc Panel) 331 274 290 70-105 MG/DL Microbiology Microbiology 01/04/19 Blood Culture - Final, Complete NO GROWTH AFTER 5 DAYS 01/04/19 Blood Culture - Final, Complete NO GROWTH AFTER 5 DAYS 01/10/19 Gram Stain - Final, Complete 01/10/19 Wound Culture - Final, Complete 01/10/19 Anaerobic Culture - Final, Complete 01/05/19 Gram Stain - Final, Complete 01/05/19 Wound Culture - Final, Complete Staphylococcus Aureus Corynebacterium Species 01/05/19 Anaerobic Culture - Final, Complete 01/04/19 Wound Culture - Final, Complete Staph.aureus Methicillin Resis Corynebacterium Species 01/04/19 Gram Stain - Final, Complete 01/04/19 Wound Culture - Final, Complete Staph.aureus Methicillin Resis Discharge Medications Scheduled Atorvastatin Calcium (Atorvastatin Calcium) 40 Mg Tab, 40 MG PO QHS, (Reported) Linezolid (Linezolid) 600 Mg Tab, 600 MG PO BID Lisinopril (Lisinopril) 20 Mg Tab, 20 MG PO DAILY, (Reported) Metformin Hydrochloride (Metformin HCl) 1,000 Mg Tab, 1,000 MG PO BID, (Reported) Silver Sulfadiazine (Silvadene) 1 % Cre, 1 APLCT TOP DAILY, (Reported) TO RIGHT FOOT Allergies Coded Allergies: No Known Allergies (Unverified , 06/02/18) UMM SAWYER MD Jan 12, 2019 13:15
[2019-01-12] MEDS ORDERED: NORC1TAB7 PO (13:28)
== END 2019-01-12 15:30 | disposition home or self-care (01) | DRG 314 ==
LOC: M ED 11:55 → M ED INP 18:59 → M PED 23:30
PROVIDERS: ADMIT Internal Medicine; ATTEND Internal Medicine
PROC: 0Y6V0Z1 Detachment at Right 4th Toe, High, Open Approach (ICD-10-PCS; principal; 2019-01-05 16:30)
PROC: 0QBN0ZZ Excision of Right Metatarsal, Open Approach (ICD-10-PCS; 2019-01-10)
PROC: 0QBN0ZX Excision of Right Metatarsal, Open Approach, Diagnostic (ICD-10-PCS; 2019-01-10)
DX: E11.69 Type 2 diabetes mellitus with other specified complication (principal); M86.171 Other acute osteomyelitis, right ankle and foot; L97.519 Non-pressure chronic ulcer of other part of right foot with unspecified severity; E11.65 Type 2 diabetes mellitus with hyperglycemia; I10 Essential (primary) hypertension; E78.5 Hyperlipidemia, unspecified; E11.42 Type 2 diabetes mellitus with diabetic polyneuropathy; E11.621 Type 2 diabetes mellitus with foot ulcer; B95.62 Methicillin resistant Staphylococcus aureus infection as the cause of diseases classified elsewhere; B96.89 Other specified bacterial agents as the cause of diseases classified elsewhere; E66.9 Obesity, unspecified; Z68.33 Body mass index [BMI] 33.0-33.9, adult; Z79.899 Other long term (current) drug therapy; Z79.84 Long term (current) use of oral hypoglycemic drugs; Z83.3 Family history of diabetes mellitus; Z89.421 Acquired absence of other right toe(s)

== ENCOUNTER → 2019-01-21 | Outpatient (REF) | payer BC ==
[~2019-01-21] MED LIST changes: +LINE1TAB PO; +NORC1TAB7 PO; +SILV1CRE60 TOP
[2019-01-21 12:31] LABS: HEMOGLOBIN A1c 10.3 %
[2019-01-21 12:36] LABS: CREATININE, URINE 56.2 MG/DL; MALB URINE SIEMENS 26.6 MG/L; MAU/CREAT RATIO 47.3 MCG/MG (0.0-30.0)
== END ==
LOC: M SFHCPLAZ 09:29
PROVIDERS: ATTEND Family Medicine
DX: E11.621 Type 2 diabetes mellitus with foot ulcer (principal)

== ENCOUNTER → 2019-01-24 | Outpatient (REF) | payer BC ==
[2019-01-24 11:58] LABS: BASO # 0.1 10^3/uL (0.0-0.2); BASO % 0.8 % (0.0-1.0); EOS # 0.2 10^3/uL (0.0-0.50); EOS % 2.4 % (0.0-3.0); HEMATOCRIT 41.5 % (36.0-47.0); HEMOGLOBIN 13.5 g/dl (12.0-15.5); LYMPH # 1.9 10^3/uL (1.5-4.5); MEAN CORPUSCULAR HEMOGLOBIN 28.3 pg (27.0-33.0); MEAN CORPUSCULAR HGB CONC 32.5 g/dl (32.0-36.5); MONO # 0.7 10^3/uL (0.0-0.8); MONO % 8.2 % (0.0-5.0); NEUTROPHILS # 5.1 10^3/uL (1.8-7.7); NEUTROPHILS % 64.2 % (36.0-66.0); PLATELET COUNT, AUTOMATED 193 10^3/uL (150-450); RED BLOOD COUNT 4.77 10^6/uL (4.00-5.40)
[2019-01-24 12:25] LABS: ERYTHROCYTE SEDIMENTATION RATE 13 mm/hr (0-20)
[2019-01-24 12:26] LABS: BLOOD UREA NITROGEN 12 MG/DL (7-18); C REACTIVE PROTEIN QUANTITATIV 0.73 MG/DL (0.00-0.30); CALCIUM LEVEL 8.5 MG/DL (8.5-10.1); CARBON DIOXIDE LEVEL 28 MEQ/L (21-32); CHLORIDE LEVEL 104 MEQ/L (98-107); CREATININE FOR GFR 0.73 MG/DL (0.55-1.30); GLOMERULAR FILTRATION RATE > 60.0 (>58); GLUCOSE, FASTING 157 MG/DL (70-100); POTASSIUM SERUM 3.9 MEQ/L (3.5-5.1); SODIUM LEVEL 139 MEQ/L (136-145)
== END ==
LOC: M SFHCPLAZ 10:45
PROVIDERS: ATTEND Internal Medicine Infectious Disease
DX: M86.171 Other acute osteomyelitis, right ankle and foot (principal)

== ENCOUNTER → 2019-02-15 | Outpatient (REF) | payer BC ==
[2019-02-15 11:48] LABS: BASO % 0.3 % (0.0-1.0); EOS # 0.2 10^3/uL (0.0-0.50); EOS % 2.5 % (0.0-3.0); HEMATOCRIT 42.7 % (36.0-47.0); HEMOGLOBIN 13.8 g/dl (12.0-15.5); LYMPH # 2.4 10^3/uL (1.5-4.5); LYMPH % 33.4 % (24.0-44.0); MEAN CORPUSCULAR HGB CONC 32.3 g/dl (32.0-36.5); MEAN CORPUSCULAR VOLUME 86.6 fl (80.0-96.0); MONO # 0.5 10^3/uL (0.0-0.8); NEUTROPHILS # 4.1 10^3/uL (1.8-7.7); NEUTROPHILS % 56.4 % (36.0-66.0); PLATELET COUNT, AUTOMATED 219 10^3/uL (150-450); RED BLOOD COUNT 4.93 10^6/uL (4.00-5.40); WHITE BLOOD COUNT 7.3 10^3/uL (4.0-10.0)
[2019-02-15 11:57] LABS: BLOOD UREA NITROGEN 11 MG/DL (7-18); C REACTIVE PROTEIN QUANTITATIV < 0.30 MG/DL (0.00-0.30); CARBON DIOXIDE LEVEL 29 MEQ/L (21-32); CHLORIDE LEVEL 103 MEQ/L (98-107); CREATININE FOR GFR 0.73 MG/DL (0.55-1.30); GLOMERULAR FILTRATION RATE > 60.0 (>58); GLUCOSE, FASTING 204 MG/DL (70-100); MAGNESIUM LEVEL 1.9 MG/DL (1.8-2.4); POTASSIUM SERUM 4.8 MEQ/L (3.5-5.1); SODIUM LEVEL 136 MEQ/L (136-145)
== END ==
LOC: M SFHCPLAZ 10:01
PROVIDERS: ATTEND Internal Medicine Infectious Disease
DX: M86.171 Other acute osteomyelitis, right ankle and foot (principal); G47.62 Sleep related leg cramps

== ENCOUNTER → 2019-03-16 | Outpatient (REF) | payer BC ==
[2019-03-16 11:53] LABS: CREATININE, URINE 72.7 MG/DL; MALB URINE SIEMENS 25.4 MG/L; MAU/CREAT RATIO 34.9 MCG/MG (0.0-30.0)
== END ==
LOC: M SFHCPLAZ 09:22
PROVIDERS: ATTEND Family Medicine
DX: E11.29 Type 2 diabetes mellitus with other diabetic kidney complication (principal)

== ENCOUNTER → 2019-03-29 | Outpatient (REF) | payer BC | LOC: M LAB REF 16:23 | PROVIDERS: ATTEND Podiatrist | DX: M79.671 Pain in right foot (principal) ==

== ENCOUNTER → 2019-04-28 | Outpatient (REF) | payer BC | LOC: M LAB REF 18:33 | PROVIDERS: ATTEND Podiatrist | DX: L03.125 Acute lymphangitis of right lower limb (principal); M79.671 Pain in right foot ==

== ENCOUNTER → 2019-06-08 | Outpatient (REF) | payer BC ==
[2019-06-08 15:35] LABS: CREATININE, URINE 77.1 MG/DL; MALB URINE SIEMENS 20.4 MG/L; MAU/CREAT RATIO 26.4 MCG/MG (0.0-30.0)
[2019-06-08 15:53] LABS: HEMOGLOBIN A1c 9.5 %
== END ==
LOC: M SFHCPLAZ 10:50
PROVIDERS: ATTEND Family Medicine
DX: E11.621 Type 2 diabetes mellitus with foot ulcer (principal)

== ENCOUNTER → 2019-06-21 | Outpatient (REF) | payer BC ==
[~2019-06-21] MED LIST changes: +GABA-843 PO; +HUMA50IN4 SC
== END ==
LOC: M LAB REF 18:59
PROVIDERS: ATTEND Podiatrist
DX: L03.125 Acute lymphangitis of right lower limb (principal); M79.671 Pain in right foot

== ENCOUNTER 2019-06-30 15:44 | Inpatient (IN) | payer BC ==
[~2019-06-30] VITALS: Ht 160 cm; Wt 87.5 kg
[~2019-06-30 15:44] MED LIST changes: -GABA-843 PO; -HUMA50IN4 SC
[2019-06-30] MEDS ORDERED: DEXTROSE 50% 50 ML SYRINGE IV PRN (16:15)
[2019-06-30] MEDS ORDERED: GLUCAGON FOR INJ 1 MG VIAL (J1610) SC PRN (16:15)
[2019-06-30] MEDS ORDERED: GLUCOSE 4 GM CHEW TABLET PO PRN (16:15)
[2019-06-30 16:32] VITALS: BP 159/88
[2019-06-30 17:14] LABS: HEMATOCRIT 41.1 % (36.0-47.0); HEMOGLOBIN 13.6 g/dl (12.0-15.5); MEAN CORPUSCULAR HEMOGLOBIN 28.4 pg (27.0-33.0); MEAN CORPUSCULAR HGB CONC 33.1 g/dl (32.0-36.5); MEAN CORPUSCULAR VOLUME 85.8 fl (80.0-96.0); PLATELET COUNT, AUTOMATED 257 10^3/uL (150-450); RED BLOOD COUNT 4.79 10^6/uL (4.00-5.40); WHITE BLOOD COUNT 6.6 10^3/uL (4.0-10.0)
[2019-06-30] MEDS ORDERED: HUMA50IN4 SC (17:16)
[2019-06-30] MEDS ORDERED: GABA-843 PO (17:16)
[2019-06-30] MEDS ORDERED: BASA100I SC (17:16)
[2019-06-30 17:24] LABS: PARTIAL THROMBOPLASTIN TIME 27.2 SECONDS (25.0-38.4); PROTHROMBIN TIME 12.9 SECONDS (11.8-14.0)
[2019-06-30] MEDS: HumaLOG INSULIN (NovoLOG) PER UNIT SC SCH ×2 (17:29→20:31)
[2019-06-30 17:50] LABS: ALBUMIN 3.5 GM/DL (3.2-5.2); ALT/SGPT 17 U/L (12-78); BILIRUBIN,TOTAL 0.4 MG/DL (0.2-1.0); BLOOD UREA NITROGEN 10 MG/DL (7-18); CALCIUM LEVEL 9.2 MG/DL (8.5-10.1); CARBON DIOXIDE LEVEL 22 MEQ/L (21-32); CHLORIDE LEVEL 99 MEQ/L (98-107); CREATININE FOR GFR 1.01 MG/DL (0.55-1.30); GLOMERULAR FILTRATION RATE > 60.0 (>58); GLUCOSE, FASTING 334 MG/DL (70-100); POTASSIUM SERUM 4.9 MEQ/L (3.5-5.1); SODIUM LEVEL 131 MEQ/L (136-145); TOTAL PROTEIN 7.9 GM/DL (6.4-8.2)
[2019-06-30] MEDS ORDERED: PROHANCE 279.3MG/ML 5ML VIAL (A9576) As Ordered ONE (17:53)
[2019-06-30] MEDS ORDERED: PROHANCE 279.3MG/ML 15ML VIAL (A9576) As Ordered ONE (17:53)
--- NOTE | 2019-06-30 18:22 | REP ---
Right foot series: Four views. History: Rule out Osteo. Comparison right foot radiographs are from January 10, 2019. Findings: The patient is status post multiple resections. The third and fourth distal metatarsals have been resected. The fourth digit is resected. The third phalanges remain. There is resection of the distal end of the second metatarsal. Some soft tissue ossification is seen at the resection site seen along the forefoot adjacent to the third and fourth metatarsal resections. No acute bony erosive changes seen. There is evidence of a soft tissue defect in the volar soft tissues at the ball of the foot on the lateral film consistent with ulcer. No other soft tissue gas is seen. There is mild to moderate diffuse swelling of the forefoot. A large plantar and Achilles calcaneal spur are noted. Impression: Forefoot swelling. Postoperative changes. No acute bony erosive change. There is evidence of an ulcer in the ball of the foot on the volar soft tissues. Electronically Signed by Christian Uriostegui MD 06/30/2019 07:28 P
[2019-06-30 19:44] LABS: HEMOGLOBIN A1c 9.7 %
[2019-06-30 20:00] VITALS: BP 127/71
--- NOTE | 2019-06-30 20:17 | REPVR ---
EXAM: MR Right Lower Extremity Without and With Contrast, Foot EXAM DATE/TIME: 06/30/2019 4:48 PM CLINICAL HISTORY: 48 years old, female; Condition or disease; Other: Osteomylitis; Prior surgery; Surgery date: 1-6 months; Surgery type: Toe amputation; Patient HX: HX surg, R/O osteo TECHNIQUE: Imaging protocol: MR of the Right foot without and with intravenous contrast. Contrast material: PROHANCE; Contrast volume: 17 ml; Contrast route: IV; COMPARISON: MRI-Foot W/O FOL WITH 01/04/2019 4:54 PM FINDINGS: Bones/joints: There is a prominent ulceration at the plantar aspect of the foot level of the first metatarsal phalangeal joint. There is a loculation of fluid at the joint consistent with a large area of infectious synovitis and abscess formation. The fluid tracks into the soft tissues at the plantar aspect of the foot where there are multiple small round abscess collections. There is bone loss of the distal end of the first metatarsal consistent with changes of osteomyelitis. In addition there is a small ulceration distal end of the second metatarsal. Chronic bone loss in this area. A scarring on plantar aspect of foot at this location. There has been removal of most of the third and fourth metatarsals. The fourth toe is absent. The third toe remains. IMPRESSION: 1. at the plantar aspect of the foot there is a ulceration with a draining sinus. The sinus communicates with fluid surrounding the first metatarsal phalangeal joints consistent with infectious synovitis and abscess formation of the joint. This tract also communicates with multiple small areas of abscess in the soft tissues plantar aspect of the foot. 2. Bone loss of the distal end of the first metatarsal is consistent with changes of osteomyelitis. Reactive change in bone throughout the first metatarsal. 3. Small wound at the plantar aspect of the foot second metatarsal and prominent scarring. Electronically signed by: Garett Fernandez On 06/30/2019 20:17:17 PM
[2019-06-30] MEDS: ATORVASTATIN 20 MG TAB PO SCH (20:30)
[2019-06-30] MEDS: CEFTAROLINE FOSAMIL 600 MG in D5W MINI-BAG PLUS 50 ML IV SCH (20:31)
--- NOTE | 2019-06-30 21:49 | HPE ---
DATE OF ADMISSION: 06/30/2019 PRIMARY CARE PROVIDER: Dr. Matamoros at [facility] clinic. ATTENDING PHYSICIAN: Hospitalist Group CHIEF COMPLAINT: Diabetic foot ulcer. HISTORY: I was called by Dr. Carroll to directly admit this patient for a diabetic foot ulcer, unresponsive to outpatient therapy. She was apparently taking a oral antibiotic at home. It looks like she was on Augmentin for two courses of two weeks each in April. Started Augmentin 875 mg on 06/21/2019, changed to Bactrim 06/23/2019. PAST MEDICAL HISTORY: Shows diabetes with several diabetic foot infections including amputation of the right 3rd toe and part of the right 4th toe. She also has hypertension, type 2 diabetes and asthma. Rule out Methicillin-resistant Staphylococcus aureus (MRSA) from a right foot culture 06/21/2019. She has grown that out previously including December of this year. FAMILY HISTORY: Father has diabetes. Mother diabetes, heart disease. Some siblings with diabetes. SOCIAL HISTORY: Does not smoke. No significant alcohol use. 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 ALLERGIES: None known. MEDICATIONS: - lisinopril 20 mg daily - atorvastatin 20 mg daily - sliding scale of Humalog - gabapentin 300 mg four times a day - metformin 1000 mg twice a day - Trulicity 0.75 mg weekly - Basaglar 50 units daily REVIEW OF SYSTEMS: No polyuria, polydipsia, chest pain or shortness of breath, epistaxis, rectal bleeding. PHYSICAL EXAMINATION: Vital signs per flow sheet. General appearance: Conversant. No distress. Pupils equal, round, reactive to light. TMs and oropharynx benign. Neck: No masses. Lungs: Clear. Heart: Without murmur. Abdomen: Soft, nontender. No masses. Right foot: Dressed. Bleeding on the bottom of the foot near the first 2nd MTP joint. IMPRESSION: 1. Diabetic foot ulcer. Patient has been admitted for IV antibiotics. Will start her on ceftaroline due to previous MRSA culture. I have ordered routine labs. Will get a plain film of her foot and then also an MRI scan. 2. Hypertension. Continue with lisinopril 20 mg daily. 3. Hyperlipidemia. Continue atorvastatin at her current outpatient dose. 4. Diabetes. Will put her on sliding scale of insulin with fingerstick blood sugars and the rounding team can start basal insulin tomorrow. Need to see what her insulin requirements are on an enforced consistent carbohydrate diet. Hospitalist will be following her after admission. The case has been discussed with Dr. Carroll who is aware of the consultation.
[2019-06-30] MEDS: ACETAMINOPHEN 500 MG TAB PO PRN (21:51)
[2019-07-01 07:33] LABS: BASO % 0.7 % (0.0-1.0); EOS # 0.1 10^3/uL (0.0-0.5); EOS % 2.8 % (0.0-3.0); HEMATOCRIT 36.3 % (36.0-47.0); HEMOGLOBIN 11.7 g/dl (12.0-15.5); LYMPH # 2.3 10^3/uL (1.5-5.0); LYMPH % 53.5 % (24.0-44.0); MEAN CORPUSCULAR HEMOGLOBIN 27.5 pg (27.0-33.0); MEAN CORPUSCULAR HGB CONC 32.2 g/dl (32.0-36.5); MEAN CORPUSCULAR VOLUME 85.2 fl (80.0-96.0); MONO # 0.5 10^3/uL (0.0-0.8); MONO % 12.5 % (0.0-5.0); NEUTROPHILS # 1.3 10^3/uL (1.5-8.5); NEUTROPHILS % 30.3 % (36.0-66.0); PLATELET COUNT, AUTOMATED 195 10^3/uL (150-450); RED BLOOD COUNT 4.26 10^6/uL (4.00-5.40); WHITE BLOOD COUNT 4.2 10^3/uL (4.0-10.0)
[2019-07-01 07:58] LABS: BLOOD UREA NITROGEN 11 MG/DL (7-18); CALCIUM LEVEL 8.6 MG/DL (8.5-10.1); CARBON DIOXIDE LEVEL 25 MEQ/L (21-32); CHLORIDE LEVEL 103 MEQ/L (98-107); CREATININE FOR GFR 0.87 MG/DL (0.55-1.30); GLOMERULAR FILTRATION RATE > 60.0 (>58); GLUCOSE, FASTING 283 MG/DL (70-100); POTASSIUM SERUM 4.6 MEQ/L (3.5-5.1); SODIUM LEVEL 135 MEQ/L (136-145)
[2019-07-01] MEDS: HumaLOG INSULIN (NovoLOG) PER UNIT SC SCH ×4 (08:39→20:10)
[2019-07-01] MEDS: CEFTAROLINE FOSAMIL 600 MG in D5W MINI-BAG PLUS 50 ML IV SCH (08:39)
[2019-07-01] MEDS: LISINOPRIL 20 MG TAB PO SCH (08:40)
[2019-07-01] MEDS: ENOXAPARIN 40 MG/0.4 ML SYRINGE (J1650) SC SCH (08:40)
--- NOTE | 2019-07-01 13:42 | IPNPDOC ---
Text Note Date of Service The patient was seen on 07/01/19. NOTE Subjective: -Feels well, no complaints, looking forward to seeing Dr. Carroll ROS: Reviewed. Grossly normal 12 point ROS. Objective: Vitals: Please see below General appearance: Conversant. No distress. Eyes: PERRLA, EOMI ENT: clear posterior oropharynx Neck: No masses or adenopathy Lungs: Clear to auscultation bilaterally without wheezing, rales or rhonchi Heart: RRR, s1s2, no murmur Abdomen: Soft, baseline distention per patient, nontender. No masses. Right foot: Dressed. Extremities: No LE edema, warm and well perfused Labs: see below Imagin06/30/2019: MRI of right foot: 1. at the plantar aspect of the foot there is a ulceration with a draining sinus. The sinus communicates with fluid surrounding the first metatarsal phalangeal joints consistent with infectious synovitis and abscess formation of the joint. This tract also communicates with multiple small areas of abscess in the soft tissues plantar aspect of the foot. 2. Bone loss of the distal end of the first metatarsal is consistent with changes of osteomyelitis. Reactive change in bone throughout the first metatarsal. 3. Small wound at the plantar aspect of the foot second metatarsal and prominent scarring. 06/30/2019: R foot XR: Forefoot swelling. Postoperative changes. No acute bony erosive change. There is evidence of an ulcer in the ball of the foot on the volar soft tissues. Assessment: 48 yo W with diabetes c/b neuropathy, hypertension, hyperlipidemia, who was a direct admit from her clinical nurse specialist's office, Dr. Carroll, diabetic foot ulcer, unresponsive to outpatient therapy after trial of 2 courses of Augmentin and later bactrim with plan for IV antibiotis as well as investigation of depth of infection, now on ceftaroline given prior history of MRSA with MRI showing small areas of abscess formation and osteomyelitis. Plan 1.Diabetic foot ulcer: -Imaging showing small abscess and osteomyelitis, clinical nurse specialist onboard, appreciate pending recs -continue ceftaroline 2. Hypertension. -Continue with lisinopril 20 mg daily. 3. Hyperlipidemia. -Continue atorvastatin at her current outpatient dose. 4. Diabetes. -Continue sliding scale of insulin with fingerstick blood -Add 10U Levemir QHS in the setting of hyperglcemia -consistent carbohydrate diet DVT ppx: Lovenox 40 subcutaneous daily VS,Fishbone, I+O VS, Fishbone, I+O Laboratory Tests 06/30/19 16:44 Red Blood Count 4.79, Mean Corpuscular Volume 85.8, Mean Corpuscular Hemoglobin 28.4, Mean Corpuscular Hemoglobin Concent 33.1, Red Cell Distribution Width 13.8, Calcium Level 9.2, Aspartate Amino Transf (AST/SGOT) 24, Alanine Aminotransferase (ALT/SGPT) 17, Alkaline Phosphatase 88, Total Bilirubin 0.4, Total Protein 7.9, Albumin 3.5 07/01/19 07:15 Red Blood Count 4.26, Mean Corpuscular Volume 85.2, Mean Corpuscular Hemoglobin 27.5, Mean Corpuscular Hemoglobin Concent 32.2, Red Cell Distribution Width 13.9, Calcium Level 8.6, Neutrophils (%) (Auto) 30.3 L, Lymphocytes (%) (Auto) 53.5 H, Monocytes (%) (Auto) 12.5 H, Eosinophils (%) (Auto) 2.8, Basophils (%) (Auto) 0.7, Neutrophils # (Auto) 1.3 L, Lymphocytes # (Auto) 2.3, Monocytes # (Auto) 0.5, Eosinophils # (Auto) 0.1, Basophils # (Auto) 0.0 Vital Signs Date Time Temp Pulse Resp B/P (MAP) Pulse Ox O2 Delivery O2 Flow Rate FiO2 07/01/19 08:40 122/75 06/30/19 20:00 97.3 105 18 99 I&O- Last 24 Hours up to 6 AM0 07/01/19 06:00 Intake Total 360 ml Balance 360 ml LIBBY FLORES MD Jul 01, 2019 13:42
[2019-07-01 14:00] VITALS: BP 104/53
--- NOTE | 2019-07-01 14:05 | PHACANCOPD ---
PHARMACY VANCOMYCIN DOSING Pt Demographics Demographics Patient Age:48 , Weight:87.500 , Gender: female Adjusted Body Weight Date: 07/01/19, Adjusted Body Weight: [87.5] Kg Events Past 24 Hours Events Past 24 Hours: NO: Dialysis, Diuretic Therapy, Change in CrCl, Fever, Elevation in WBC, Pending Diagnostics, Pending Procedures, Other Vancomycin Vancomycin indication: SUSPECTED MRSA, PATIENT GREW IN THE PAST Vancomycin Target Ranges: 15-20 mcg/ml Vancomycin Load Y/N: Yes Load Dose Date Time Vancomycin Load Dose: 2G Date: 07/01/19 Time: 1500 Vancomycin Dose Date: 07/01/19. Current Vancomycin Dose: [1G Q8H] Intermittent Dosing?: No Labs Labs Vital Signs Label Value Date Time Patient Temperature 97.9 degrees F 06/30/19 1632 Patient Temperature 97.3 degrees F 06/30/191999 Item Value Date Time Creatinine 0.87 MG/DL 07/01/19 0715 Creatinine Clearance Date:07/01/19. Creatinine Clearance: . Assessment and Plan Maintaining Current Dose?: Yes Reason for dose change: No Dose Change Pharmacist Note Pharmacist Note Date: 07/01/19. Pharmacist note: Patient being treated for a diabetic foot ulcer that has infiltrated the bone tissue. Patient has been treated for a confirmed MRSA infection at our facility earlier this year 12/2018 as well as 06/2019. SrCr= .87 and CrCl= 82.9. Loading dose of 2g is being given 07/01/19 at 1500, followed by a maintenance dose of 1g q8h. Will continue to monitor and adjust doses as necessary. ANICETO HUNTER, PHARMACY Jul 01, 2019 14:05
[2019-07-01 14:47] LABS: C REACTIVE PROTEIN QUANTITATIV 2.27 MG/DL (0.00-0.30)
[2019-07-01] MEDS ORDERED: VANCOMYCIN HCL 1,000 MG, VIAL MATE ADAPTER 1 EACH in D5W 250 ML IV ONE (15:00)
[2019-07-01] MEDS: VANCOMYCIN HCL 1,000 MG, VIAL MATE ADAPTER 1 EACH in D5W 250 ML IV SCH (16:24)
--- NOTE | 2019-07-01 18:01 | IPN ---
DATE: 07/01/2019 at 12:44 p.m. CHIEF COMPLAINT: The patient is seen for evaluation at bedside for evaluation of infected right foot. The patient was seen in my office. She initially was placed on oral antibiotics and wound care. She had some improvement of her right foot. However, she returned to the office yesterday, had continued swelling, discharge and pain. We discussed with the patient admission to the hospital with IV antibiotics and MRI and she is now at bedside. The patient is alert and oriented times three. Temperature is 97.3, pulse 105, respirations 18, blood pressure is 127/71, pulse oximetry 99% on room air. She has a bandage present on her right foot. There is an ulceration submetatarsal one and submetatarsal three region. The patient had an MRI of her right foot. The MRI shows change in signal at the distal aspect of the first metatarsal consistent with osteomyelitis. She has had a previous amputation of the third ray and partial fourth ray resection. However, she does have digits two, four and five. She has had some Charcot changes of her midfoot. ASSESSMENT: Osteomyelitis, first metatarsal. We discussed with the patient due to her prior surgeries that the most logical choice would be a transmetatarsal amputation to try to rebalance her right foot. Dr. Juan was consulted for her wound coverage. She will be scheduled Thursday for a transmetatarsal amputation. She will be nothing by mouth after breakfast on Thursday morning. Hold her Lovenox on Thursday. Her questions were answered.
[2019-07-01] MEDS: ACETAMINOPHEN 500 MG TAB PO PRN (20:09)
[2019-07-01] MEDS: ATORVASTATIN 20 MG TAB PO SCH (20:09)
[2019-07-01] MEDS ORDERED: LEVEMIR (INSULIN DETEMIR) 1 UNITS/0.01ML SC SCH (21:00)
[2019-07-01] MEDS: MUPIROCIN 2% OINT 22 GM TUBE TOP SCH (21:55)
[2019-07-01 22:00] VITALS: BP 130/78
[2019-07-02] MEDS: VANCOMYCIN HCL 1,000 MG, VIAL MATE ADAPTER 1 EACH in D5W 250 ML IV SCH ×3 (00:39→16:42)
[2019-07-02 06:00] VITALS: BP 102/65
[2019-07-02 07:08] LABS: BASO % 0.5 % (0.0-1.0); EOS # 0.2 10^3/uL (0.0-0.5); EOS % 3.9 % (0.0-3.0); HEMATOCRIT 36.4 % (36.0-47.0); HEMOGLOBIN 11.9 g/dl (12.0-15.5); LYMPH # 1.6 10^3/uL (1.5-5.0); LYMPH % 37.9 % (24.0-44.0); MEAN CORPUSCULAR HEMOGLOBIN 27.8 pg (27.0-33.0); MEAN CORPUSCULAR HGB CONC 32.7 g/dl (32.0-36.5); MONO # 0.4 10^3/uL (0.0-0.8); MONO % 10.4 % (0.0-5.0); NEUTROPHILS # 1.9 10^3/uL (1.5-8.5); NEUTROPHILS % 47.1 % (36.0-66.0); PLATELET COUNT, AUTOMATED 197 10^3/uL (150-450); RED BLOOD COUNT 4.28 10^6/uL (4.00-5.40); WHITE BLOOD COUNT 4.1 10^3/uL (4.0-10.0)
[2019-07-02 07:39] LABS: BLOOD UREA NITROGEN 14 MG/DL (7-18); CALCIUM LEVEL 8.8 MG/DL (8.5-10.1); CARBON DIOXIDE LEVEL 24 MEQ/L (21-32); CHLORIDE LEVEL 104 MEQ/L (98-107); CREATININE FOR GFR 0.89 MG/DL (0.55-1.30); GLOMERULAR FILTRATION RATE > 60.0 (>58); GLUCOSE, FASTING 307 MG/DL (70-100); POTASSIUM SERUM 4.4 MEQ/L (3.5-5.1); SODIUM LEVEL 135 MEQ/L (136-145)
[2019-07-02 08:00] VITALS: BP 117/65
[2019-07-02] MEDS: ENOXAPARIN 40 MG/0.4 ML SYRINGE (J1650) SC SCH (08:11)
[2019-07-02] MEDS: LISINOPRIL 20 MG TAB PO SCH (08:11)
[2019-07-02] MEDS: MUPIROCIN 2% OINT 22 GM TUBE TOP SCH ×2 (08:12→20:31)
[2019-07-02] MEDS: HumaLOG INSULIN (NovoLOG) PER UNIT SC SCH ×4 (08:12→20:31)
--- NOTE | 2019-07-02 10:48 | IPNPDOC ---
Text Note Date of Service The patient was seen on 07/02/19. NOTE Subjective: -Feels well, no complaints this morning ROS: Reviewed. Grossly normal 12 point ROS. Objective: Vitals: Please see below General appearance: Conversant. No distress. Eyes: PERRLA, EOMI ENT: clear posterior oropharynx Neck: Supple, no adenopathy Lungs: Clear to auscultation bilaterally without wheezing, rales or rhonchi Heart: RRR, s1s2, no murmur Abdomen: Soft, baseline distention per patient, nontender. No palpable masses. Right foot: Dressed, mild edema around bandage, dressing c/d/i Extremities: No LE edema, warm and well perfused Labs: see below Imagin06/30/2019: MRI of right foot: 1. at the plantar aspect of the foot there is a ulceration with a draining sinus. The sinus communicates with fluid surrounding the first metatarsal phalangeal joints consistent with infectious synovitis and abscess formation of the joint. This tract also communicates with multiple small areas of abscess in the soft tissues plantar aspect of the foot. 2. Bone loss of the distal end of the first metatarsal is consistent with changes of osteomyelitis. Reactive change in bone throughout the first metatarsal. 3. Small wound at the plantar aspect of the foot second metatarsal and prominent scarring. 06/30/2019: R foot XR: Forefoot swelling. Postoperative changes. No acute bony erosive change. There is evidence of an ulcer in the ball of the foot on the volar soft tissues. Assessment: 48 yo W with diabetes c/b neuropathy, hypertension, hyperlipidemia, who was a direct admit from her validation analyst's office, Dr. Carroll, diabetic foot ulcer, unresponsive to outpatient therapy after trial of 2 courses of Augmentin and later bactrim with plan for IV antibiotis as well as investigation of depth of infection, now on ceftaroline given prior history of MRSA with MRI showing small areas of abscess formation and osteomyelitis. Plan 1.Diabetic foot ulcer: -Imaging showing small abscess and osteomyelitis, validation analyst onboard, appreciate pending recs -ID was consulted by podiatry, appreciate recs --> switched from ceftaroline to vanc -Podiatry onboard, scheduled for Thursday for a transmetatarsal amputation. She will be nothing by mouth after breakfast on Thursday morning. Will hold her Lovenox on Thursday. 2. Hypertension. -Continue with lisinopril 20 mg daily. 3. Hyperlipidemia. -Continue atorvastatin at her current outpatient dose. 4. Diabetes. -Continue sliding scale of insulin with fingerstick blood -Increase Levemir QHS to 20U in the setting of hyperglcemia -consistent carbohydrate diet DVT ppx: Lovenox 40 subcutaneous daily Dispo: Inpatient, pending surgery on Thursday. VS,Fishbone, I+O VS, Fishbone, I+O Laboratory Tests 07/02/19 06:57 Red Blood Count 4.28, Mean Corpuscular Volume 85.0, Mean Corpuscular Hemoglobin 27.8, Mean Corpuscular Hemoglobin Concent 32.7, Red Cell Distribution Width 13.9, Neutrophils (%) (Auto) 47.1, Lymphocytes (%) (Auto) 37.9, Monocytes (%) (Auto) 10.4 H, Eosinophils (%) (Auto) 3.9 H, Basophils (%) (Auto) 0.5, Neutrophils # (Auto) 1.9, Lymphocytes # (Auto) 1.6, Monocytes # (Auto) 0.4, Eosinophils # (Auto) 0.2, Basophils # (Auto) 0.0, Calcium Level 8.8 Vital Signs Date Time Temp Pulse Resp B/P (MAP) Pulse Ox O2 Delivery O2 Flow Rate FiO2 07/02/19 08:11 117/65 07/02/19 08:00 79 07/02/19 06:00 97.3 18 100 I&O- Last 24 Hours up to 6 AM 07/02/19 06:00 Intake Total 1980 ml Balance 1980 ml LIBBY FLORES MD Jul 02, 2019 10:47
[2019-07-02] MEDS: ACETAMINOPHEN 500 MG TAB PO PRN ×2 (16:58→20:30)
[2019-07-02] MEDS: ATORVASTATIN 20 MG TAB PO SCH (20:30)
[2019-07-02] MEDS: LEVEMIR (INSULIN DETEMIR) 1 UNITS/0.01ML SC SCH (20:31)
[2019-07-02 22:00] VITALS: BP 122/77
[2019-07-03] MEDS: VANCOMYCIN HCL 1,000 MG, VIAL MATE ADAPTER 1 EACH in D5W 250 ML IV SCH ×4 (00:30→23:07)
[2019-07-03 06:00] VITALS: BP 115/59
[2019-07-03 06:45] LABS: BASO % 0.5 % (0.0-1.0); EOS # 0.2 10^3/uL (0.0-0.5); EOS % 2.9 % (0.0-3.0); HEMOGLOBIN 12.2 g/dl (12.0-15.5); LYMPH # 1.9 10^3/uL (1.5-5.0); MEAN CORPUSCULAR HGB CONC 32.1 g/dl (32.0-36.5); MEAN CORPUSCULAR VOLUME 87.4 fl (80.0-96.0); MONO # 0.4 10^3/uL (0.0-0.8); MONO % 7.2 % (0.0-5.0); NEUTROPHILS # 3.1 10^3/uL (1.5-8.5); NEUTROPHILS % 55.2 % (36.0-66.0); PLATELET COUNT, AUTOMATED 210 10^3/uL (150-450); RED BLOOD COUNT 4.35 10^6/uL (4.00-5.40); WHITE BLOOD COUNT 5.5 10^3/uL (4.0-10.0)
[2019-07-03 07:09] LABS: BLOOD UREA NITROGEN 20 MG/DL (7-18); CARBON DIOXIDE LEVEL 25 MEQ/L (21-32); CHLORIDE LEVEL 102 MEQ/L (98-107); CREATININE FOR GFR 0.96 MG/DL (0.55-1.30); GLOMERULAR FILTRATION RATE > 60.0 (>58); GLUCOSE, FASTING 282 MG/DL (70-100); POTASSIUM SERUM 4.3 MEQ/L (3.5-5.1); SODIUM LEVEL 134 MEQ/L (136-145)
[2019-07-03] MEDS: HumaLOG INSULIN (NovoLOG) PER UNIT SC SCH ×4 (08:23→20:58)
[2019-07-03] MEDS: LISINOPRIL 20 MG TAB PO SCH (08:23)
[2019-07-03] MEDS: ENOXAPARIN 40 MG/0.4 ML SYRINGE (J1650) SC SCH (08:23)
[2019-07-03] MEDS: MUPIROCIN 2% OINT 22 GM TUBE TOP SCH ×2 (08:24→20:58)
[2019-07-03 14:00] VITALS: BP 124/69
--- NOTE | 2019-07-03 15:19 | IPNPDOC ---
Text Note Date of Service The patient was seen on 07/03/19. NOTE -Feels well, no complaints, awaiting surgery tomorrow ROS: Reviewed. Grossly normal 12 point ROS. Objective: Vitals: Please see below General appearance: Conversant. No distress. Eyes: PERRLA, EOMI ENT: clear posterior oropharynx Lungs: CTAB without wheezing, rales or rhonchi Heart: RRR, s1s2, no murmur Abdomen: Soft, baseline distention per patient, nontender. No palpable masses. Right foot: Dressed, mild edema of the bandaged foot, dressing c/d/i Extremities: No LE edema, warm and well perfused Labs: see below Imagin06/30/2019: MRI of right foot: 1. at the plantar aspect of the foot there is a ulceration with a draining sinus. The sinus communicates with fluid surrounding the first metatarsal phalangeal joints consistent with infectious synovitis and abscess formation of the joint. This tract also communicates with multiple small areas of abscess in the soft tissues plantar aspect of the foot. 2. Bone loss of the distal end of the first metatarsal is consistent with changes of osteomyelitis. Reactive change in bone throughout the first metatarsal. 3. Small wound at the plantar aspect of the foot second metatarsal and prominent scarring. 06/30/2019: R foot XR: Forefoot swelling. Postoperative changes. No acute bony erosive change. There is evidence of an ulcer in the ball of the foot on the volar soft tissues. Assessment: 48 yo W with diabetes c/b neuropathy, hypertension, hyperlipidemia, who was a direct admit from her anesthesiologist attending's office, Dr. Carroll, diabetic foot ulcer, unresponsive to outpatient therapy after trial of 2 courses of Augmentin and later bactrim with plan for IV antibiotis as well as investigation of depth of infection, now on vancomycin given prior history of MRSA with MRI showing small areas of abscess formation and osteomyelitis who is pending transmetatarsal amputation tomorrow (Wednesday 07/04) with Dr. Carroll. Plan 1.Diabetic foot ulcer: -Imaging showing small abscess and osteomyelitis, anesthesiologist attending onboard, appreciate pending recs -ID was consulted by podiatry, appreciate recs --> switched from ceftaroline to vanc -Podiatry onboard, scheduled for Thursday for a transmetatarsal amputation. She w ill be nothing by mouth after breakfast on Thursday morning. -Held her Lovenox ppx for surgery tomorrow 2. Hypertension. -Continue with lisinopril 20 mg daily. 3. Hyperlipidemia. -Continue atorvastatin at her current outpatient dose. 4. Diabetes. -Continue sliding scale of insulin with fingerstick blood -Increase Levemir QHS to 20U in the setting of hyperglcemia -consistent carbohydrate diet DVT ppx: Lovenox 40 subcutaneous daily, held after this AM dose for surgery tomorrow Dispo: Inpatient, pending surgery on 07/04 VS,Perez, I+O VS, Perez, I+O Laboratory Tests 07/03/19 06:28 Red Blood Count 4.35, Mean Corpuscular Volume 87.4, Mean Corpuscular Hemoglobin 28.0, Mean Corpuscular Hemoglobin Concent 32.1, Red Cell Distribution Width 13.6, Neutrophils (%) (Auto) 55.2, Lymphocytes (%) (Auto) 34.0, Monocytes (%) (Auto) 7.2 H, Eosinophils (%) (Auto) 2.9, Basophils (%) (Auto) 0.5, Neutrophils # (Auto) 3.1, Lymphocytes # (Auto) 1.9, Monocytes # (Auto) 0.4, Eosinophils # (Auto) 0.2, Basophils # (Auto) 0.0, Calcium Level 9.0 Vital Signs Date Time Temp Pulse Resp B/P (MAP) Pulse Ox O2 Delivery O2 Flow Rate FiO2 07/03/19 14:00 97.4 90 18 124/69 (87) 97 I&O- Last 24 Hours up to 6 AM 07/03/19 05:59 Intake Total 940 ml Balance 940 ml LIBBY FLORES MD Jul 03, 2019 15:19
[2019-07-03 20:00] VITALS: BP 125/76
[2019-07-03] MEDS: ATORVASTATIN 20 MG TAB PO SCH (20:56)
[2019-07-03] MEDS: ACETAMINOPHEN 500 MG TAB PO PRN (20:57)
[2019-07-03] MEDS: LEVEMIR (INSULIN DETEMIR) 1 UNITS/0.01ML SC SCH (20:57)
[2019-07-04] VITALS (8 sets, daily range): BP systolic 95–128; BP diastolic 54–68
[2019-07-04 07:14] LABS: BASO % 0.5 % (0.0-1.0); EOS # 0.2 10^3/uL (0.0-0.5); EOS % 2.7 % (0.0-3.0); HEMATOCRIT 36.9 % (36.0-47.0); LYMPH # 2.3 10^3/uL (1.5-5.0); LYMPH % 40.5 % (24.0-44.0); MEAN CORPUSCULAR HEMOGLOBIN 28.1 pg (27.0-33.0); MEAN CORPUSCULAR HGB CONC 32.5 g/dl (32.0-36.5); MEAN CORPUSCULAR VOLUME 86.4 fl (80.0-96.0); MONO # 0.4 10^3/uL (0.0-0.8); MONO % 7.3 % (0.0-5.0); NEUTROPHILS # 2.7 10^3/uL (1.5-8.5); NEUTROPHILS % 48.8 % (36.0-66.0); PLATELET COUNT, AUTOMATED 200 10^3/uL (150-450); RED BLOOD COUNT 4.27 10^6/uL (4.00-5.40); WHITE BLOOD COUNT 5.6 10^3/uL (4.0-10.0)
[2019-07-04 07:35] LABS: BLOOD UREA NITROGEN 14 MG/DL (7-18); CALCIUM LEVEL 8.9 MG/DL (8.5-10.1); CARBON DIOXIDE LEVEL 25 MEQ/L (21-32); CHLORIDE LEVEL 102 MEQ/L (98-107); CREATININE FOR GFR 0.82 MG/DL (0.55-1.30); GLOMERULAR FILTRATION RATE > 60.0 (>58); GLUCOSE, FASTING 254 MG/DL (70-100); POTASSIUM SERUM 4.1 MEQ/L (3.5-5.1); SODIUM LEVEL 135 MEQ/L (136-145)
--- NOTE | 2019-07-04 07:59 | PHACANCOPD ---
PHARMACY VANCOMYCIN DOSING Pt Demographics Demographics Patient Age:48 , Weight:87.500 , Gender: female Adjusted Body Weight Date: 07/01/19, Adjusted Body Weight: [87.5] Kg Events Past 24 Hours Events Past 24 Hours: NO: Dialysis, Diuretic Therapy, Change in CrCl, Fever, Elevation in WBC, Pending Diagnostics, Pending Procedures, Other Vancomycin Vancomycin indication: SUSPECTED MRSA, PATIENT GREW IN THE PAST Vancomycin Target Ranges: 15-20 mcg/ml Vancomycin Load Y/N: Yes Load Dose Date Time Vancomycin Load Dose: 2G Date: 07/01/19 Time: 1500 Vancomycin Dose Date: 07/01/19. Current Vancomycin Dose: [1G Q8H] Intermittent Dosing?: No Labs Labs Vital Signs Label Value Date Time Temperature Source Temporal 06/30/19 1632 Temperature Source Temporal 06/30/19 2000 Patient Temperature 97.6 degrees F 07/04/19 0500 Temperature Source Temporal 07/04/19 0500 Item Value Date Time Creatinine 0.96 MG/DL 07/03/19 0628 Creatinine 0.82 MG/DL 07/04/19 0648 Vancomycin Level Trough 16.7 UG/ML 07/02/19 1529 Vancomycin Level Trough 19.0 UG/ML 07/04/19 0648 Creatinine Clearance Date:07/01/19. Creatinine Clearance: . Assessment and Plan Maintaining Current Dose?: Yes Reason for dose change: Change in serum Cr Pharmacist Note Pharmacist Note Date: 07/04-The patient's renal function improved; SrCr= 0.82 and CrCl= 74.7. This morning's trough level came back at 19, patient has reached steady state. We are going to keep the patient's dose/ interval the same and we will continue to monitor and adjust doses as necessary. 07/01/19. Pharmacist note: Patient being treated for a diabetic foot ulcer that has infiltrated the bone tissue. Patient has been treated for a confirmed MRSA infection at our facility earlier this year 12/2018 as well as 06/2019. SrCr= .87 and CrCl= 82.9. Loading dose of 2g is being given 07/01/19 at 1500, followed by a maintenance dose of 1g q8h. Will continue to monitor and adjust doses as necessary. ANICETO HUNTER, PHARMACY Jul 04, 2019 07:59
[2019-07-04] MEDS: VANCOMYCIN HCL 1,000 MG, VIAL MATE ADAPTER 1 EACH in D5W 250 ML IV SCH ×3 (08:57→23:01)
[2019-07-04] MEDS: HumaLOG INSULIN (NovoLOG) PER UNIT SC SCH ×4 (08:58→19:57)
[2019-07-04] MEDS: MUPIROCIN 2% OINT 22 GM TUBE TOP SCH ×2 (08:58→20:24)
[2019-07-04] MEDS: LISINOPRIL 20 MG TAB PO SCH (08:58)
[2019-07-04] MEDS ORDERED: BUPIVACAINE HCL 0.5% 30 ML VIAL As Ordered ONE (14:20)
[2019-07-04] MEDS ORDERED: LIDOCAINE 2% MDV 20 ML VIAL As Ordered ONE (14:20)
[2019-07-04 16:13] LABS: C REACTIVE PROTEIN QUANTITATIV 0.56 MG/DL (0.00-0.30)
[2019-07-04] MEDS ORDERED: MIDAZOLAM INJ 2 MG/2 ML VIAL (J2250) As Ordered ONE (16:43)
[2019-07-04] MEDS ORDERED: fentaNYL 100 MCG/2 ML INJECTION (J3010) As Ordered ONE (16:43)
[2019-07-04] MEDS ORDERED: PROPOFOL 200 MG/20 ML VIAL As Ordered ONE ×3 (16:44→18:10)
[2019-07-04] MEDS ORDERED: LIDOCAINE 2% INJ 100 MG/5 ML SDV (FOR ANES.) As Ordered ONE (16:44)
[2019-07-04] MEDS ORDERED: ONDANSETRON 4MG/2ML VIAL (J2405) As Ordered ONE (16:44)
[2019-07-04] MEDS ORDERED: VANCOMYCIN 1000 MG/20 ML VIAL (J3370) As Ordered ONE (16:54)
[2019-07-04] MEDS ORDERED: PHENYLephrine HCL 500 MCG/5 ML (100MCG/ML) SYRINGE (J2370) As Ordered ONE (17:58)
[2019-07-04] MEDS ORDERED: PHENYLEPHRINE INJ 10MG/ML VIAL (J2370) As Ordered ONE (18:04)
--- NOTE | 2019-07-04 18:14 | IPNPDOC ---
Text Note Date of Service The patient was seen on 07/04/19. NOTE -Feels well, anxious about surgery today. Otherwise no complaints ROS: Reviewed. Grossly normal 12 point ROS. Objective: Vitals: Please see below General appearance: NAD Eyes: PERRLA, EOMI ENT: clear posterior oropharynx Lungs: CTAB without wheezing, rales or rhonchi Heart: RRR, s1s2, no murmur Abdomen: Soft, baseline distention per patient, nontender. No palpable masses. Right foot: Dressed, edematous bandaged foot, dry, misaligned toes, bandage with some dried bloody discharge. Extremities: No LE edema, warm and well perfused Labs: see below Imagin06/30/2019: MRI of right foot: 1. at the plantar aspect of the foot there is a ulceration with a draining sinus. The sinus communicates with fluid surrounding the first metatarsal phalangeal joints consistent with infectious synovitis and abscess formation of the joint. This tract also communicates with multiple small areas of abscess in the soft tissues plantar aspect of the foot. 2. Bone loss of the distal end of the first metatarsal is consistent with changes of osteomyelitis. Reactive change in bone throughout the first metatarsal. 3. Small wound at the plantar aspect of the foot second metatarsal and prominent scarring. 06/30/2019: R foot XR: Forefoot swelling. Postoperative changes. No acute bony erosive change. There is evidence of an ulcer in the ball of the foot on the volar soft tissues. 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 Carroll, diabetic foot ulcer, unresponsive to outpatient therapy after trial of 2 courses of Augmentin and later bactrim with plan for IV antibiotis as well as investigation of depth of infection, now on vancomycin given prior history of MRSA with MRI showing small areas of abscess formation and osteomyelitis who is pending transmetatarsal amputation today with Dr. Carroll. Plan 1.Diabetic foot ulcer: -Imaging showing small abscess and osteomyelitis, vegetable ii farmworker onboard, appreciate pending recs -ID was consulted by podiatry, appreciate recs, on vanc -Podiatry onboard, transmetatarsal amputation this afternoon. -Held her Lovenox ppx for surgery 2. Hypertension. -Continue with lisinopril 20 mg daily. 3. Hyperlipidemia. -Continue atorvastatin at her current outpatient dose. 4. Diabetes. -Continue sliding scale of insulin with fingerstick blood -Levemir QHS to 20U -NPO after breakfast till surgery DVT ppx: Lovenox 40 subcutaneous daily, held for surgery Dispo: Inpatient, pending surgery today VS,Fishbone, I+O VS, Fishbone, I+O Laboratory Tests 07/04/19 06:48 Red Blood Count 4.27, Mean Corpuscular Volume 86.4, Mean Corpuscular Hemoglobin 28.1, Mean Corpuscular Hemoglobin Concent 32.5, Red Cell Distribution Width 13.6, Neutrophils (%) (Auto) 48.8, Lymphocytes (%) (Auto) 40.5, Monocytes (%) (Auto) 7.3 H, Eosinophils (%) (Auto) 2.7, Basophils (%) (Auto) 0.5, Neutrophils # (Auto) 2.7, Lymphocytes # (Auto) 2.3, Monocytes # (Auto) 0.4, Eosinophils # (Auto) 0.2, Basophils # (Auto) 0.0, Calcium Level 8.9 Vital Signs Date Time Temp Pulse Resp B/P (MAP) Pulse Ox O2 Delivery O2 Flow Rate FiO2 07/04/19 14:00 97.1 87 18 104/60 (75) 98 I&O- Last 24 Hours up to 6 AM 07/04/19 06:00 Intake Total 1320 ml Output Total 0 ml Balance 1320 ml LIBBY FLORES MD Jul 04, 2019 18:14
[2019-07-04] MEDS ORDERED: MORPHINE 10 MG/ML 1ML VIAL (J2270) IV PRN (19:15)
[2019-07-04] MEDS ORDERED: LR 1,000 ML IV SCH (19:15)
[2019-07-04] MEDS ORDERED: PERCOCET 5MG/325MG TAB PO PRN (19:15)
[2019-07-04] MEDS ORDERED: METOCLOPRAMIDE INJ 10MG/2ML VIAL (J2765) IV PRN (19:15)
[2019-07-04] MEDS ORDERED: ONDANSETRON 4MG/2ML VIAL (J2405) IV PRN (19:15)
--- NOTE | 2019-07-04 19:27 | REP ---
Right foot three views postoperative study: Comparison is 06/30/2019. There has been amputation of the great toe, second digit, and fifth digit at the proximal shafts of the metatarsals. Resections at the neck of the third digit metatarsal and proximal shaft of the fourth digit metatarsal are similar to the prior study. There are radiopaque pledgets in the soft tissues at the distal tips of the resected metatarsal shafts. Calcaneal plantar and Achilles spurs are incidentally identified, unchanged. Electronically Signed by Peter Barnett MD 07/04/2019 07:18 P
[2019-07-04] MEDS: LEVEMIR (INSULIN DETEMIR) 1 UNITS/0.01ML SC SCH (20:09)
[2019-07-04] MEDS: ATORVASTATIN 20 MG TAB PO SCH (20:09)
--- NOTE | 2019-07-04 20:44 | CR ---
DATE OF CONSULTATION: 07/01/2019 CONSULTATION REPORT FOR: Dr. Carroll REASON FOR CONSULTATION: For evaluation of chronic osteomyelitis of the right foot with culture positive for methicillin-resistant Staphylococcus aureus (MRSA). HISTORY OF PRESENT ILLNESS: Willa Bang is a 48-year-old female with a history of insulin-dependent diabetes with moderate compliance, hemoglobin A1c of over 9 who presents with a nonhealing diabetic right foot ulcer for the past four months. The patient has had problems with the right foot since November of 2018. She underwent a ray amputation of the fourth toe, multiple debridements done but this current wound opened up in February 2019 and has not healed. She was treated with a couple of courses of Augmentin, most recently had been on Bactrim for culture positive for methicillin-resistant Staphylococcus aureus (MRSA) without any improvement. She had an MRI done and was found to have osteomyelitis with a large joint effusion in right big toe and therefore is admitted for IV antibiotics and transmetatarsal amputation to be done by DR Flowers. She has a low-grade fever. She has some induration along the medial aspect of the foot which is new for. Her temperature maximum is 100. No chills. No nausea, vomiting, diarrhea. No abdominal pain. No chest pain or shortness of breath. PAST MEDICAL HISTORY: Significant for: 1. Insulin-dependent diabetes with multiple diabetic foot infection of that right foot and amputation of the fourth toe and partial resection of the third metatarsal. 2. Hypertension. 3. Diabetic retinopathy with retinal bleeding. 4. Microalbuminuria. 5. History of methicillin-resistant Staphylococcus aureus (MRSA) infection of the right foot, culture positive 06/21/2019. FAMILY HISTORY: Mother is diabetic, end-stage renal disease and heart disease. SOCIAL HISTORY: She does not smoke, drink, or use any drugs. She works as a juvenile corrections officer. She lives with her mother and they recently moved to a new house. ALLERGIES: No known drug allergies. MEDICATIONS: - lisinopril 10 mg daily - atorvastatin 20 mg daily - sliding scale insulin - gabapentin 300 mg four times a day - metformin 1000 mg twice daily - Trulicity 0.7 mg weekly - Basaglar 50 units daily REVIEW OF SYSTEMS: She denies any polyuria or dysuria. No chest pain. No shortness of breath. No nausea, vomiting, diarrhea. No upper or lower extremity weakness. She has some numbness in her feet, some blurry vision, has not seen her eye doctor recently. PHYSICAL EXAMINATION: She is a healthy-looking female in no acute distress. VITAL SIGNS: Temperature is 97.3, pulse 105, respirations 18, blood pressure 127/71, oxygen saturation 99% on room air. HEART: Normal S1, S2. No murmurs, rubs or gallops. LUNGS: Clear. No wheezes, rales, or rhonchi. ABDOMEN: Soft, nontender, obese. No hepatosplenomegaly. BACK: No costovertebral angle (CVA) or lumbosacral tenderness. Oropharynx is clear. Poor dentition. No thrush. EXTREMITIES: No clubbing, cyanosis or edema. Left foot has no rashes. No diabetic foot ulcer. Right foot has two ulcers, one 3 cm on the ball of the foot over the first metatarsal and the second overlying the third metatarsal measuring 2 cm in diameter. The ulcer that is over the first metatarsal probes down to the bone and the depth of the wound measures about 5-6 cm with purulent discharge. The ulcer over the third metatarsal is 2 cm and probes down by 1 cm, not as much discharge. She has surrounding cellulitis and erythema of the plantar aspect of the foot. NEUROLOGIC: Alert, oriented times three. Motor strength, upper and lower extremity normal, slightly decreased sensation of the feet, normal proprioception. Foot MRI with and without contrast shows loculation fluid at the joint consistent with infectious synovitis and abscess along the first metatarsal with fluid tracking in the soft tissues, multiple small round abscess along the soft issues, first metatarsal osteomyelitis. There has been removal of most of the third and fourth metatarsal and fourth toe. IMPRESSION: Willa is a 48-year-old female who was admitted with a diabetic foot infection with osteomyelitis of the first toe and infectious synovitis with culture positive for methicillin-resistant Staphylococcus aureus (MRSA). The patient has failed outpatient antibiotic therapy, most recently with Bactrim. She is admitted for a transmetatarsal amputation to be done by Dr. Carroll on Thursday. She was started by primary care team on IV ceftaroline for MRSA infection which is too broad-spectrum. The patient does not have a polymicrobial infection and would de-escalate to vancomycin. PLAN: Discontinue IV ceftaroline, switch to IV vancomycin with a 2-gram loading dose and then 1 gram every 8-12 hours depending on vancomycin trough. Keep vancomycin trough between 15 and 20. The patient will be on IV antibiotics perioperatively. Depending on operative findings, we will decide length of IV antibiotics versus oral antibiotics. If the patient has a transmetatarsal amputation,and there is persistent infection the patient may not need six weeks of antibiotic therapy VS 2 weeks if all infected source removed Case has been discussed with Dr. Carroll who will be doing the surgery Thursday after 05:00. TRACY
[2019-07-05 04:00] VITALS: BP 122/68
[2019-07-05] MEDS: ACETAMINOPHEN 500 MG TAB PO PRN (05:15)
[2019-07-05] MEDS: ENOXAPARIN 40 MG/0.4 ML SYRINGE (J1650) SC SCH (05:15)
[2019-07-05 07:05] LABS: BASO % 0.4 % (0.0-1.0); EOS # 0.1 10^3/uL (0.0-0.5); EOS % 1.8 % (0.0-3.0); HEMATOCRIT 32.5 % (36.0-47.0); HEMOGLOBIN 10.5 g/dl (12.0-15.5); LYMPH # 1.9 10^3/uL (1.5-5.0); LYMPH % 23.7 % (24.0-44.0); MEAN CORPUSCULAR HEMOGLOBIN 27.9 pg (27.0-33.0); MEAN CORPUSCULAR HGB CONC 32.3 g/dl (32.0-36.5); MEAN CORPUSCULAR VOLUME 86.4 fl (80.0-96.0); MONO # 0.6 10^3/uL (0.0-0.8); MONO % 7.4 % (0.0-5.0); NEUTROPHILS # 5.2 10^3/uL (1.5-8.5); NEUTROPHILS % 66.3 % (36.0-66.0); PLATELET COUNT, AUTOMATED 187 10^3/uL (150-450); RED BLOOD COUNT 3.76 10^6/uL (4.00-5.40); WHITE BLOOD COUNT 7.8 10^3/uL (4.0-10.0)
[2019-07-05 07:32] LABS: BLOOD UREA NITROGEN 16 MG/DL (7-18); CALCIUM LEVEL 8.9 MG/DL (8.5-10.1); CARBON DIOXIDE LEVEL 25 MEQ/L (21-32); CHLORIDE LEVEL 102 MEQ/L (98-107); CREATININE FOR GFR 0.82 MG/DL (0.55-1.30); GLOMERULAR FILTRATION RATE > 60.0 (>58); GLUCOSE, FASTING 277 MG/DL (70-100); POTASSIUM SERUM 4.3 MEQ/L (3.5-5.1); SODIUM LEVEL 134 MEQ/L (136-145)
--- NOTE | 2019-07-05 08:09 | IPN ---
DATE: 07/04/2019 Willa has no complaint except for some phlebitis from her IV and therefore her IV site was changed. She has no nausea, vomiting, diarrhea, abdominal pain, fever or chills. On physical exam, temperature is 97.1, pulse 87, respirations 18, blood pressure 104/60, O2 sat 98% on room air. Heart: Normal S1 and S2. No murmurs. Lungs are clear. Abdomen: Obese, soft, nontender. Extremities: No edema. Right foot is bandaged. I did not remove the dressing as the patient is going to the OR today. She has two diabetic foot ulcers over the first and third metatarsals with purulent drainage. Labs: White count is 5.6, hemoglobin 12, hematocrit 36.9, platelets 200, 49% neutrophils, 40% lymphocytes. Sodium 135, potassium 4.1, chloride 102, bicarb 25, BUN 14, creatinine 0.82, glucose 254, calcium 8.9. CRP is 0.56 down from 2.27. Vancomycin trough 19. Medications: Vancomycin 1 gram IV every 8 hours. IMPRESSION: 1. Chronic osteomyelitis of the right foot with methicillin-resistant Staphylococcus aureus (MRSA), on IV vancomycin with appropriate trough level. CRP has improved. Decreased purulence. The patient is scheduled for transmetatarsal amputation today. 2. Insulin dependent diabetes, poorly controlled. Encourage better compliance with diabetic diet and insulin. Her HbA1c was 9.7. PLAN: Transmetatarsal amputation. Continue IV vancomycin. The patient probably could be discharged home on oral antibiotic if all the infected bone will be surgically resected. She probably could be discharged home with by mouth linezolid for 2 weeks postoperatively. The case has been discussed with Dr. Carroll who is taking her to the OR [facility].
[2019-07-05] MEDS: MUPIROCIN 2% OINT 22 GM TUBE TOP SCH ×2 (08:34→21:00)
[2019-07-05] MEDS: LISINOPRIL 20 MG TAB PO SCH (08:36)
[2019-07-05] MEDS: VANCOMYCIN HCL 1,000 MG, VIAL MATE ADAPTER 1 EACH in D5W 250 ML IV SCH ×2 (08:36→16:33)
[2019-07-05] MEDS: HumaLOG INSULIN (NovoLOG) PER UNIT SC SCH ×4 (08:37→21:43)
[2019-07-05] MEDS ORDERED: LINE1TAB PO (11:11)
[2019-07-05] MEDS: PERCOCET 5MG/325MG TAB PO PRN ×2 (11:26→21:46)
[2019-07-05 14:00] VITALS: BP 125/73
--- NOTE | 2019-07-05 14:11 | RO ---
DATE OF PROCEDURE: 07/04/2019 PREPROCEDURE DIAGNOSIS: Osteomyelitis 1st metatarsal. POSTPROCEDURE DIAGNOSIS: Osteomyelitis 1st metatarsal. PROCEDURE: Transmetatarsal amputation right foot. SURGEON: Dr. Bentley Carroll. MOTOR REBUILDER: None. ANESTHESIA: Local monitored anesthesia care (MAC). ESTIMATED BLOOD LOSS: 200 mL. HEMOSTASIS: None. IMPLANTABLES: Fifteen 5 mm vancomycin impregnated beads. DRAINS UTILIZED: TLS drain. DESCRIPTION OF PROCEDURE: On 07/04/2019, this 48-year-old white female was taken from her hospital room to the operating room, placed on the operating room table in supine position. Following the induction of IV sedation of local and regional anesthesia, attention was directed to the patient's right foot where there was noted to be two ulcerations on the planar surface of the foot with two metatarsal ray resections. Therefore, it was elected to do a transmetatarsal amputation. At this time, an incision was placed just proximal to the toes on the dorsal surface, the plantar surface was a curvilinear incision just proximal to the ulcerations. The incision was carried straight to bone. All bleeders, as encountered, were either electrocoagulated or tied with #3-0 Monocryl. A flap was then created at the periosteal interface and a plane was established starting at the first metatarsal neck staggering across the foot. Intraoperative C-arm imagery was utilized to verify placement of the osteotomies with appropriate stepdown. The wound was flushed with 3 liters of dilute vancomycin solution with a low pressure pulsed lavaged system. Care was taken to ensure all bleeders were electrocoagulated. 15 5 mm vancomycin beads were the placed into the wound with a TLS drain and then the wound was closed with #2-0 nylon suture in a simple interrupted fashion. Sterile dressing was applied consistent with adaptic, 4 x 4s, 4 x 4 splints and Kerlix followed by Coban. Patient having apparently tolerated the surgical procedure well, was taken from the operating room (OR) to the recovery room for further monitoring by the anesthesia department. The TLS drain was functioning satisfactorily. [facility]
--- NOTE | 2019-07-05 17:50 | IPN ---
DATE: 07/05/2019 SUBJECTIVE: The patient remained afebrile with no chills overnight. Despite low blood pressure at 2200 of 95/54, the patient denies any lightheadedness or dizziness. She complains of pain 6/10 at the bedside at rest. She had been given Tylenol overnight. Currently on Percocet one tablet every six hours for pain. Per Dr. Kelly Juan, the patient may continue on Zyvox as outpatient for two weeks. The patient has not been evaluated by physical therapy and is still awaiting clearance and pain control. OBJECTIVE: PHYSICAL EXAMINATION: Temperature 97.4, pulse 88, respiratory rate 18, blood pressure 122/68, 98% on room air. GENERAL: Awake, alert and oriented times three, answering questions appropriately. LUNGS: Clear to auscultation. No wheezing, rales, or rhonchi. HEART: S1, S2, sinus rhythm. ABDOMEN: Soft, nontender, nondistended. Positive bowel sounds. No rebound or guarding. EXTREMITIES: The patient has bandage of the right foot with drainage that remains bloody. HOSPITAL MEDICATIONS: - Percocet 1-2 tablets every six hours for pain - Lovenox 40 subcutaneously daily - Levemir insulin 26 at bedtime - Bactroban - vancomycin - lisinopril - Lispro insulin sliding scale - Lipitor - hypoglycemic protocol - Tylenol 1 gram every six hours as needed for pain or fever LABORATORY DATA: White count 7.8, hemoglobin 10, hematocrit 32, platelet count 187. Sodium 134, potassium 4.3, chloride 102, bicarbonate 25, BUN 16, creatinine 0.82, glucose of 277. ASSESSMENT AND PLAN: This is a 48-year-old female who presented to the emergency room with history of diabetes, went for a left metatarsal transmetatarsal amputation due to chronic osteomyelitis of the right foot with methicillin-resistant Staphylococcus aureus (MRSA) on IV vancomycin currently but may be discharged on Zyvox. CURRENT ISSUES: 1. Chronic osteomyelitis of the right foot with methicillin-resistant Staphylococcus aureus (MRSA). Currently on IV vancomycin. Infectious disease (ID) recommended Zyvox for two weeks postoperatively. The patient needs better pain control and physical therapy evaluation prior to discharge home. 2. Type 2 diabetes, uncontrolled. We will increase the patient's Levemir insulin. 3. Dyslipidemia, on chronic statins. MTDD
[2019-07-05 20:00] VITALS: BP 129/65
[2019-07-05] MEDS ORDERED: LEVEMIR (INSULIN DETEMIR) 1 UNITS/0.01ML SC SCH (21:00)
[2019-07-05] MEDS: ATORVASTATIN 20 MG TAB PO SCH (21:42)
[2019-07-06] MEDS: VANCOMYCIN HCL 1,000 MG, VIAL MATE ADAPTER 1 EACH in D5W 250 ML IV SCH ×3 (00:02→16:28)
[2019-07-06 00:38] VITALS: BP 113/66
[2019-07-06 02:00] VITALS: BP 98/59
[2019-07-06 06:00] VITALS: BP 100/60
[2019-07-06] MEDS: ENOXAPARIN 40 MG/0.4 ML SYRINGE (J1650) SC SCH (06:19)
[2019-07-06 06:57] LABS: BASO % 0.7 % (0.0-1.0); EOS # 0.2 10^3/uL (0.0-0.5); EOS % 2.8 % (0.0-3.0); HEMATOCRIT 30.8 % (36.0-47.0); LYMPH % 33.2 % (24.0-44.0); MEAN CORPUSCULAR HEMOGLOBIN 28.4 pg (27.0-33.0); MEAN CORPUSCULAR HGB CONC 32.5 g/dl (32.0-36.5); MEAN CORPUSCULAR VOLUME 87.5 fl (80.0-96.0); MONO # 0.5 10^3/uL (0.0-0.8); MONO % 8.3 % (0.0-5.0); NEUTROPHILS # 3.4 10^3/uL (1.5-8.5); NEUTROPHILS % 54.5 % (36.0-66.0); PLATELET COUNT, AUTOMATED 183 10^3/uL (150-450); RED BLOOD COUNT 3.52 10^6/uL (4.00-5.40); WHITE BLOOD COUNT 6.2 10^3/uL (4.0-10.0)
[2019-07-06 07:23] LABS: BLOOD UREA NITROGEN 13 MG/DL (7-18); CALCIUM LEVEL 8.8 MG/DL (8.5-10.1); CARBON DIOXIDE LEVEL 26 MEQ/L (21-32); CHLORIDE LEVEL 104 MEQ/L (98-107); CREATININE FOR GFR 0.77 MG/DL (0.55-1.30); GLOMERULAR FILTRATION RATE > 60.0 (>58); GLUCOSE, FASTING 265 MG/DL (70-100); SODIUM LEVEL 137 MEQ/L (136-145)
[2019-07-06] MEDS ORDERED: LEVEMIR (INSULIN DETEMIR) 1 UNITS/0.01ML SC SCH (09:00)
[2019-07-06] MEDS: MUPIROCIN 2% OINT 22 GM TUBE TOP SCH ×2 (09:00→21:35)
[2019-07-06] MEDS: HumaLOG INSULIN (NovoLOG) PER UNIT SC SCH ×4 (09:17→21:00)
[2019-07-06] MEDS: LISINOPRIL 20 MG TAB PO SCH (09:19)
[2019-07-06] MEDS: PERCOCET 5MG/325MG TAB PO PRN ×2 (09:20→16:40)
[2019-07-06 09:29] LABS: VANCOMYCIN RANDOM 18.2 UG/ML
[2019-07-06] MEDS ORDERED: LEVEMIR (INSULIN DETEMIR) 1 UNITS/0.01ML SC ONE (11:00)
[2019-07-06] MEDS ORDERED: SENOKOT S TAB PO PRN (12:00)
[2019-07-06] MEDS ORDERED: MOM 30ML SUSPENSION UDC PO PRN (12:00)
[2019-07-06] MEDS ORDERED: BISACODYL 5 MG TAB PO PRN (12:00)
--- NOTE | 2019-07-06 12:08 | IPN ---
DATE: 07/06/2019 SUBJECTIVE: The patient complains of pain 3 out of 10 at rest. Currently on Percocet as needed for pain. No fever or chills overnight. OBJECTIVE: PHYSICAL EXAMINATION: VITAL SIGNS: Temperature 97.3, pulse 84, respiratory rate 18, blood pressure 100/60, 100% on room air. GENERAL: Awake, alert, oriented times three. Answering questions appropriately. No respiratory distress. LUNGS: Clear to auscultation. No wheezing, rales or rhonchi. HEART: S1, S2. Sinus rhythm. No murmurs, rubs or gallops. ABDOMEN: Soft, nontender, nondistended. Obese abdomen. Positive bowel sounds. No rebound or guarding. EXTREMITIES: Bandaged right foot. Bandage in place. HOSPITAL MEDICATIONS: - Lisinopril - Levemir insulin - milk of magnesia - Senokot - Dulcolax - metformin - Percocet - Lovenox - Bactroban - vancomycin - Lispro - Lipitor - insulin sliding scale hypoglycemic protocol - acetaminophen ASSESSMENT AND PLAN: This is a 48-year-old female with diabetes, left transmetatarsal amputation due to chronic osteomyelitis. ACTIVE ISSUES: 1. Chronic osteomyelitis of the right foot with methicillin resistant Staphylococcus aureus (MRSA). Currently on IV vancomycin. Zyvox has been approved by the insurance with a copay of $20. Infectious disease recommended two more weeks of Zyvox postoperatively. The patient is still awaiting physical therapy (PT) evaluation. 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 Pain control with Percocet as needed and Tylenol. 2. Type 2 diabetes, uncontrolled. Levemir insulin has been changed to twice a day, she usually takes metformin, which has been resumed here. Her Levemir has been increased and changed to twice a day dosing for better glycemic control. DISPOSITION: Awaiting PT clearance, improved glycemic control, and pain control. [facility]
--- NOTE | 2019-07-06 12:30 | PHACANCOPD ---
PHARMACY VANCOMYCIN DOSING Pt Demographics Demographics Patient Age:48 , Weight:87.500 , Gender: female Adjusted Body Weight Date: 07/01/19, Adjusted Body Weight: [87.5] Kg Events Past 24 Hours Events Past 24 Hours: NO: Dialysis, Diuretic Therapy, Change in CrCl, Fever, Elevation in WBC, Pending Diagnostics, Pending Procedures, Other Vancomycin Vancomycin indication: SUSPECTED MRSA, PATIENT GREW IN THE PAST Vancomycin Target Ranges: 15-20 mcg/ml Vancomycin Load Y/N: Yes Load Dose Date Time Vancomycin Load Dose: 2G Date: 07/01/19 Time: 1500 Vancomycin Dose Date: 07/01/19. Current Vancomycin Dose: [1G Q8H] Intermittent Dosing?: No Labs Labs Item Value Date Time C-Reactive Protein, Quantitative 0.56 MG/DL H 07/04/19 0648 Creatinine 0.82 MG/DL 07/05/19 0651 Creatinine 0.77 MG/DL 07/06/19 0642 Creatinine 0.82 MG/DL 07/04/19 0648 Vancomycin Level Trough 16.7 UG/ML 07/02/19 1529 Vancomycin Level Trough 19.0 UG/ML 07/04/19 0648 Random Vancomycin Level 18.2 UG/ML 07/06/19 0642 Creatinine Clearance Date:07/01/19. Creatinine Clearance: [79.554]. Assessment and Plan Maintaining Current Dose?: Yes Reason for dose change: No Dose Change Pharmacist Note Pharmacist Note Date: 07/06/19- Patient's renal function continues to improve; SrCr= 0.77 and CrCl= 79.554. Patient remains at steady state, verified by a random trough that was drawn at 0642 on 07/06/19, yielding a random trough level of 18.2. We will continue the patients current dose/interval and will continue to monitor and adjust future doses if needed. 07/04-The patient's renal function improved; SrCr= 0.82 and CrCl= 74.7. This morning's trough level came back at 19, patient has reached steady state. We are going to keep the patient's dose/ interval the same and we will continue to monitor and adjust doses as necessary. 07/01/19. Pharmacist note: Patient being treated for a diabetic foot ulcer that has infiltrated the bone tissue. Patient has been treated for a confirmed MRSA infection at our facility earlier this year 12/2018 as well as 06/2019. SrCr= .87 and CrCl= 82.9. Loading dose of 2g is being given 07/01/19 at 1500, followed by a maintenance dose of 1g q8h. Will continue to monitor and adjust doses as necessary. ANICETO HUNTER, PHARMACY Jul 06, 2019 12:30
[2019-07-06] MEDS: metFORMIN (GLUCOPHAGE) 1000 MG TABLET PO SCH ×2 (12:55→18:08)
[2019-07-06 14:49] VITALS: BP 118/73
[2019-07-06] MEDS: ATORVASTATIN 20 MG TAB PO SCH (21:35)
[2019-07-06] MEDS: LEVEMIR (INSULIN DETEMIR) 1 UNITS/0.01ML SC SCH (21:35)
[2019-07-06 22:00] VITALS: BP 114/70
[2019-07-07] MEDS: VANCOMYCIN HCL 1,000 MG, VIAL MATE ADAPTER 1 EACH in D5W 250 ML IV SCH ×2 (00:06→09:17)
[2019-07-07] MEDS: ENOXAPARIN 40 MG/0.4 ML SYRINGE (J1650) SC SCH (05:54)
[2019-07-07 06:00] VITALS: BP 106/59
[2019-07-07 07:17] LABS: BASO # 0.1 10^3/uL (0.0-0.2); BASO % 0.5 % (0.0-1.0); EOS # 0.2 10^3/uL (0.0-0.5); EOS % 2.2 % (0.0-3.0); HEMATOCRIT 30.5 % (36.0-47.0); HEMOGLOBIN 9.7 g/dl (12.0-15.5); LYMPH # 2.4 10^3/uL (1.5-5.0); LYMPH % 26.1 % (24.0-44.0); MEAN CORPUSCULAR HEMOGLOBIN 27.4 pg (27.0-33.0); MEAN CORPUSCULAR HGB CONC 31.8 g/dl (32.0-36.5); MEAN CORPUSCULAR VOLUME 86.2 fl (80.0-96.0); MONO # 0.6 10^3/uL (0.0-0.8); MONO % 6.1 % (0.0-5.0); NEUTROPHILS % 64.3 % (36.0-66.0); PLATELET COUNT, AUTOMATED 223 10^3/uL (150-450); RED BLOOD COUNT 3.54 10^6/uL (4.00-5.40); WHITE BLOOD COUNT 9.3 10^3/uL (4.0-10.0)
[2019-07-07] MEDS: HumaLOG INSULIN (NovoLOG) PER UNIT SC SCH ×2 (07:30→13:14)
[2019-07-07 07:45] LABS: BLOOD UREA NITROGEN 12 MG/DL (7-18); CALCIUM LEVEL 8.8 MG/DL (8.5-10.1); CARBON DIOXIDE LEVEL 25 MEQ/L (21-32); CHLORIDE LEVEL 103 MEQ/L (98-107); CREATININE FOR GFR 0.79 MG/DL (0.55-1.30); GLOMERULAR FILTRATION RATE > 60.0 (>58); GLUCOSE, FASTING 234 MG/DL (70-100); POTASSIUM SERUM 4.4 MEQ/L (3.5-5.1); SODIUM LEVEL 136 MEQ/L (136-145)
[2019-07-07 09:00] VITALS: BP 107/66
[2019-07-07] MEDS ORDERED: LISINOPRIL 10 MG TAB PO SCH (09:00)
[2019-07-07] MEDS: MUPIROCIN 2% OINT 22 GM TUBE TOP SCH (09:00)
[2019-07-07] MEDS: metFORMIN (GLUCOPHAGE) 1000 MG TABLET PO SCH (09:16)
[2019-07-07] MEDS: LEVEMIR (INSULIN DETEMIR) 1 UNITS/0.01ML SC SCH (09:17)
[2019-07-07] MEDS: ACETAMINOPHEN 500 MG TAB PO PRN (09:17)
[2019-07-07 09:20] VITALS: BP 107/66
[2019-07-07] MEDS ORDERED: PROMETHAZINE INJ 25 MG/ML VIAL (J2550) IV PRN (09:45)
[2019-07-07] MEDS ORDERED: PROMETHAZINE INJ 25 MG/ML VIAL (J2550) IV ONE (09:45)
[2019-07-07] MEDS ORDERED: PERCOCET PO (10:31)
[2019-07-07] MEDS ORDERED: SENO8.6T10 PO (10:31)
[2019-07-07] MEDS ORDERED: MUPI2OI TOP (10:31)
[2019-07-07] MEDS ORDERED: OXYC1TAB23 PO (12:49)
[2019-07-07] MEDS ORDERED: BASA100I SC ×2 (16:10→16:12)
--- NOTE | 2019-07-07 19:32 | DSES ---
DATE OF ADMISSION: 06/30/2019 DATE OF DISCHARGE: 07/07/2019 CONSULTANTS: Dr. Kelly Juan, infectious disease. Dr. Carroll, podiatry. PRIMARY DISCHARGE DIAGNOSES: 1. Chronic osteomyelitis of the right foot with methicillin resistant Staphylococcus aureus (MRSA). 2. Poorly controlled insulin dependent diabetes, A1/c of 9.7. 3. Status post transmetatarsal amputation. 4. Obesity, Body Mass Index (BMI) of 34.2. DISCHARGE MEDICATIONS: - linezolid 600 mg twice a day - metyrosine topically twice a day - oxycodone/acetaminophen one tablet every 4 hours as needed - Senokot - atorvastatin 40 mg at night - Lispro 200 units twice a day - metformin 1 gram twice a day - sulfur sulfadiazine topically daily PROCEDURES DURING THIS ADMISSION: 07/04/2019 transmetatarsal amputation of the right foot, 1, 2, 3, 4, 5, removing remaining toes on the right foot by Dr. Carroll. HOSPITAL COURSE: This is a 48-year-old female with a known history of diabetic foot infection of the right foot, amputation of the fourth toe and partial resection of the third metatarsal, diabetic retinopathy with retinal bleeding, methicillin resistant Staphylococcus aureus (MRSA) infection of the right foot, hypertension, micro albuminemia with poor compliance, had an open wound in February 2019 with multiple debridements, which have not healed, treated with Augmentin, Bactrim. Cultures were positive for MRSA. MRI was done showing a large joint effusion of right big toe, admitted for IV antibiotics and transmetatarsal amputation by Dr. Carroll with presenting symptoms of low grade temperature, maximum temperature (t-max) of 100. The patient was placed on intravenous vancomycin. The patient underwent transmetatarsal amputation. Glucose levels were uncontrolled with 237 to 291. Levemir insulin was increased to 15 units subcutaneously twice a day. The patient passed home safety evaluation and was subsequently discharged home. LABORATORIES: On discharge: White count 9.3, hemoglobin 9.7, hematocrit 30, platelet count 223. Sodium 136, creatinine 4.4, chloride 103, bicarbonate 25, BUN 12, creatinine 0.79, glucose of 234. Hemoglobin A1/c of 9.7. Foot MRI on 06/30/2019 at the plantar aspect ulceration with draining sinus communicating with fluid surrounding the first metatarsophalangeal joint consistent with infectious synovitis and abscess formation, communicating with multiple areas of abscess in the soft tissue plantar aspect of the foot, bone loss of distal end of the first metatarsal consistent with osteomyelitis, reactive changes in the bone throughout the first metatarsal. Small wound to the plantar aspect of the foot second metatarsal and prominent scarring. Time spent on discharge: 30 minutes. MTDD
[2019-07-07] MEDS ORDERED: LEVEMIR (INSULIN DETEMIR) 1 UNITS/0.01ML SC SCH (21:00)
== END 2019-07-07 14:55 | disposition home health service (06) | DRG 305 ==
LOC: M MS4PR 16:21 → M MS5PR 07-06 00:35
PROVIDERS: ADMIT Family Medicine; ATTEND General Practice
PROC: 0Y6M0Z5 Detachment at Right Foot, Complete 2nd Ray, Open Approach (ICD-10-PCS; 2019-07-04)
PROC: 0Y6M0Z7 Detachment at Right Foot, Complete 4th Ray, Open Approach (ICD-10-PCS; 2019-07-04)
PROC: 0Y6M0Z8 Detachment at Right Foot, Complete 5th Ray, Open Approach (ICD-10-PCS; 2019-07-04)
PROC: 0Y6M0Z4 Detachment at Right Foot, Complete 1st Ray, Open Approach (ICD-10-PCS; principal; 2019-07-04 16:30)
DX: E11.621 Type 2 diabetes mellitus with foot ulcer (principal); E11.40 Type 2 diabetes mellitus with diabetic neuropathy, unspecified; M86.471 Chronic osteomyelitis with draining sinus, right ankle and foot; E11.65 Type 2 diabetes mellitus with hyperglycemia; L03.115 Cellulitis of right lower limb; I10 Essential (primary) hypertension; L97.516 Non-pressure chronic ulcer of other part of right foot with bone involvement without evidence of necrosis; E78.5 Hyperlipidemia, unspecified; E66.9 Obesity, unspecified; J45.909 Unspecified asthma, uncomplicated; B95.62 Methicillin resistant Staphylococcus aureus infection as the cause of diseases classified elsewhere; Z89.421 Acquired absence of other right toe(s); Z79.4 Long term (current) use of insulin; Z79.899 Other long term (current) drug therapy; Z83.3 Family history of diabetes mellitus; Z68.34 Body mass index [BMI] 34.0-34.9, adult; E11.69 Type 2 diabetes mellitus with other specified complication; E11.319 Type 2 diabetes mellitus with unspecified diabetic retinopathy without macular edema

== ENCOUNTER → 2019-07-21 | Outpatient (REF) | payer BC ==
[~2019-07-21] MED LIST changes: +GABA-843 PO; +HUMA50IN4 SC; +MUPI2OI TOP; +OXYC1TAB23 PO; +PERCOCET PO; +SENO8.6T10 PO
[2019-07-21 13:40] LABS: BASO % 0.1 % (0.0-1.0); EOS # 0.1 10^3/uL (0.0-0.5); EOS % 1.8 % (0.0-3.0); HEMATOCRIT 38.1 % (36.0-47.0); LYMPH # 1.9 10^3/uL (1.5-5.0); LYMPH % 24.4 % (24.0-44.0); MEAN CORPUSCULAR HEMOGLOBIN 28.9 pg (27.0-33.0); MEAN CORPUSCULAR HGB CONC 31.5 g/dl (32.0-36.5); MEAN CORPUSCULAR VOLUME 91.8 fl (80.0-96.0); MONO # 0.5 10^3/uL (0.0-0.8); MONO % 6.9 % (0.0-5.0); NEUTROPHILS # 5.1 10^3/uL (1.5-8.5); NEUTROPHILS % 66.5 % (36.0-66.0); PLATELET COUNT, AUTOMATED 224 10^3/uL (150-450); RED BLOOD COUNT 4.15 10^6/uL (4.00-5.40); WHITE BLOOD COUNT 7.7 10^3/uL (4.0-10.0)
[2019-07-21 13:41] LABS: BLOOD UREA NITROGEN 14 MG/DL (7-18); C REACTIVE PROTEIN QUANTITATIV 1.93 MG/DL (0.00-0.30); CALCIUM LEVEL 9.1 MG/DL (8.5-10.1); CARBON DIOXIDE LEVEL 24 MEQ/L (21-32); CHLORIDE LEVEL 106 MEQ/L (98-107); CREATININE FOR GFR 0.88 MG/DL (0.55-1.30); GLOMERULAR FILTRATION RATE > 60.0 (>58); GLUCOSE, FASTING 175 MG/DL (70-100); POTASSIUM SERUM 4.2 MEQ/L (3.5-5.1); SODIUM LEVEL 138 MEQ/L (136-145)
[2019-07-21 14:01] LABS: ERYTHROCYTE SEDIMENTATION RATE 43 mm/hr (0-20)
== END ==
LOC: M SFHCPLAZ 11:08
PROVIDERS: ATTEND Internal Medicine Infectious Disease
DX: A49.02 Methicillin resistant Staphylococcus aureus infection, unspecified site (principal); E11.29 Type 2 diabetes mellitus with other diabetic kidney complication

== ENCOUNTER → 2019-08-22 | Outpatient (REF) | payer BC ==
[2019-08-22 16:01] LABS: BASO # 0.1 10^3/uL (0.0-0.2); BASO % 0.8 % (0.0-1.0); EOS # 0.2 10^3/uL (0.0-0.5); HEMATOCRIT 41.3 % (36.0-47.0); HEMOGLOBIN 12.8 g/dl (12.0-15.5); LYMPH # 2.4 10^3/uL (1.5-5.0); LYMPH % 30.1 % (24.0-44.0); MEAN CORPUSCULAR HEMOGLOBIN 27.9 pg (27.0-33.0); MEAN CORPUSCULAR VOLUME 90.2 fl (80.0-96.0); MONO # 0.6 10^3/uL (0.0-0.8); MONO % 7.1 % (0.0-5.0); NEUTROPHILS # 4.7 10^3/uL (1.5-8.5); NEUTROPHILS % 59.7 % (36.0-66.0); PLATELET COUNT, AUTOMATED 285 10^3/uL (150-450); RED BLOOD COUNT 4.58 10^6/uL (4.00-5.40); WHITE BLOOD COUNT 7.9 10^3/uL (4.0-10.0)
[2019-08-22 16:05] LABS: BLOOD UREA NITROGEN 11 MG/DL (7-18); C REACTIVE PROTEIN QUANTITATIV 0.98 MG/DL (0.00-0.30); CALCIUM LEVEL 8.6 MG/DL (8.5-10.1); CARBON DIOXIDE LEVEL 28 MEQ/L (21-32); CHLORIDE LEVEL 103 MEQ/L (98-107); CREATININE FOR GFR 0.79 MG/DL (0.55-1.30); GLOMERULAR FILTRATION RATE > 60.0 (>58); GLUCOSE, FASTING 215 MG/DL (70-100); POTASSIUM SERUM 4.3 MEQ/L (3.5-5.1); SODIUM LEVEL 139 MEQ/L (136-145)
[2019-08-22 18:38] LABS: ERYTHROCYTE SEDIMENTATION RATE 13 mm/hr (0-20)
== END ==
LOC: M SFHCPLAZ 13:46
PROVIDERS: ATTEND Internal Medicine Infectious Disease
DX: M86.671 Other chronic osteomyelitis, right ankle and foot (principal)

== ENCOUNTER → 2019-09-05 | Outpatient (REF) | payer BC ==
[2019-09-05 11:31] LABS: BASO % 0.4 % (0.0-1.0); EOS # 0.1 10^3/uL (0.0-0.5); EOS % 1.4 % (0.0-3.0); HEMOGLOBIN 13.5 g/dl (12.0-15.5); LYMPH % 23.3 % (24.0-44.0); MEAN CORPUSCULAR HEMOGLOBIN 27.6 pg (27.0-33.0); MEAN CORPUSCULAR HGB CONC 31.4 g/dl (32.0-36.5); MEAN CORPUSCULAR VOLUME 87.8 fl (80.0-96.0); MONO # 0.5 10^3/uL (0.0-0.8); MONO % 5.7 % (0.0-5.0); NEUTROPHILS # 5.9 10^3/uL (1.5-8.5); NEUTROPHILS % 68.7 % (36.0-66.0); PLATELET COUNT, AUTOMATED 248 10^3/uL (150-450); WHITE BLOOD COUNT 8.6 10^3/uL (4.0-10.0)
[2019-09-05 12:00] LABS: ERYTHROCYTE SEDIMENTATION RATE 12 mm/hr (0-20)
== END ==
LOC: M SFHCPLAZ 08:56
PROVIDERS: ATTEND Internal Medicine Infectious Disease
DX: M86.671 Other chronic osteomyelitis, right ankle and foot (principal)

== ENCOUNTER → 2019-09-13 | Outpatient (REF) | payer BC ==
[2019-09-13 14:11] LABS: CK-MB VALUE MASS 1.2 NG/ML (<3.6); CPK CREATINE PHOSPHOKINASE 33 U/L (26-192); MB/CK RELATIVE INDEX 3.64 (< OR =4); TROPONIN I < 0.02 NG/ML (< 0.10)
== END ==
LOC: M SFHCPLAZ 10:59
PROVIDERS: ATTEND Family Medicine
DX: R00.0 Tachycardia, unspecified (principal)

== ENCOUNTER → 2019-10-17 | Outpatient (REF) | payer BC | LOC: M LAB REF 16:31 | PROVIDERS: ATTEND Podiatrist | DX: L03.115 Cellulitis of right lower limb (principal); M79.671 Pain in right foot ==

== ENCOUNTER → 2019-11-08 | Outpatient (REF) | payer BC | LOC: M LAB REF 12:02 | PROVIDERS: ATTEND Podiatrist | DX: M79.671 Pain in right foot (principal); L03.125 Acute lymphangitis of right lower limb ==

== ENCOUNTER → 2019-11-15 | Outpatient (CLI) | payer BC ==
[~2019-11-15] MED LIST changes: +TRUL10IN SC
[2019-11-15 17:54] LABS: ALBUMIN 3.5 GM/DL (3.2-5.2); ALT/SGPT 15 U/L (12-78); BILIRUBIN,TOTAL 0.2 MG/DL (0.2-1.0); BLOOD UREA NITROGEN 9 MG/DL (7-18); CALCIUM LEVEL 8.9 MG/DL (8.5-10.1); CARBON DIOXIDE LEVEL 27 MEQ/L (21-32); CHLORIDE LEVEL 103 MEQ/L (98-107); GLOMERULAR FILTRATION RATE > 60.0 (>58); GLUCOSE, FASTING 266 MG/DL (70-100); POTASSIUM SERUM 4.7 MEQ/L (3.5-5.1); SODIUM LEVEL 136 MEQ/L (136-145); TOTAL PROTEIN 7.2 GM/DL (6.4-8.2)
[2019-11-15 18:09] LABS: BASO % 0.5 % (0.0-1.0); EOS # 0.2 10^3/uL (0.0-0.5); EOS % 2.5 % (0.0-3.0); HEMATOCRIT 39.7 % (36.0-47.0); HEMOGLOBIN 12.1 g/dl (12.0-15.5); LYMPH # 2.4 10^3/uL (1.5-5.0); LYMPH % 32.4 % (24.0-44.0); MEAN CORPUSCULAR HEMOGLOBIN 27.2 pg (27.0-33.0); MEAN CORPUSCULAR HGB CONC 30.5 g/dl (32.0-36.5); MEAN CORPUSCULAR VOLUME 89.2 fl (80.0-96.0); MONO # 0.5 10^3/uL (0.0-0.8); MONO % 6.1 % (0.0-5.0); NEUTROPHILS # 4.4 10^3/uL (1.5-8.5); NEUTROPHILS % 58.1 % (36.0-66.0); PLATELET COUNT, AUTOMATED 285 10^3/uL (150-450); RED BLOOD COUNT 4.45 10^6/uL (4.00-5.40); WHITE BLOOD COUNT 7.5 10^3/uL (4.0-10.0)
== END ==
LOC: M WUC 14:47
PROVIDERS: ATTEND Podiatrist
DX: M79.671 Pain in right foot (principal)

== ENCOUNTER 2019-11-25 10:36 | Day surgery (SDC) | payer BC ==
[~2019-11-25] VITALS: Ht 160 cm; Wt 90.0 kg
[~2019-11-25 10:36] MED LIST changes: +LIDOCAINE 2% INJ 100 MG/5 ML SDV (FOR ANES.) As Ordered ONE; +LR 1,000 ML IV ONE; +ONDANSETRON 4MG/2ML VIAL (J2405) As Ordered ONE; +VANCOMYCIN HCL 1,000 MG, VIAL MATE ADAPTER 1 EACH in D5W 250 ML IV ONE; +dexameTHASONE 4 MG/ML 1ML VIAL (J1100) As Ordered ONE; +propofoL 500 MG/50 ML VIAL As Ordered ONE
[2019-11-25] MEDS ORDERED: MIDAZOLAM INJ 2 MG/2 ML VIAL (J2250) As Ordered ONE (12:47)
[2019-11-25] MEDS ORDERED: fentaNYL 100 MCG/2 ML INJECTION (J3010) As Ordered ONE (12:48)
[2019-11-25] MEDS ORDERED: BUPIVACAINE HCL 0.5% 30 ML VIAL As Ordered ONE (13:35)
[2019-11-25] MEDS ORDERED: LIDOCAINE 2% MDV 20 ML VIAL As Ordered ONE (13:35)
[2019-11-25] MEDS ORDERED: dexameTHASONE 4 MG/ML 1ML VIAL (J1100) As Ordered ONE (13:35)
[2019-11-25] MEDS ORDERED: BACITRACIN PWD 50,000 UNITS VIAL As Ordered ONE (13:35)
[2019-11-25] MEDS: TOBRAMYCIN SULF 1.2 GM VIAL As Ordered ONE (14:08)
[2019-11-25] MEDS ORDERED: propofoL 500 MG/50 ML VIAL As Ordered ONE (14:09)
[2019-11-25] MEDS ORDERED: TOBRAMYCIN SULF 1.2 GM VIAL As Ordered ONE (14:22)
[2019-11-25 15:30] VITALS: BP 112/69
--- NOTE | 2019-11-25 16:39 | REP ---
Right foot series: Three views: History: Transmetatarsal amputation Comparison right foot radiographs are from July 04, 2019. Findings: The previously noted transmetatarsal amputation has been revised. There are antibiotic infused opaque pledgets in the soft tissues at the amputation stump particularly adjacent to the second metatarsal. There is exuberant periosteal reaction which has developed in the interval since the July 08, 2019 prior study about the remaining second metatarsal. Some periosteal reaction is seen around the distal end of the fifth metatarsal. Heel spurs are noted. A surgical drain is noted in the forefoot soft tissues. Impression: Status post transmetatarsal amputation revision. Electronically Signed by Christian Uriostegui MD 11/25/2019 04:41 P
--- NOTE | 2019-11-25 19:13 | RO ---
DATE OF PROCEDURE: 11/25/2019 PREOPERATIVE DIAGNOSIS: Osteomyelitis 1st and 2nd metatarsal right foot. POSTOPERATIVE DIAGNOSES: Osteomyelitis 1st and 2nd metatarsal right foot. OPERATIVE PROCEDURE: Resection of 1st and 2nd metatarsals right foot with insertion of tobramycin impregnated beads and closure over TLS drain right foot. SURGEON: Bentley Carroll DPM EARLY CHILDHOOD EDUCATION INSTRUCTOR: None ANESTHESIA: ESTIMATED BLOOD LOSS: 100 mL DESCRIPTION OF OPERATION: On 11/25/2019, this 48-year-old white female was taken from her hospital room to the operating room and placed on the operating room table in the supine position. Following the induction of IV sedation and local and regional anesthesia, the right lower extremity was prepped and draped in the usual aseptic manner. Attention was directed to the patient's right foot. There was noted to be an ulceration in the distal aspect of the transmetatarsal site. An incision was then made along the dorsal arm and the ulcer was completely excised off the plantar surface of the right foot and the skin was reflected in a dorsal direction and the 1st metatarsal and 2nd metatarsal area were then osteotomized trying to create a well-balanced pr of the 1st, 2nd, 5th and 4th metatarsals. This was done utilizing a C-Arm to help plan the osteotomies. The 1st and 2nd metatarsals were cut and removed. The 2nd metatarsal was sent for aerobic and anaerobic cultures. The wound was flushed with copious amounts of tobramycin solution with a low pressure pulse lavage system. All bleeders as encountered were electrocoagulated. TLS drain was applied followed by approximately 10 tobramycin impregnated beads and the wound was closed with #2-0 nylon in a simple interrupted type fashion. A dry sterile dressing was applied to the patient's right foot and the having apparently tolerated the surgical procedure well was taken from the OR to the recovery room for further monitoring by the anesthesia department. Postoperative instructions were given upon discharge. The patient will be taking ampicillin 500 mg every 8 hours and doxycycline 100 mg by mouth twice a day postoperatively until her culture becomes available.
== END 2019-11-25 16:28 | disposition home or self-care (01) ==
LOC: M SDC 10:36 → EEVIPCON 12:45 → M SDC 16:28
PROVIDERS: ATTEND Podiatrist
DX: E10.621 Type 1 diabetes mellitus with foot ulcer (principal); E10.42 Type 1 diabetes mellitus with diabetic polyneuropathy; L03.115 Cellulitis of right lower limb; M79.671 Pain in right foot; Z79.4 Long term (current) use of insulin; Z79.84 Long term (current) use of oral hypoglycemic drugs; Z79.899 Other long term (current) drug therapy; F41.9 Anxiety disorder, unspecified; F32.9 Major depressive disorder, single episode, unspecified
CPT/HCPCS: 28122; 73630; 81025; 87070; 87075; 87077; 87186; 88304; 88311; C1713; J1100; J2250; J2405; J3010; J3370

== ENCOUNTER → 2019-12-12 | Outpatient (CLI) | payer BC ==
[~2019-12-12] MED LIST changes: -LIDOCAINE 2% INJ 100 MG/5 ML SDV (FOR ANES.) As Ordered ONE; -LR 1,000 ML IV ONE; -ONDANSETRON 4MG/2ML VIAL (J2405) As Ordered ONE; -VANCOMYCIN HCL 1,000 MG, VIAL MATE ADAPTER 1 EACH in D5W 250 ML IV ONE; -dexameTHASONE 4 MG/ML 1ML VIAL (J1100) As Ordered ONE; -propofoL 500 MG/50 ML VIAL As Ordered ONE
[2019-12-12 16:44] LABS: HEMOGLOBIN A1c 9.5 %
== END ==
LOC: M WUC 14:49
PROVIDERS: ATTEND Student in an Organized Health Care Education/Training Program
DX: E11.69 Type 2 diabetes mellitus with other specified complication (principal)

== ENCOUNTER → 2019-12-14 | Outpatient (CLI) | payer BC | LOC: M LRY 10:51 | PROVIDERS: ATTEND Family Medicine | DX: M75.42 Impingement syndrome of left shoulder (principal) ==

== ENCOUNTER → 2020-11-05 | Outpatient (REF) | payer OTHER ==
[~2020-11-05] MED LIST changes: +GABA-282 PO; -GABA-843 PO; -LISI-538 PO; +LISI20TA33 PO
== END ==
LOC: M LAB REF 17:03
PROVIDERS: ATTEND Podiatrist
DX: L03.119 Cellulitis of unspecified part of limb (principal); M79.671 Pain in right foot

== ENCOUNTER → 2020-12-05 | Outpatient (REF) | payer MEDICARE ==
[2020-12-05 13:58] LABS: BLOOD UREA NITROGEN 12 MG/DL (7-18); CALCIUM LEVEL 9.3 MG/DL (8.5-10.1); CARBON DIOXIDE LEVEL 30 MEQ/L (21-32); CHLORIDE LEVEL 104 MEQ/L (98-107); CHOLESTEROL LEVEL 97 MG/DL (<200); CK-MB VALUE MASS 1.2 NG/ML (<3.6); CPK CREATINE PHOSPHOKINASE 31 U/L (26-192); GLOMERULAR FILTRATION RATE > 60.0 (>58); GLUCOSE, FASTING 187 MG/DL (70-100); HDL CHOLESTEROL 26 MG/DL (>40); LDL CHOLESTEROL 35 MG/DL (<100); MB/CK RELATIVE INDEX 3.87 (< OR =4); NON-HDL-C 71 MG/DL; POTASSIUM SERUM 4.4 MEQ/L (3.5-5.1); SODIUM LEVEL 140 MEQ/L (136-145); TRIGLYCERIDES LEVEL 180 MG/DL (<150); TROPONIN I 0.04 NG/ML (< 0.10)
[2020-12-05 14:05] LABS: MALB URINE SIEMENS 70.3 MG/L; MAU/CREAT RATIO 36.4 MCG/MG (0.0-30.0)
[2020-12-05 14:47] LABS: HEMOGLOBIN A1c 9.2 %
== END ==
LOC: M SFHCPLAZ 11:31
PROVIDERS: ATTEND Family Medicine
DX: R06.02 Shortness of breath (principal); E11.65 Type 2 diabetes mellitus with hyperglycemia
CPT/HCPCS: 36415; 80048; 80061; 82043; 82550; 82553; 83036; 84484; G0463

== ENCOUNTER → 2021-03-19 | Outpatient (CLI) | payer MEDICARE ==
[2021-03-19 13:52] LABS: BASO % 0.5 % (0.0-1.0); EOS # 0.2 10^3/uL (0.0-0.5); EOS % 2.7 % (0.0-3.0); HEMATOCRIT 42.5 % (36.0-47.0); HEMOGLOBIN 13.6 g/dl (12.0-15.5); LYMPH # 2.4 10^3/uL (1.5-5.0); LYMPH % 29.7 % (24.0-44.0); MEAN CORPUSCULAR HEMOGLOBIN 28.9 pg (27.0-33.0); MEAN CORPUSCULAR VOLUME 90.2 fl (80.0-96.0); MONO # 0.6 10^3/uL (0.0-0.8); MONO % 6.9 % (2.0-8.0); NEUTROPHILS # 4.9 10^3/uL (1.5-8.5); NEUTROPHILS % 59.8 % (36.0-66.0); PLATELET COUNT, AUTOMATED 237 10^3/uL (150-450); RED BLOOD COUNT 4.71 10^6/uL (4.00-5.40); WHITE BLOOD COUNT 8.1 10^3/uL (4.0-10.0)
[2021-03-19 14:24] LABS: ALBUMIN 3.9 GM/DL (3.2-5.2); ALT/SGPT 25 U/L (12-78); BILIRUBIN,TOTAL 0.6 MG/DL (0.2-1.0); BLOOD UREA NITROGEN 17 MG/DL (7-18); CALCIUM LEVEL 9.5 MG/DL (8.5-10.1); CARBON DIOXIDE LEVEL 27 MEQ/L (21-32); CHLORIDE LEVEL 105 MEQ/L (98-107); CREATININE FOR GFR 0.84 MG/DL (0.55-1.30); GLOMERULAR FILTRATION RATE > 60.0 (>51); GLUCOSE, FASTING 203 MG/DL (70-100); POTASSIUM SERUM 4.9 MEQ/L (3.5-5.1); SODIUM LEVEL 139 MEQ/L (136-145); TOTAL PROTEIN 6.9 GM/DL (6.4-8.2)
== END ==
LOC: M PLALAB 10:38
PROVIDERS: ATTEND Podiatrist
DX: M25.774 Osteophyte, right foot (principal); M79.671 Pain in right foot

== ENCOUNTER → 2021-03-20 | Outpatient (REF) | payer OTHER ==
[2021-03-20 14:02] LABS: CK-MB VALUE MASS < 1.0 NG/ML (<3.6); CPK CREATINE PHOSPHOKINASE 49 U/L (26-192); MB/CK RELATIVE INDEX 2.04 (< OR =4); TROPONIN I < 0.02 NG/ML (< 0.10)
[2021-03-20 14:07] LABS: HEMOGLOBIN A1c 7.9 %
[2021-03-20 14:08] LABS: MAU/CREAT RATIO 27.4 MCG/MG (0.0-30.0)
== END ==
LOC: M SFHCPLAZ 10:48
PROVIDERS: ATTEND Family Medicine
DX: E11.65 Type 2 diabetes mellitus with hyperglycemia (principal); R94.31 Abnormal electrocardiogram [ECG] [EKG]

== ENCOUNTER → 2021-04-24 | Outpatient (CLI) | payer OTHER ==
[2021-04-24 15:34] LABS: BASO % 0.3 % (0.0-1.0); EOS # 0.3 10^3/uL (0.0-0.5); EOS % 2.9 % (0.0-3.0); HEMATOCRIT 36.4 % (36.0-47.0); HEMOGLOBIN 11.8 g/dl (12.0-15.5); LYMPH # 2.5 10^3/uL (1.5-5.0); LYMPH % 28.6 % (24.0-44.0); MEAN CORPUSCULAR HEMOGLOBIN 29.1 pg (27.0-33.0); MEAN CORPUSCULAR HGB CONC 32.4 g/dl (32.0-36.5); MEAN CORPUSCULAR VOLUME 89.9 fl (80.0-96.0); MONO # 0.6 10^3/uL (0.0-0.8); MONO % 7.2 % (2.0-8.0); NEUTROPHILS # 5.3 10^3/uL (1.5-8.5); NEUTROPHILS % 60.3 % (36.0-66.0); PLATELET COUNT, AUTOMATED 260 10^3/uL (150-450); RED BLOOD COUNT 4.05 10^6/uL (4.00-5.40); WHITE BLOOD COUNT 8.9 10^3/uL (4.0-10.0)
[2021-04-24 16:00] LABS: ERYTHROCYTE SEDIMENTATION RATE 33 mm/hr (0-30)
== END ==
LOC: M WUC 13:52
PROVIDERS: ATTEND Ophthalmology
DX: M31.6 Other giant cell arteritis (principal)

== ENCOUNTER → 2021-11-15 | Outpatient (CLI) | payer OTHER | LOC: M PLALAB 09:46 | PROVIDERS: ATTEND Student in an Organized Health Care Education/Training Program | DX: E11.65 Type 2 diabetes mellitus with hyperglycemia (principal) ==

== ENCOUNTER → 2021-11-25 | Outpatient (REF) | payer OTHER | LOC: M LAB REF 15:27 | PROVIDERS: ATTEND Podiatrist | DX: L03.115 Cellulitis of right lower limb (principal); M79.671 Pain in right foot ==

== ENCOUNTER → 2021-12-09 | Outpatient (REF) | payer BC, OTHER ==
[~2021-12-09] MED LIST changes: +AMOX875T2 PO
== END ==
LOC: M LAB REF 15:33
PROVIDERS: ATTEND Podiatrist
DX: M79.671 Pain in right foot (principal)

== ENCOUNTER → 2021-12-18 | Outpatient (CLI) | payer BC, OTHER | LOC: M LABSMTC 09:56 | PROVIDERS: ATTEND Anesthesiology | DX: Z01.818 Encounter for other preprocedural examination (principal); Z11.52 Encounter for screening for COVID-19 ==

== ENCOUNTER 2021-12-20 06:10 | Day surgery (SDC) | payer OTHER ==
[~2021-12-20] VITALS: Ht 160 cm; Wt 93.0 kg
[~2021-12-20 06:10] MED LIST changes: +AMPICILLIN SOD/SULBACTAM SOD 3 GM in D5W MINI-BAG PLUS 100 ML IV ONE; +LIDOCAINE 1% MDV 20ML VIAL SQ PRN; +LR 1,000 ML IV ONE
[2021-12-20] MEDS ORDERED: dexameTHASONE 4 MG/ML 1ML VIAL (J1100 PER 1MG) As Ordered ONE (06:57)
[2021-12-20] MEDS ORDERED: NEOSPORIN GU IRRIG 20 ML VIAL As Ordered ONE (06:57)
[2021-12-20] MEDS ORDERED: BUPIVACAINE HCL 0.5% 30 ML VIAL As Ordered ONE (06:57)
[2021-12-20] MEDS ORDERED: LIDOCAINE 2% MDV 20ML VIAL As Ordered ONE (06:57)
[2021-12-20] MEDS ORDERED: METOPROLOL SUCC *XL* 25MG TAB (TopROL *XL*) PO ONE (07:15)
[2021-12-20] MEDS ORDERED: METOPROLOL SUCC (TopROL XL) 50MG **XL** TAB PO ONE (07:15)
[2021-12-20] MEDS ORDERED: GENTAMICIN SULF 80MG/2ML VIAL As Ordered ONE (07:17)
[2021-12-20 07:21] VITALS: BP 130/77
[2021-12-20] MEDS ORDERED: KETOROLAC 60MG 2ML VIAL As Ordered ONE (07:43)
[2021-12-20] MEDS ORDERED: propofoL 200 MG/20 ML VIAL As Ordered ONE (07:43)
[2021-12-20] MEDS ORDERED: fentaNYL 100 MCG/2 ML INJECTION As Ordered ONE (07:43)
[2021-12-20] MEDS ORDERED: MIDAZOLAM INJ 2MG/2ML VIAL (J2250 PER 1MG) As Ordered ONE (07:43)
[2021-12-20] MEDS ORDERED: LIDOCAINE 2% 100MG/5ML SDV (FOR ANES.) As Ordered ONE (07:43)
[2021-12-20] MEDS ORDERED: ONDANSETRON 4MG/2ML VIAL As Ordered ONE (07:43)
[2021-12-20] MEDS ORDERED: SEVOFLURANE INHAL SOLN 250 ML BTL As Ordered ONE (07:48)
[2021-12-20] MEDS ORDERED: ACETAMINOPHEN 1000MG 100ML IV BTL (OFIRMEV) (J0131 PER 10MG) As Ordered ONE (07:52)
[2021-12-20] MEDS ORDERED: PHENYLephrine 500MCG 5ML (100MCG/ML) SYRINGE As Ordered ONE (07:59)
[2021-12-20] MEDS ORDERED: ePHEDrine SULFATE 25 MG/5 ML(5MG/ML) SYRINGE As Ordered ONE (08:27)
[2021-12-20 09:30] VITALS: BP 112/71
== END 2021-12-20 09:45 | disposition home or self-care (01) ==
LOC: M SDC 06:10
PROVIDERS: ATTEND Podiatrist
DX: M89.9 Disorder of bone, unspecified (principal); Z95.5 Presence of coronary angioplasty implant and graft; I25.10 Atherosclerotic heart disease of native coronary artery without angina pectoris; I10 Essential (primary) hypertension; E78.5 Hyperlipidemia, unspecified; E10.9 Type 1 diabetes mellitus without complications; Z86.14 Personal history of Methicillin resistant Staphylococcus aureus infection; Z87.09 Personal history of other diseases of the respiratory system; Z79.4 Long term (current) use of insulin; Z89.429 Acquired absence of other toe(s), unspecified side; Z79.82 Long term (current) use of aspirin; Z79.899 Other long term (current) drug therapy
CPT/HCPCS: 28122; 81025; 88300; J0131; J1580; J1885; J2250; J2370; J2405; J3010

== ENCOUNTER → 2022-01-07 | Outpatient (REF) | payer OTHER ==
[~2022-01-07] MED LIST changes: -AMPICILLIN SOD/SULBACTAM SOD 3 GM in D5W MINI-BAG PLUS 100 ML IV ONE; -LIDOCAINE 1% MDV 20ML VIAL SQ PRN; -LR 1,000 ML IV ONE
== END ==
LOC: M LAB REF 15:24
PROVIDERS: ATTEND Podiatrist
DX: L03.125 Acute lymphangitis of right lower limb (principal); M79.671 Pain in right foot

== ENCOUNTER → 2022-06-03 | Outpatient (CLI) | payer BC, OTHER ==
[2022-06-03 16:41] LABS: BASO % 0.5 % (0.0-1.0); EOS # 0.1 10^3/uL (0.0-0.5); EOS % 1.7 % (0.0-3.0); HEMATOCRIT 32.5 % (36.0-47.0); HEMOGLOBIN 10.2 g/dl (12.0-15.5); LYMPH # 2.1 10^3/uL (1.5-5.0); MEAN CORPUSCULAR HEMOGLOBIN 29.1 pg (27.0-33.0); MEAN CORPUSCULAR HGB CONC 31.4 g/dl (32.0-36.5); MEAN CORPUSCULAR VOLUME 92.6 fl (80.0-96.0); MONO # 0.6 10^3/uL (0.0-0.8); MONO % 7.3 % (2.0-8.0); NEUTROPHILS # 5.4 10^3/uL (1.5-8.5); NEUTROPHILS % 65.1 % (36.0-66.0); PLATELET COUNT, AUTOMATED 267 10^3/uL (150-450); RED BLOOD COUNT 3.51 10^6/uL (4.00-5.40); WHITE BLOOD COUNT 8.3 10^3/uL (4.0-10.0)
[2022-06-03 16:56] LABS: CHOLESTEROL RISK RATIO 3.964 (<5)
[2022-06-03 17:13] LABS: HEMOGLOBIN A1c 7.5 %
== END ==
LOC: M WUC 10:13
PROVIDERS: ATTEND Student in an Organized Health Care Education/Training Program
DX: M77.9 Enthesopathy, unspecified (principal); E11.65 Type 2 diabetes mellitus with hyperglycemia

== ENCOUNTER → 2022-08-04 | Outpatient (CLI) | payer BC, OTHER ==
[2022-08-04 17:32] LABS: BASO # 0.1 10^3/uL (0.0-0.2); BASO % 0.7 % (0.0-1.0); EOS # 0.2 10^3/uL (0.0-0.5); EOS % 2.9 % (0.0-3.0); HEMATOCRIT 33.8 % (36.0-47.0); HEMOGLOBIN 10.9 g/dl (12.0-15.5); LYMPH # 2.8 10^3/uL (1.5-5.0); LYMPH % 36.2 % (24.0-44.0); MEAN CORPUSCULAR HEMOGLOBIN 29.8 pg (27.0-33.0); MEAN CORPUSCULAR HGB CONC 32.2 g/dl (32.0-36.5); MEAN CORPUSCULAR VOLUME 92.3 fl (80.0-96.0); MONO # 0.6 10^3/uL (0.0-0.8); MONO % 7.2 % (2.0-8.0); NEUTROPHILS # 4.1 10^3/uL (1.5-8.5); NEUTROPHILS % 52.7 % (36.0-66.0); PLATELET COUNT, AUTOMATED 255 10^3/uL (150-450); RED BLOOD COUNT 3.66 10^6/uL (4.00-5.40); WHITE BLOOD COUNT 7.7 10^3/uL (4.0-10.0)
[2022-08-04 17:55] LABS: CALCIUM LEVEL 9.5 MG/DL (8.5-10.1); CHOLESTEROL RISK RATIO 3.793 (<5); CREATININE FOR GFR 1.66 MG/DL (0.55-1.30); GLOMERULAR FILTRATION RATE 34.7 (>51); PERCENT SATURATION 15.1 % (13.2-45.0)
[2022-08-04 19:57] LABS: APPEARANCE, URINE MANUAL CLEAR (CLEAR); COLOR, URINE MANUAL YELLOW (YELLOW)
[2022-08-04 19:58] LABS: BILIRUBIN, URINE MANUAL NEGATIVE (NEGATIVE); BLOOD URINE MANUAL NEGATIVE (NEGATIVE); GLUCOSE, URINE (UA) MANUAL NEGATIVE (NEGATIVE); KETONE, URINE MANUAL NEGATIVE (NEGATIVE); LEUKOCYTE ESTERASE, URINE MAN POSITIVE (NEGATIVE); NITRITE, URINE MANUAL NEGATIVE (NEGATIVE); PROTEIN, URINE MANUAL NEGATIVE (NEGATIVE); UROBILINOGEN, URINE MANUAL NORMAL (NORMAL)
[2022-08-04 20:55] LABS: BACTERIA, URINE SMALL AMOUNT; MUCUS, URINE SMALL AMOUNT (NEGATIVE); RBC, URINE 0-1 /hpf (0-3); SQUAMOUS EPITHELIAL CELL URINE LARGE AMOUNT /hpf (SMALL AMT)
== END ==
LOC: M WUC 13:20
PROVIDERS: ATTEND Student in an Organized Health Care Education/Training Program
DX: D50.9 Iron deficiency anemia, unspecified (principal); E11.29 Type 2 diabetes mellitus with other diabetic kidney complication; I10 Essential (primary) hypertension

== ENCOUNTER → 2022-09-10 | Outpatient (CLI) | payer BC, OTHER | LOC: M RAD 08:43 | PROVIDERS: ATTEND Student in an Organized Health Care Education/Training Program | DX: E11.21 Type 2 diabetes mellitus with diabetic nephropathy (principal) ==

== ENCOUNTER → 2022-09-18 | Outpatient (CLI) | payer BC, OTHER ==
[2022-09-18 13:44] LABS: PERCENT SATURATION 16.9 % (13.2-45.0)
[2022-09-18 13:45] LABS: FERRITIN 12.1 NG/ML (7.3-270.7)
[2022-09-18 13:51] LABS: HEMOGLOBIN A1c 6.4 % (4.0-6.0)
[2022-09-18 14:13] LABS: CREATININE, URINE 101.8 MG/DL
[2022-09-18 14:14] LABS: MAU/CREAT RATIO 6.8 MCG/MG (0.0-30.0)
[2022-09-18 16:19] LABS: APPEARANCE, URINE MANUAL HAZY (CLEAR); COLOR, URINE MANUAL LT YELLOW (YELLOW)
[2022-09-18 16:20] LABS: BILIRUBIN, URINE MANUAL NEGATIVE (NEGATIVE); BLOOD URINE MANUAL TRACE (NEGATIVE); GLUCOSE, URINE (UA) MANUAL 4+(1000 MG/DL) mg/dL (NEGATIVE); KETONE, URINE MANUAL NEGATIVE (NEGATIVE); LEUKOCYTE ESTERASE, URINE MAN POSITIVE (NEGATIVE); NITRITE, URINE MANUAL NEGATIVE (NEGATIVE); PROTEIN, URINE MANUAL NEGATIVE (NEGATIVE); UROBILINOGEN, URINE MANUAL NORMAL (NORMAL)
[2022-09-18 19:55] LABS: BACTERIA, URINE SMALL AMOUNT; MUCUS, URINE LARGE AMOUNT (NEGATIVE); SQUAMOUS EPITHELIAL CELL URINE LARGE AMOUNT /hpf (SMALL AMT); TRANSITIONAL EPI CELLS, URINE MOD AMOUNT /hpf; TRICHOMONAS, URINE SMALL AMOUNT; WBC, URINE TNTC /hpf (0-3)
[2022-09-18 19:57] LABS: HYALINE CAST, URINE NONE SEEN /lpf (0-1)
== END ==
LOC: M WUC 09:30
PROVIDERS: ATTEND Student in an Organized Health Care Education/Training Program
DX: E11.21 Type 2 diabetes mellitus with diabetic nephropathy (principal); D64.9 Anemia, unspecified

== ENCOUNTER → 2022-09-23 | Outpatient (REF) | payer BC, OTHER | LOC: M SFHCPLAZ 19:12 | PROVIDERS: ATTEND Family Medicine | DX: R30.0 Dysuria (principal); E11.29 Type 2 diabetes mellitus with other diabetic kidney complication; Z53.9 Procedure and treatment not carried out, unspecified reason ==

== ENCOUNTER → 2022-09-23 | Outpatient (REF) | payer BC, OTHER | LOC: M SFHCPLAZ 17:46 | PROVIDERS: ATTEND Student in an Organized Health Care Education/Training Program | DX: R30.0 Dysuria (principal); Z53.9 Procedure and treatment not carried out, unspecified reason ==

== ENCOUNTER → 2022-09-24 | Outpatient (CLI) | payer BC, OTHER ==
[2022-09-24 16:47] LABS: BASO % 0.3 % (0.0-1.0); EOS # 0.2 10^3/uL (0.0-0.5); EOS % 1.8 % (0.0-3.0); HEMATOCRIT 35.3 % (36.0-47.0); LYMPH # 2.5 10^3/uL (1.5-5.0); LYMPH % 27.8 % (24.0-44.0); MEAN CORPUSCULAR HEMOGLOBIN 28.9 pg (27.0-33.0); MEAN CORPUSCULAR HGB CONC 31.2 g/dl (32.0-36.5); MEAN CORPUSCULAR VOLUME 92.9 fl (80.0-96.0); MONO # 0.6 10^3/uL (0.0-0.8); MONO % 7.3 % (2.0-8.0); NEUTROPHILS # 5.5 10^3/uL (1.5-8.5); NEUTROPHILS % 62.6 % (36.0-66.0); PLATELET COUNT, AUTOMATED 257 10^3/uL (150-450); WHITE BLOOD COUNT 8.8 10^3/uL (4.0-10.0)
[2022-09-24 17:05] LABS: APPEARANCE, URINE MANUAL HAZY (CLEAR); BILIRUBIN, URINE MANUAL NEGATIVE (NEGATIVE); BLOOD URINE MANUAL POSITIVE (NEGATIVE); COLOR, URINE MANUAL LT YELLOW (YELLOW); GLUCOSE, URINE (UA) MANUAL 4+(1000 MG/DL) mg/dL (NEGATIVE); KETONE, URINE MANUAL NEGATIVE (NEGATIVE); LEUKOCYTE ESTERASE, URINE MAN POSITIVE (NEGATIVE); NITRITE, URINE MANUAL NEGATIVE (NEGATIVE); PROTEIN, URINE MANUAL TRACE mg/dL (NEGATIVE); UROBILINOGEN, URINE MANUAL NORMAL (NORMAL)
[2022-09-24 17:38] LABS: WBC, URINE 15-20 /hpf (0-3)
[2022-09-24 17:39] LABS: BACTERIA, URINE MOD AMOUNT; HYALINE CAST, URINE NONE SEEN /lpf (0-1); MUCUS, URINE SMALL AMOUNT (NEGATIVE); SQUAMOUS EPITHELIAL CELL URINE MOD AMOUNT /hpf (SMALL AMT)
[2022-09-24 17:55] LABS: CALCIUM LEVEL 9.5 MG/DL (8.5-10.1); CREATININE FOR GFR 1.69 MG/DL (0.55-1.30); POTASSIUM SERUM 5.1 MMOL/L (3.5-5.1)
== END ==
LOC: M WUC 11:24
PROVIDERS: ATTEND Student in an Organized Health Care Education/Training Program
DX: E11.29 Type 2 diabetes mellitus with other diabetic kidney complication (principal)

== ENCOUNTER → 2022-10-16 | Outpatient (REF) | payer BC, OTHER | LOC: M LAB REF 17:03 | PROVIDERS: ATTEND Internal Medicine Nephrology | DX: D50.9 Iron deficiency anemia, unspecified (principal) ==

== ENCOUNTER → 2022-12-17 | Outpatient (REF) | payer BC, OTHER | LOC: M LAB REF 16:06 | PROVIDERS: ATTEND Podiatrist | DX: M79.671 Pain in right foot (principal) ==

== ENCOUNTER → 2022-12-24 | Outpatient (CLI) | payer BC, OTHER ==
[2022-12-24 16:19] LABS: BASO % 0.3 % (0.0-1.0); EOS # 0.3 10^3/uL (0.0-0.5); HEMATOCRIT 32.8 % (36.0-47.0); HEMOGLOBIN 9.9 g/dl (12.0-15.5); LYMPH # 2.5 10^3/uL (1.5-5.0); LYMPH % 25.3 % (24.0-44.0); MEAN CORPUSCULAR HEMOGLOBIN 27.9 pg (27.0-33.0); MEAN CORPUSCULAR HGB CONC 30.2 g/dl (32.0-36.5); MEAN CORPUSCULAR VOLUME 92.4 fl (80.0-96.0); MONO # 0.7 10^3/uL (0.0-0.8); MONO % 7.4 % (2.0-8.0); NEUTROPHILS # 6.2 10^3/uL (1.5-8.5); NEUTROPHILS % 63.1 % (36.0-66.0); PLATELET COUNT, AUTOMATED 402 10^3/uL (150-450); RED BLOOD COUNT 3.55 10^6/uL (4.00-5.40); WHITE BLOOD COUNT 9.8 10^3/uL (4.0-10.0)
[2022-12-24 16:38] LABS: CALCIUM LEVEL 8.8 MG/DL (8.5-10.1); CHOLESTEROL RISK RATIO 4.12 (<5); CREATININE FOR GFR 1.74 MG/DL (0.55-1.30); GLOMERULAR FILTRATION RATE 32.8 (>51); HDL CHOLESTEROL 21.8 MG/DL (>40); LDL CHOLESTEROL 48.4 MG/DL (<100); NON-HDL-C 68.2 MG/DL; POTASSIUM SERUM 5.7 MMOL/L (3.5-5.1)
[2022-12-24 16:39] LABS: FREE T4 1.28 NG/DL (0.89-1.76); THYROID STIMULATING HORMONE 2.278 uIU/ML (0.55-4.78)
[2022-12-24 19:12] LABS: HEMOGLOBIN A1c 6.9 % (4.0-6.0)
== END ==
LOC: M PLALAB 11:41
PROVIDERS: ATTEND Student in an Organized Health Care Education/Training Program
DX: E11.621 Type 2 diabetes mellitus with foot ulcer (principal)

== ENCOUNTER → 2022-12-24 | Outpatient (REF) | payer BC, OTHER | LOC: M SFHCPLAZ 11:15 | PROVIDERS: ATTEND Family Medicine | DX: E11.621 Type 2 diabetes mellitus with foot ulcer (principal); I10 Essential (primary) hypertension; R30.0 Dysuria; Z53.9 Procedure and treatment not carried out, unspecified reason ==

== ENCOUNTER → 2023-01-29 | Outpatient (CLI) | payer BC | LOC: M PLARAD 11:01 | PROVIDERS: ATTEND Podiatrist | DX: M79.671 Pain in right foot (principal) ==

== ENCOUNTER → 2023-02-11 | Outpatient (REF) | payer BC, OTHER ==
[2023-02-11 17:29] LABS: HEMATOCRIT 36.3 % (36.0-47.0); HEMOGLOBIN 10.9 g/dl (12.0-15.5); MEAN CORPUSCULAR HEMOGLOBIN 27.7 pg (27.0-33.0); MEAN CORPUSCULAR VOLUME 92.1 fl (80.0-96.0); PLATELET COUNT, AUTOMATED 310 10^3/uL (150-450); RED BLOOD COUNT 3.94 10^6/uL (4.00-5.40); WHITE BLOOD COUNT 7.8 10^3/uL (4.0-10.0)
[2023-02-11 17:30] LABS: ALBUMIN 3.7 G/DL (3.2-5.2); ALKALINE PHOSPHATASE 97 U/L (46-116); ALT/SGPT < 9 U/L (7.0-40); AST/SGOT 9 U/L (<34); BILIRUBIN,TOTAL 0.4 MG/DL (0.3-1.2); BLOOD UREA NITROGEN 21 MG/DL (9-23); CALCIUM LEVEL 9.7 MG/DL (8.5-10.1); CARBON DIOXIDE LEVEL 27 MMOL/L (20-31); CHLORIDE LEVEL 104 MMOL/L (98-107); CHOLESTEROL LEVEL 116 MG/DL (<200); CHOLESTEROL RISK RATIO 4.05 (<5); CREATININE FOR GFR 1.59 MG/DL (0.55-1.30); GLOMERULAR FILTRATION RATE 36.3 (>51); GLUCOSE, FASTING 182 MG/DL (60-100); HDL CHOLESTEROL 28.6 MG/DL (>40); LDL CHOLESTEROL 59.6 MG/DL (<100); MAGNESIUM LEVEL 1.7 MG/DL (1.8-2.4); NON-HDL-C 87.4 MG/DL; POTASSIUM SERUM 4.7 MMOL/L (3.5-5.1); SODIUM LEVEL 136 MMOL/L (136-145); THYROID STIMULATING HORMONE 2.222 uIU/ML (0.55-4.78); TOTAL PROTEIN 7.1 G/DL (5.7-8.2); TRIGLYCERIDES LEVEL 139 MG/DL (<150)
[2023-02-11 17:31] LABS: FREE T4 1.13 NG/DL (0.89-1.76)
[2023-02-11 17:44] LABS: CREATININE, URINE 112.2 MG/DL; MAU/CREAT RATIO 16.9 MCG/MG (0.0-30.0)
[2023-02-11 17:58] LABS: HEMOGLOBIN A1c 7.1 % (4.0-6.0)
== END ==
LOC: M SFHCADAM 11:33
PROVIDERS: ATTEND Family Medicine
DX: L97.514 Non-pressure chronic ulcer of other part of right foot with necrosis of bone (principal); N18.32 Chronic kidney disease, stage 3b; I10 Essential (primary) hypertension; E78.2 Mixed hyperlipidemia; E11.29 Type 2 diabetes mellitus with other diabetic kidney complication

== ENCOUNTER → 2023-02-19 | Outpatient (REF) | payer BC, OTHER ==
[2023-02-19 14:19] LABS: FERRITIN 72.8 NG/ML (7.3-270.7)
[2023-02-19 14:21] LABS: FOLATE > 24.00 NG/ML (>5.4); TOTAL IRON BINDING CAPACITY 310 UG/DL (250-425)
[2023-02-19 14:22] LABS: VITAMIN B12 LEVEL 213 PG/ML (211-911)
[2023-02-19 14:24] LABS: IRON (FE) 52 UG/DL (50-170); PERCENT SATURATION 16.8 % (13.2-45.0)
== END ==
LOC: M SFHCADAM 10:40
PROVIDERS: ATTEND Family Medicine
DX: D64.9 Anemia, unspecified (principal)

== ENCOUNTER → 2023-03-23 | Outpatient (REF) | payer BC, OTHER | LOC: M LAB REF 16:18 | PROVIDERS: ATTEND Podiatrist | DX: L03.115 Cellulitis of right lower limb (principal) ==

== ENCOUNTER → 2023-04-08 | Outpatient (REF) | payer BC, OTHER | LOC: M LAB REF 17:09 | PROVIDERS: ATTEND Internal Medicine Nephrology | DX: D50.9 Iron deficiency anemia, unspecified (principal) ==

== ENCOUNTER → 2023-06-12 | Outpatient (CLI) | payer BC, OTHER ==
[2023-06-12 17:17] LABS: CREATININE FOR GFR 2.04 MG/DL (0.55-1.30); GLOMERULAR FILTRATION RATE 27.2 (>51)
== END ==
LOC: M WUC 11:02
PROVIDERS: ATTEND Internal Medicine
DX: N18.9 Chronic kidney disease, unspecified (principal)

== ENCOUNTER → 2023-06-16 | Outpatient (REF) | payer BC, OTHER ==
[2023-06-16 15:28] LABS: HEMATOCRIT 33.2 % (36.0-47.0); HEMOGLOBIN 10.2 g/dl (12.0-15.5); MEAN CORPUSCULAR HEMOGLOBIN 28.3 pg (27.0-33.0); MEAN CORPUSCULAR HGB CONC 30.7 g/dl (32.0-36.5); MEAN CORPUSCULAR VOLUME 92.2 fl (80.0-96.0); PLATELET COUNT, AUTOMATED 232 10^3/uL (150-450)
[2023-06-16 15:46] LABS: HEMOGLOBIN A1c 6.3 % (4.0-6.0)
[2023-06-16 15:59] LABS: FREE T4 1.14 NG/DL (0.89-1.76); THYROID STIMULATING HORMONE 3.538 uIU/ML (0.55-4.78)
[2023-06-16 16:00] LABS: FERRITIN 45.4 NG/ML (7.3-270.7)
[2023-06-16 16:04] LABS: TOTAL IRON BINDING CAPACITY 302 UG/DL (250-425); VITAMIN B12 LEVEL 786 PG/ML (211-911)
[2023-06-16 16:07] LABS: ALBUMIN 3.6 G/DL (3.2-5.2); ALKALINE PHOSPHATASE 71 U/L (46-116); ALT/SGPT 15 U/L (7.0-40); AST/SGOT < 8 U/L (<34); BILIRUBIN,TOTAL 0.4 MG/DL (0.3-1.2); BLOOD UREA NITROGEN 31 MG/DL (9-23); CALCIUM LEVEL 9.2 MG/DL (8.5-10.1); CARBON DIOXIDE LEVEL 26 MMOL/L (20-31); CHLORIDE LEVEL 105 MMOL/L (98-107); CHOLESTEROL LEVEL 105 MG/DL (<200); CHOLESTEROL RISK RATIO 3.59 (<5); CREATININE FOR GFR 1.92 MG/DL (0.55-1.30); GLOMERULAR FILTRATION RATE 29.2 (>51); GLUCOSE, FASTING 133 MG/DL (60-100); HDL CHOLESTEROL 29.2 MG/DL (>40); IRON (FE) 65 UG/DL (50-170); LDL CHOLESTEROL 49.2 MG/DL (<100); NON-HDL-C 75.8 MG/DL; PERCENT SATURATION 21.5 % (13.2-45.0); POTASSIUM SERUM 5.4 MMOL/L (3.5-5.1); SODIUM LEVEL 137 MMOL/L (136-145); TOTAL PROTEIN 6.6 G/DL (5.7-8.2); TRIGLYCERIDES LEVEL 133 MG/DL (<150)
== END ==
LOC: M SFHCADAM 11:06
PROVIDERS: ATTEND Family Medicine
DX: E11.29 Type 2 diabetes mellitus with other diabetic kidney complication (principal); D51.8 Other vitamin B12 deficiency anemias; N18.32 Chronic kidney disease, stage 3b; E78.2 Mixed hyperlipidemia; I25.810 Atherosclerosis of coronary artery bypass graft(s) without angina pectoris

== ENCOUNTER → 2023-06-23 | Outpatient (REF) | payer BC, OTHER ==
[2023-06-24 11:12] LABS: PERCENT SATURATION 11.4 % (13.2-45.0)
== END ==
LOC: M LAB REF 09:55
PROVIDERS: ATTEND Internal Medicine Nephrology
DX: D50.9 Iron deficiency anemia, unspecified (principal)

== ENCOUNTER → 2023-08-26 | Outpatient (REF) | payer BC, OTHER | LOC: M LAB REF 10:25 | PROVIDERS: ATTEND Podiatrist | DX: L03.129 Acute lymphangitis of unspecified part of limb (principal) ==

== ENCOUNTER → 2023-10-01 | Outpatient (REF) | payer BC, OTHER ==
[2023-10-01 13:45] LABS: HEMOGLOBIN 13.1 g/dl (12.0-15.5); MEAN CORPUSCULAR HEMOGLOBIN 28.9 pg (27.0-33.0); MEAN CORPUSCULAR VOLUME 90.5 fl (80.0-96.0); PLATELET COUNT, AUTOMATED 236 10^3/uL (150-450); RED BLOOD COUNT 4.53 10^6/uL (4.00-5.40); WHITE BLOOD COUNT 6.7 10^3/uL (4.0-10.0)
[2023-10-01 14:09] LABS: HEMOGLOBIN A1c 7.7 % (4.0-6.0)
[2023-10-01 14:11] LABS: THYROID STIMULATING HORMONE 3.225 uIU/ML (0.55-4.78)
[2023-10-01 14:14] LABS: VITAMIN B12 LEVEL 1217 PG/ML (211-911)
[2023-10-01 14:15] LABS: FOLATE > 24.00 NG/ML (>5.4); FREE T4 1.14 NG/DL (0.89-1.76)
[2023-10-01 14:18] LABS: ALBUMIN 3.7 G/DL (3.2-5.2); ALKALINE PHOSPHATASE 108 U/L (46-116); ALT/SGPT 13 U/L (7.0-40); AST/SGOT 10 U/L (<34); BILIRUBIN,TOTAL 0.5 MG/DL (0.3-1.2); BLOOD UREA NITROGEN 18 MG/DL (9-23); CALCIUM LEVEL 9.6 MG/DL (8.5-10.1); CARBON DIOXIDE LEVEL 26 MMOL/L (20-31); CHLORIDE LEVEL 104 MMOL/L (98-107); CREATININE FOR GFR 1.59 MG/DL (0.55-1.30); GLOMERULAR FILTRATION RATE 36.3 (>51); GLUCOSE, FASTING 152 MG/DL (60-100); POTASSIUM SERUM 4.2 MMOL/L (3.5-5.1); SODIUM LEVEL 139 MMOL/L (136-145); TOTAL PROTEIN 6.9 G/DL (5.7-8.2)
== END ==
LOC: M SFHCADAM 11:26
PROVIDERS: ATTEND Family Medicine
DX: E11.29 Type 2 diabetes mellitus with other diabetic kidney complication (principal); I25.810 Atherosclerosis of coronary artery bypass graft(s) without angina pectoris; R41.3 Other amnesia

== ENCOUNTER → 2023-10-06 | Outpatient (REF) | payer BC, OTHER | LOC: M LAB REF 12:19 | PROVIDERS: ATTEND Podiatrist | DX: L03.115 Cellulitis of right lower limb (principal) ==

== ENCOUNTER → 2023-10-22 | Outpatient (REF) | payer BC, OTHER | LOC: M LAB REF 16:39 | PROVIDERS: ATTEND Podiatrist | DX: L03.119 Cellulitis of unspecified part of limb (principal) ==

== ENCOUNTER → 2023-11-10 | Outpatient (REF) | payer BC, OTHER | LOC: M LAB REF 16:29 | PROVIDERS: ATTEND Podiatrist | DX: L03.119 Cellulitis of unspecified part of limb (principal) ==

== ENCOUNTER → 2023-12-23 | Outpatient (REF) | payer BC, OTHER | LOC: M LAB REF 16:19 | PROVIDERS: ATTEND Podiatrist | DX: L03.125 Acute lymphangitis of right lower limb (principal) ==

== ENCOUNTER → 2024-01-27 | Outpatient (REF) | payer BC, OTHER ==
[~2024-01-27] MED LIST changes: +ASPI81CH33 PO; +B-12100010 PO; +CALC1CAP31 PO; +CLOP75TA2 PO; +DOXY100C3 PO; +FERR325T19 PO; +FURO40TA2 PO; +INSU100I59 SC; +INSU100I59 SQ; +METO1TAB7 PO; +VALS40TA9 PO
== END ==
LOC: M LAB REF 16:17
PROVIDERS: ATTEND Podiatrist
DX: L03.125 Acute lymphangitis of right lower limb (principal)

== ENCOUNTER 2024-02-16 16:25 | Inpatient (IN) | payer BC, OTHER ==
[~2024-02-16] VITALS: Ht 160 cm; Wt 88.1 kg
[~2024-02-16 16:25] MED LIST changes: -ASPI81CH33 PO; -B-12100010 PO; -CALC1CAP31 PO; -CLOP75TA2 PO; -DOXY100C3 PO; -FERR325T19 PO; -FURO40TA2 PO; -INSU100I59 SC; -INSU100I59 SQ; -METO1TAB7 PO; -VALS40TA9 PO
[2024-02-16 20:56] VITALS: BP 119/74; TEMP 97.7; O2SAT 98
[2024-02-16] MEDS ORDERED: DEXTROSE 50% 50ML SYRINGE IV PRN (21:25)
[2024-02-16] MEDS ORDERED: GLUCAGON INJ 1MG VIAL SC PRN (21:25)
[2024-02-16] MEDS ORDERED: GLUCOSE 4 GM CHEW PO PRN (21:25)
[2024-02-16 21:39] LABS: BASO % 0.4 % (0.0-1.0); EOS # 0.2 10^3/uL (0.0-0.5); EOS % 2.3 % (0.0-3.0); HEMATOCRIT 31.3 % (36.0-47.0); LYMPH # 1.9 10^3/uL (1.5-5.0); LYMPH % 22.3 % (24.0-44.0); MEAN CORPUSCULAR HEMOGLOBIN 29.2 pg (27.0-33.0); MEAN CORPUSCULAR HGB CONC 31.9 g/dl (32.0-36.5); MEAN CORPUSCULAR VOLUME 91.3 fl (80.0-96.0); MONO # 0.6 10^3/uL (0.0-0.8); MONO % 7.5 % (2.0-8.0); NEUTROPHILS # 5.7 10^3/uL (1.5-8.5); NEUTROPHILS % 67.3 % (36.0-66.0); PLATELET COUNT, AUTOMATED 267 10^3/uL (150-450); RED BLOOD COUNT 3.43 10^6/uL (4.00-5.40); WHITE BLOOD COUNT 8.4 10^3/uL (4.0-10.0)
[2024-02-16 22:02] LABS: CREATININE FOR GFR 1.56 MG/DL (0.55-1.30)
[2024-02-16] MEDS ORDERED: INSU100I59 SC (23:00)
[2024-02-16] MEDS ORDERED: INSU100I59 SQ (23:00)
[2024-02-16] MEDS ORDERED: CALC1CAP31 PO (23:00)
[2024-02-16] MEDS ORDERED: VALS40TA9 PO (23:00)
[2024-02-16] MEDS ORDERED: METO1TAB7 PO (23:00)
[2024-02-16] MEDS ORDERED: FERR325T19 PO (23:00)
[2024-02-16] MEDS ORDERED: FURO40TA2 PO (23:00)
[2024-02-16] MEDS ORDERED: ASPI81CH33 PO (23:00)
[2024-02-16] MEDS ORDERED: B-12100010 PO (23:00)
[2024-02-16] MEDS ORDERED: CLOP75TA2 PO (23:00)
[2024-02-16] MEDS ORDERED: HOME MED LIST COMPLETE! XX SCH (23:05)
[2024-02-16] MEDS: PIPERACILLIN/TAZOBACTAM SOD 3.375 GM in D5W MINI-BAG PLUS 50 ML IV ONE (23:22)
[2024-02-16] MEDS: NS 1,000 ML IV SCH (23:22)
[2024-02-17] MEDS ORDERED: UNRESOLVED CLARIFICATION ENTRY XX SCH (00:01)
[2024-02-17] MEDS: VANCOMYCIN HCL 1,000 MG, VIAL MATE ADAPTER 1 EACH in D5W 250 ML IV SCH (00:27)
[2024-02-17] MEDS: INSULIN LISPRO (NovoLOG) PER UNIT SC SCH ×2 (00:27→21:00)
[2024-02-17] MEDS: PIPERACILLIN/TAZOBACTAM SOD 3.375 GM in D5W MINI-BAG PLUS 50 ML IV SCH (04:49)
[2024-02-17 06:00] VITALS: BP 115/71; TEMP 97; O2SAT 99
[2024-02-17 08:09] LABS: BASO % 0.7 % (0.0-1.0); EOS # 0.2 10^3/uL (0.0-0.5); HEMATOCRIT 31.4 % (36.0-47.0); HEMOGLOBIN 9.8 g/dl (12.0-15.5); LYMPH # 1.4 10^3/uL (1.5-5.0); MEAN CORPUSCULAR HEMOGLOBIN 28.7 pg (27.0-33.0); MEAN CORPUSCULAR HGB CONC 31.2 g/dl (32.0-36.5); MEAN CORPUSCULAR VOLUME 91.8 fl (80.0-96.0); MONO # 0.5 10^3/uL (0.0-0.8); MONO % 8.5 % (2.0-8.0); NEUTROPHILS # 3.9 10^3/uL (1.5-8.5); NEUTROPHILS % 64.5 % (36.0-66.0); PLATELET COUNT, AUTOMATED 244 10^3/uL (150-450); RED BLOOD COUNT 3.42 10^6/uL (4.00-5.40); WHITE BLOOD COUNT 6.1 10^3/uL (4.0-10.0)
[2024-02-17 08:34] LABS: ALBUMIN 2.7 G/DL (3.2-5.2); BILIRUBIN,TOTAL 0.4 MG/DL (0.3-1.2); CALCIUM LEVEL 8.6 MG/DL (8.5-10.1); CREATININE FOR GFR 1.68 MG/DL (0.55-1.30); GLOMERULAR FILTRATION RATE 33.9 (>51); POTASSIUM SERUM 4.7 MMOL/L (3.5-5.1)
[2024-02-17 08:45] LABS: PROCALCITONIN 0.27 ng/ml
[2024-02-17] MEDS ORDERED: VANCOMYCIN HCL 1,000 MG, VIAL MATE ADAPTER 1 EACH in D5W 250 ML IV SCH (09:00)
[2024-02-17] MEDS ORDERED: ENOXAPARIN 30MG/0.3ML SYRINGE (J1650 PER 10MG) SC SCH (09:00)
[2024-02-17] MEDS: METOPROLOL SUCC (TopROL XL) 50MG **XL** TAB PO SCH (09:18)
[2024-02-17] MEDS: VANCOMYCIN HCL 750 MG, VIAL MATE ADAPTER 1 EACH in D5W 250 ML IV SCH (11:16)
[2024-02-17 14:19] VITALS: BP 101/57; TEMP 97.2; O2SAT 96
[2024-02-17] MEDS ORDERED: LIDOCAINE 2% 100MG/5ML SDV (FOR ANES.) As Ordered ONE (16:07)
[2024-02-17] MEDS ORDERED: propofoL 200 MG/20 ML VIAL As Ordered ONE (16:07)
[2024-02-17] MEDS ORDERED: fentaNYL 100 MCG/2 ML INJECTION As Ordered ONE (16:07)
[2024-02-17] MEDS ORDERED: MIDAZOLAM INJ 2MG/2ML VIAL As Ordered ONE (16:07)
[2024-02-17] MEDS: LIDOCAINE 2% MDV 20ML VIAL As Ordered ONE (17:37)
[2024-02-17] MEDS: GENTAMICIN SULF 80MG/2ML VIAL As Ordered ONE (17:39)
[2024-02-17] MEDS ORDERED: KETOROLAC 60MG 2ML VIAL As Ordered ONE (17:42)
[2024-02-17 17:43] LABS: C REACTIVE PROTEIN QUANTITATIV 5.1 MG/DL (<1.0)
[2024-02-17 18:45] VITALS: BP 102/61; TEMP 96.8; O2SAT 97
[2024-02-17 20:55] VITALS: BP 99/60; TEMP 97.3; O2SAT 97
[2024-02-17] MEDS: VALSARTAN 40MG TABLET (DIOVAN) PO SCH (21:00)
[2024-02-17] MEDS: LEVEMIR (INSULIN DETEMIR) 1 UNITS/0.01ML SC SCH (21:14)
[2024-02-18 06:00] VITALS: BP 95/59; TEMP 96.8; O2SAT 98
[2024-02-18] MEDS: INSULIN LISPRO (NovoLOG) PER UNIT SC SCH (08:35)
[2024-02-18 08:59] LABS: BASO % 0.4 % (0.0-1.0); EOS # 0.1 10^3/uL (0.0-0.5); EOS % 1.7 % (0.0-3.0); HEMATOCRIT 30.4 % (36.0-47.0); HEMOGLOBIN 9.6 g/dl (12.0-15.5); LYMPH # 1.5 10^3/uL (1.5-5.0); LYMPH % 17.9 % (24.0-44.0); MEAN CORPUSCULAR HEMOGLOBIN 28.6 pg (27.0-33.0); MEAN CORPUSCULAR HGB CONC 31.6 g/dl (32.0-36.5); MEAN CORPUSCULAR VOLUME 90.5 fl (80.0-96.0); MONO # 0.6 10^3/uL (0.0-0.8); MONO % 7.3 % (2.0-8.0); NEUTROPHILS % 72.5 % (36.0-66.0); PLATELET COUNT, AUTOMATED 243 10^3/uL (150-450); RED BLOOD COUNT 3.36 10^6/uL (4.00-5.40); WHITE BLOOD COUNT 8.3 10^3/uL (4.0-10.0)
[2024-02-18] MEDS ORDERED: ENOXAPARIN 40MG/0.4ML SYRINGE (J1650 PER 10MG) SC SCH (09:00)
[2024-02-18 09:32] LABS: CALCIUM LEVEL 8.1 MG/DL (8.5-10.1); CREATININE FOR GFR 1.9 MG/DL (0.55-1.30); GLOMERULAR FILTRATION RATE 29.4 (>51); POTASSIUM SERUM 4.9 MMOL/L (3.5-5.1)
[2024-02-18] MEDS: ASPIRIN 81MG CHEW TABLET PO SCH (11:22)
[2024-02-18] MEDS: FERROUS SULFATE 325MG TAB PO SCH (11:22)
[2024-02-18] MEDS: CYANOCOBALAMIN 500 MCG TAB PO SCH (11:23)
[2024-02-18] MEDS: CALCITRIOL 0.25 MCG CAP (S0169) PO SCH (11:24)
[2024-02-18] MEDS: GABAPENTIN 300 MG CAP PO SCH (11:24)
[2024-02-18] MEDS: NS 500 ML IV ONE (11:37)
[2024-02-18] MEDS: HEPARIN SOD (PORCINE) 5000UNITS/ML 1ML VIAL/SYRINGE SQ SCH (12:59)
[2024-02-18 14:00] VITALS: BP 118/59; TEMP 97.2; O2SAT 98
[2024-02-18 21:34] VITALS: BP 137/75; TEMP 97.2; O2SAT 98
[2024-02-18] MEDS: ATORVASTATIN 20 MG TAB PO SCH (21:48)
[2024-02-19] VITALS (10 sets, daily range): BP systolic 96–124; BP diastolic 56–70; TEMP 96.6–97.9; O2SAT 97–100
[2024-02-19 07:02] LABS: BASO % 0.3 % (0.0-1.0); EOS # 0.2 10^3/uL (0.0-0.5); EOS % 2.3 % (0.0-3.0); HEMATOCRIT 28.8 % (36.0-47.0); HEMOGLOBIN 8.8 g/dl (12.0-15.5); LYMPH # 1.8 10^3/uL (1.5-5.0); LYMPH % 27.2 % (24.0-44.0); MEAN CORPUSCULAR HEMOGLOBIN 27.9 pg (27.0-33.0); MEAN CORPUSCULAR HGB CONC 30.6 g/dl (32.0-36.5); MEAN CORPUSCULAR VOLUME 91.4 fl (80.0-96.0); MONO # 0.6 10^3/uL (0.0-0.8); MONO % 9.6 % (2.0-8.0); NEUTROPHILS % 60.1 % (36.0-66.0); PLATELET COUNT, AUTOMATED 224 10^3/uL (150-450); RED BLOOD COUNT 3.15 10^6/uL (4.00-5.40); WHITE BLOOD COUNT 6.7 10^3/uL (4.0-10.0)
[2024-02-19 07:28] LABS: CALCIUM LEVEL 8.2 MG/DL (8.5-10.1); CREATININE FOR GFR 1.86 MG/DL (0.55-1.30); GLOMERULAR FILTRATION RATE 30.2 (>51); POTASSIUM SERUM 4.7 MMOL/L (3.5-5.1)
[2024-02-19] MEDS: ROPIvacaine 0.5% 30ML VIAL As Ordered ONE (12:25)
[2024-02-19] MEDS: TOBRAMYCIN SULF 1.2GM VIAL As Ordered ONE (12:47)
[2024-02-19 13:00] LABS: C REACTIVE PROTEIN QUANTITATIV 2.5 MG/DL (<1.0)
[2024-02-19] MEDS ORDERED: INSULIN LISPRO (NovoLOG) PER UNIT SC PRN (14:40)
[2024-02-19] MEDS ORDERED: DEXTROSE 50% 50ML SYRINGE IV PRN (14:40)
[2024-02-19] MEDS ORDERED: oxyCODONE 5MG TAB PO PRN ×2 (14:40→21:55)
[2024-02-19] MEDS ORDERED: ONDANSETRON 4MG 2ML VIAL IV PRN (14:40)
[2024-02-19] MEDS: LR 1,000 ML IV SCH (14:40)
[2024-02-19] MEDS ORDERED: GLUCOSE 4 GM CHEW PO PRN (14:40)
[2024-02-19] MEDS ORDERED: GLUCAGON INJ 1MG VIAL SC PRN (14:40)
[2024-02-19] MEDS ORDERED: MORPHINE 2 MG/ML 1ML VIAL IV PRN (14:40)
[2024-02-19] MEDS ORDERED: METOCLOPRAMIDE INJ 10MG/2ML VIAL IV PRN (14:40)
[2024-02-19] MEDS: PIPERACILLIN/TAZOBACTAM SOD 2.25 GM in D5W MINI-BAG PLUS 50 ML IV SCH (16:49)
[2024-02-19] MEDS: ACETAMINOPHEN TAB 650MG DOSE (2X325MG) PO PRN (21:27)
[2024-02-20] VITALS (8 sets, daily range): BP systolic 100–127; BP diastolic 55–68; TEMP 97–97.8; O2SAT 96–100
[2024-02-20 07:22] LABS: BASO % 0.4 % (0.0-1.0); EOS # 0.1 10^3/uL (0.0-0.5); EOS % 1.9 % (0.0-3.0); HEMATOCRIT 25.1 % (36.0-47.0); HEMOGLOBIN 7.6 g/dl (12.0-15.5); LYMPH # 1.7 10^3/uL (1.5-5.0); LYMPH % 22.9 % (24.0-44.0); MEAN CORPUSCULAR HEMOGLOBIN 28.1 pg (27.0-33.0); MEAN CORPUSCULAR HGB CONC 30.3 g/dl (32.0-36.5); MONO # 0.7 10^3/uL (0.0-0.8); NEUTROPHILS # 4.7 10^3/uL (1.5-8.5); NEUTROPHILS % 65.2 % (36.0-66.0); PLATELET COUNT, AUTOMATED 211 10^3/uL (150-450); WHITE BLOOD COUNT 7.2 10^3/uL (4.0-10.0)
[2024-02-20 07:40] LABS: CALCIUM LEVEL 8.2 MG/DL (8.5-10.1); CREATININE FOR GFR 1.87 MG/DL (0.55-1.30); POTASSIUM SERUM 4.9 MMOL/L (3.5-5.1)
[2024-02-20] MEDS: METOPROLOL SUCC *XL* 25MG TAB (TopROL *XL*) PO SCH (20:30)
[2024-02-21 05:18] VITALS: BP 112/58; TEMP 97.5; O2SAT 95
[2024-02-21 06:16] LABS: BASO % 0.5 % (0.0-1.0); EOS # 0.2 10^3/uL (0.0-0.5); EOS % 2.8 % (0.0-3.0); HEMATOCRIT 28.7 % (36.0-47.0); LYMPH # 2.1 10^3/uL (1.5-5.0); LYMPH % 27.8 % (24.0-44.0); MEAN CORPUSCULAR HEMOGLOBIN 28.4 pg (27.0-33.0); MEAN CORPUSCULAR HGB CONC 31.4 g/dl (32.0-36.5); MEAN CORPUSCULAR VOLUME 90.5 fl (80.0-96.0); MONO # 0.5 10^3/uL (0.0-0.8); MONO % 6.5 % (2.0-8.0); NEUTROPHILS # 4.6 10^3/uL (1.5-8.5); NEUTROPHILS % 60.7 % (36.0-66.0); PLATELET COUNT, AUTOMATED 240 10^3/uL (150-450); RED BLOOD COUNT 3.17 10^6/uL (4.00-5.40); WHITE BLOOD COUNT 7.5 10^3/uL (4.0-10.0)
[2024-02-21 06:41] LABS: CALCIUM LEVEL 8.7 MG/DL (8.5-10.1); CREATININE FOR GFR 1.86 MG/DL (0.55-1.30); GLOMERULAR FILTRATION RATE 30.2 (>51); POTASSIUM SERUM 4.4 MMOL/L (3.5-5.1)
[2024-02-21 08:28] VITALS: BP 110/59
[2024-02-21 12:16] LABS: PERCENT SATURATION 25.2 % (13.2-45.0)
[2024-02-21] MEDS ORDERED: DOXY100C3 PO (14:48)
== END 2024-02-21 15:35 | disposition home or self-care (01) | DRG 314 ==
LOC: M MS5PR 18:41 → EEVIPCON 18:41
PROVIDERS: ADMIT Internal Medicine; ATTEND Internal Medicine Nephrology
PROC: 0JBQ0ZZ Excision of Right Foot Subcutaneous Tissue and Fascia, Open Approach (ICD-10-PCS; principal; 2024-02-17 16:30)
PROC: 0QBN0ZZ Excision of Right Metatarsal, Open Approach (ICD-10-PCS; 2024-02-19)
PROC: 30233N1 Transfusion of Nonautologous Red Blood Cells into Peripheral Vein, Percutaneous Approach (ICD-10-PCS; 2024-02-20)
DX: T87.43 Infection of amputation stump, right lower extremity (principal); E11.42 Type 2 diabetes mellitus with diabetic polyneuropathy; E11.22 Type 2 diabetes mellitus with diabetic chronic kidney disease; N17.9 Acute kidney failure, unspecified; N18.32 Chronic kidney disease, stage 3b; E11.621 Type 2 diabetes mellitus with foot ulcer; E11.69 Type 2 diabetes mellitus with other specified complication; L97.518 Non-pressure chronic ulcer of other part of right foot with other specified severity; M86.8X7 Other osteomyelitis, ankle and foot; L03.115 Cellulitis of right lower limb; L02.611 Cutaneous abscess of right foot; I12.9 Hypertensive chronic kidney disease with stage 1 through stage 4 chronic kidney disease, or unspecified chronic kidney disease; E78.5 Hyperlipidemia, unspecified; I25.10 Atherosclerotic heart disease of native coronary artery without angina pectoris; J45.909 Unspecified asthma, uncomplicated; D63.1 Anemia in chronic kidney disease; E55.9 Vitamin D deficiency, unspecified; E66.9 Obesity, unspecified; D50.9 Iron deficiency anemia, unspecified; B95.4 Other streptococcus as the cause of diseases classified elsewhere; Z68.34 Body mass index [BMI] 34.0-34.9, adult; Z79.82 Long term (current) use of aspirin; Z79.4 Long term (current) use of insulin; Z79.02 Long term (current) use of antithrombotics/antiplatelets; Z79.899 Other long term (current) drug therapy; Z95.5 Presence of coronary angioplasty implant and graft

== ENCOUNTER → 2024-04-12 | Outpatient (REF) | payer BC, OTHER ==
[~2024-04-12] MED LIST changes: +ASPI81CH33 PO; +B-12100010 PO; +CALC1CAP31 PO; +CLOP75TA2 PO; +DOXY100C3 PO; +FERR325T19 PO; +FURO40TA2 PO; +INSU100I59 SC; +INSU100I59 SQ; +METO1TAB7 PO; +VALS40TA9 PO
== END ==
LOC: M LAB REF 19:13
PROVIDERS: ATTEND Podiatrist
DX: L03.123 Acute lymphangitis of right upper limb (principal)

== ENCOUNTER 2024-06-15 13:15 | Inpatient (IN) | payer BC, OTHER ==
[~2024-06-15] VITALS: Ht 160 cm; Wt 90.3 kg
[2024-06-15] MEDS ORDERED: BENZ200C70 PO (15:05)
[2024-06-15] MEDS: LIDOCAINE 4% CREAM 5GM (LMX4) TOP ONE (15:32)
[2024-06-15 15:36] LABS: VENOUS BASE EXCESS 1.4 (-2.0-2.0); VENOUS HCO3 26.4 MMOL/L (23.0-27.0); VENOUS O2 SATURATION 51.3 % (60.0-80.0); VENOUS PARTIAL PRESSURE CO2 43.5 mmHg (38.0-50.0); VENOUS PARTIAL PRESSURE O2 27.7 mmHg (30.0-50.0); VENOUS PH 7.401 UNITS (7.330-7.430); VENOUS STANDARD HCO3 24.9 MMOL/L; VENOUS TOTAL CO2 27.7 MMOL/L (24.0-28.0)
[2024-06-15 15:54] LABS: BASO % 0.3 % (0.0-1.0); EOS # 0.2 10^3/uL (0.0-0.5); EOS % 1.2 % (0.0-3.0); HEMATOCRIT 29.6 % (36.0-47.0); HEMOGLOBIN 8.8 g/dl (12.0-15.5); LYMPH # 2.3 10^3/uL (1.5-5.0); LYMPH % 16.5 % (24.0-44.0); MEAN CORPUSCULAR HEMOGLOBIN 27.2 pg (27.0-33.0); MEAN CORPUSCULAR HGB CONC 29.7 g/dl (32.0-36.5); MEAN CORPUSCULAR VOLUME 91.4 fl (80.0-96.0); MONO # 0.9 10^3/uL (0.0-0.8); MONO % 6.7 % (2.0-8.0); NEUTROPHILS # 10.4 10^3/uL (1.5-8.5); NEUTROPHILS % 73.6 % (36.0-66.0); PLATELET COUNT, AUTOMATED 380 10^3/uL (150-450); RED BLOOD COUNT 3.24 10^6/uL (4.00-5.40); WHITE BLOOD COUNT 14.1 10^3/uL (4.0-10.0)
[2024-06-15 16:01] LABS: ERYTHROCYTE SEDIMENTATION RATE 49 mm/hr (0-30)
[2024-06-15 16:08] LABS: CALCIUM LEVEL 8.9 MG/DL (8.5-10.1); CREATININE FOR GFR 1.57 MG/DL (0.55-1.30); GLOMERULAR FILTRATION RATE 36.7 (>51); POTASSIUM SERUM 4.7 MMOL/L (3.5-5.1)
[2024-06-15] MEDS ORDERED: cefTRIAXone SOD 2 GM in D5W MINI-BAG PLUS 50 ML IV ONE (16:10)
[2024-06-15] MEDS ORDERED: VANCOMYCIN HCL 750 MG, VIAL MATE ADAPTER 1 EACH in D5W 250 ML IV ONE (16:10)
[2024-06-15 16:36] LABS: HEMOGLOBIN A1c 8.7 % (4.0-6.0)
[2024-06-15] MEDS ORDERED: DEXTROSE 50% 50ML SYRINGE IV PRN (17:45)
[2024-06-15] MEDS ORDERED: GLUCOSE 4 GM CHEW PO PRN (17:45)
[2024-06-15] MEDS ORDERED: GLUCAGON INJ 1MG VIAL SC PRN (17:45)
[2024-06-15] MEDS: CEFEPIME HCL 2 GM in D5W MINI-BAG PLUS 50 ML IV SCH (18:02)
[2024-06-15] MEDS ORDERED: ISOS1TAB35 PO (18:31)
[2024-06-15] MEDS ORDERED: DULA4.5P SQ (18:31)
[2024-06-15] MEDS ORDERED: ATOR80TA59 PO (18:31)
[2024-06-15] MEDS ORDERED: HOME MED LIST COMPLETE! XX SCH (18:35)
[2024-06-15] MEDS ORDERED: BENZONATATE 100MG CAPSULE PO PRN (19:05)
[2024-06-15] MEDS: LEVEMIR (INSULIN DETEMIR) 1 UNITS/0.01ML SC SCH (20:11)
[2024-06-15] MEDS: ATORVASTATIN 20 MG TAB PO SCH (20:12)
[2024-06-15] MEDS: GABAPENTIN 300 MG CAP PO SCH (20:12)
[2024-06-15] MEDS: INSULIN LISPRO (NovoLOG) PER UNIT SC SCH (20:13)
[2024-06-15] MEDS: LINEZOLID 600 MG in IV 1 EA IV SCH (20:13)
[2024-06-15] MEDS: METOPROLOL SUCC (TopROL XL) 50MG **XL** TAB PO SCH (20:28)
[2024-06-16 00:20] VITALS: BP 115/66; TEMP 97.9; O2SAT 94
[2024-06-16 04:30] VITALS: BP 115/62; TEMP 97.5; O2SAT 100
[2024-06-16 06:21] LABS: BASO % 0.2 % (0.0-1.0); EOS # 0.2 10^3/uL (0.0-0.5); EOS % 1.8 % (0.0-3.0); HEMATOCRIT 27.4 % (36.0-47.0); HEMOGLOBIN 8.1 g/dl (12.0-15.5); LYMPH # 2.3 10^3/uL (1.5-5.0); LYMPH % 22.5 % (24.0-44.0); MEAN CORPUSCULAR HEMOGLOBIN 27.6 pg (27.0-33.0); MEAN CORPUSCULAR HGB CONC 29.6 g/dl (32.0-36.5); MEAN CORPUSCULAR VOLUME 93.2 fl (80.0-96.0); MONO # 0.8 10^3/uL (0.0-0.8); MONO % 7.6 % (2.0-8.0); NEUTROPHILS # 6.8 10^3/uL (1.5-8.5); NEUTROPHILS % 66.5 % (36.0-66.0); PLATELET COUNT, AUTOMATED 335 10^3/uL (150-450); RED BLOOD COUNT 2.94 10^6/uL (4.00-5.40); WHITE BLOOD COUNT 10.2 10^3/uL (4.0-10.0)
[2024-06-16 06:33] LABS: CALCIUM LEVEL 8.8 MG/DL (8.5-10.1); CREATININE FOR GFR 1.73 MG/DL (0.55-1.30); GLOMERULAR FILTRATION RATE 32.8 (>51); MAGNESIUM LEVEL 1.8 MG/DL (1.8-2.4)
[2024-06-16] MEDS: FUROSEMIDE 40 MG TAB PO SCH (09:00)
[2024-06-16] MEDS: HEPARIN SOD (PORCINE) 5000UNITS/ML 1ML VIAL/SYRINGE SQ SCH (09:00)
[2024-06-16] MEDS: INSULIN LISPRO (NovoLOG) PER UNIT SC SCH ×2 (09:05→17:21)
[2024-06-16] MEDS: ASPIRIN 81MG CHEW TABLET PO SCH (09:06)
[2024-06-16] MEDS: CLOPIDOGREL 75 MG TAB PO SCH (09:06)
[2024-06-16] MEDS: LEVEMIR (INSULIN DETEMIR) 1 UNITS/0.01ML SC SCH (09:06)
[2024-06-16 11:30] VITALS: BP 99/49; TEMP 98.2; O2SAT 96
[2024-06-16 20:00] VITALS: BP 97/50; TEMP 98.1; O2SAT 98
[2024-06-16] MEDS: LINEZOLID 600MG TABLET (ZYVOX) PO SCH (22:15)
[2024-06-17] VITALS (8 sets, daily range): BP systolic 97–115; BP diastolic 52–66; TEMP 97.3–98.1; O2SAT 95–100
[2024-06-17 05:41] LABS: BASO % 0.4 % (0.0-1.0); EOS # 0.1 10^3/uL (0.0-0.5); EOS % 1.6 % (0.0-3.0); HEMATOCRIT 29.2 % (36.0-47.0); HEMOGLOBIN 8.5 g/dl (12.0-15.5); LYMPH # 1.8 10^3/uL (1.5-5.0); LYMPH % 22.1 % (24.0-44.0); MEAN CORPUSCULAR HGB CONC 29.1 g/dl (32.0-36.5); MEAN CORPUSCULAR VOLUME 92.7 fl (80.0-96.0); MONO # 0.6 10^3/uL (0.0-0.8); MONO % 7.6 % (2.0-8.0); NEUTROPHILS # 5.4 10^3/uL (1.5-8.5); NEUTROPHILS % 67.2 % (36.0-66.0); PLATELET COUNT, AUTOMATED 314 10^3/uL (150-450); RED BLOOD COUNT 3.15 10^6/uL (4.00-5.40); WHITE BLOOD COUNT 8.1 10^3/uL (4.0-10.0)
[2024-06-17 06:03] LABS: CALCIUM LEVEL 8.9 MG/DL (8.5-10.1); CREATININE FOR GFR 1.81 MG/DL (0.55-1.30); GLOMERULAR FILTRATION RATE 31.1 (>51); MAGNESIUM LEVEL 1.9 MG/DL (1.8-2.4); POTASSIUM SERUM 4.6 MMOL/L (3.5-5.1)
[2024-06-17] MEDS: ACETAMINOPHEN TAB 650MG DOSE (2X325MG) PO PRN (09:01)
[2024-06-17] MEDS: SILVER SULFADIAZINE 1% CR 50 GM JAR As Ordered ONE (15:34)
[2024-06-17] MEDS ORDERED: MIDAZOLAM INJ 2MG/2ML VIAL As Ordered ONE (15:47)
[2024-06-17] MEDS ORDERED: ONDANSETRON 4MG 2ML VIAL As Ordered ONE (15:47)
[2024-06-17] MEDS ORDERED: propofoL 200 MG/20 ML VIAL As Ordered ONE (15:47)
[2024-06-17] MEDS ORDERED: LIDOCAINE 2% 100MG/5ML SDV (FOR ANES.) As Ordered ONE (15:47)
[2024-06-17] MEDS ORDERED: fentaNYL 100 MCG/2 ML INJECTION As Ordered ONE (15:48)
[2024-06-17] MEDS ORDERED: ACETAMINOPHEN 1000MG 100ML IV BAG As Ordered ONE (15:49)
[2024-06-17] MEDS: LIDOCAINE 2% MDV 20ML VIAL As Ordered ONE (16:31)
[2024-06-17] MEDS: TOBRAMYCIN SULF 1.2GM VIAL As Ordered ONE (16:53)
[2024-06-17] MEDS ORDERED: PHENYLephrine 500MCG 5ML (100MCG/ML) SYRINGE As Ordered ONE (17:14)
[2024-06-17] MEDS ORDERED: dexmedeTOMIDine (4MCG/ML)200MCG/50ML BTL (PRECEDEX) As Ordered ONE (18:04)
[2024-06-17] MEDS: CEFEPIME 1GM VIAL (MAXIPIME) As Ordered ONE (18:05)
[2024-06-17] MEDS: INSULIN LISPRO (NovoLOG) PER UNIT SC SCH (21:00)
[2024-06-18] VITALS (17 sets, daily range): BP systolic 100–115; BP diastolic 49–76; TEMP 97.3–98.2; O2SAT 95–100
[2024-06-18 07:20] LABS: BASO % 0.1 % (0.0-1.0); EOS % 0.1 % (0.0-3.0); LYMPH # 1.3 10^3/uL (1.5-5.0); LYMPH % 7.9 % (24.0-44.0); MEAN CORPUSCULAR HEMOGLOBIN 27.2 pg (27.0-33.0); MEAN CORPUSCULAR HGB CONC 28.9 g/dl (32.0-36.5); MONO # 0.8 10^3/uL (0.0-0.8); MONO % 4.8 % (2.0-8.0); NEUTROPHILS # 14.5 10^3/uL (1.5-8.5); NEUTROPHILS % 86.1 % (36.0-66.0); PLATELET COUNT, AUTOMATED 380 10^3/uL (150-450); WHITE BLOOD COUNT 16.9 10^3/uL (4.0-10.0)
[2024-06-18 07:36] LABS: HEMATOCRIT 23.5 % (36.0-47.0); HEMOGLOBIN 6.8 g/dl (12.0-15.5)
[2024-06-18 07:50] LABS: CALCIUM LEVEL 8.3 MG/DL (8.5-10.1); CREATININE FOR GFR 1.66 MG/DL (0.55-1.30); GLOMERULAR FILTRATION RATE 34.4 (>51); MAGNESIUM LEVEL 1.8 MG/DL (1.8-2.4); POTASSIUM SERUM 4.3 MMOL/L (3.5-5.1)
[2024-06-18] MEDS: INSULIN LISPRO (NovoLOG) PER UNIT SC SCH ×2 (08:16→13:24)
[2024-06-18] MEDS ORDERED: HEPARIN SOD (PORCINE) 5000UNITS/ML 1ML VIAL/SYRINGE SQ SCH (11:40)
[2024-06-18] MEDS: LIDOCAINE 5% (LIDODERM) PATCH TD SCH (13:00)
[2024-06-18] MEDS: CLOPIDOGREL 75 MG TAB PO SCH (13:05)
[2024-06-18] MEDS: CYANOCOBALAMIN 500 MCG TAB PO SCH (13:22)
[2024-06-18] MEDS: CALCITRIOL 0.25 MCG CAP (S0169) PO SCH (13:22)
[2024-06-19 04:00] VITALS: BP 115/62; TEMP 97.5; O2SAT 100
[2024-06-19 06:11] LABS: BASO % 0.4 % (0.0-1.0); EOS # 0.1 10^3/uL (0.0-0.5); EOS % 0.8 % (0.0-3.0); HEMOGLOBIN 8.5 g/dl (12.0-15.5); LYMPH # 2.3 10^3/uL (1.5-5.0); LYMPH % 24.6 % (24.0-44.0); MEAN CORPUSCULAR HGB CONC 31.5 g/dl (32.0-36.5); MEAN CORPUSCULAR VOLUME 92.2 fl (80.0-96.0); MONO # 0.6 10^3/uL (0.0-0.8); MONO % 5.9 % (2.0-8.0); NEUTROPHILS # 6.2 10^3/uL (1.5-8.5); NEUTROPHILS % 67.4 % (36.0-66.0); RED BLOOD COUNT 2.93 10^6/uL (4.00-5.40); WHITE BLOOD COUNT 9.3 10^3/uL (4.0-10.0)
[2024-06-19 06:26] LABS: C REACTIVE PROTEIN QUANTITATIV 1.4 MG/DL (<1.0)
[2024-06-19 06:27] LABS: PLATELET COUNT, AUTOMATED 272 10^3/uL (150-450)
[2024-06-19 06:28] LABS: CALCIUM LEVEL 8.4 MG/DL (8.5-10.1); CREATININE FOR GFR 1.85 MG/DL (0.55-1.30); GLOMERULAR FILTRATION RATE 30.4 (>51); MAGNESIUM LEVEL 1.8 MG/DL (1.8-2.4); POTASSIUM SERUM 4.5 MMOL/L (3.5-5.1)
[2024-06-19] MEDS ORDERED: ASPIRIN 81MG CHEW TABLET PEG SCH (09:00)
[2024-06-19 12:24] VITALS: BP 118/58; TEMP 97.7; O2SAT 99
[2024-06-19] MEDS: INSULIN LISPRO (NovoLOG) PER UNIT SC SCH (18:15)
[2024-06-19 20:00] VITALS: BP 112/55; TEMP 97.7; O2SAT 98
[2024-06-19] MEDS ORDERED: LEVEMIR (INSULIN DETEMIR) 1 UNITS/0.01ML SC SCH (21:00)
[2024-06-19] MEDS: LEVEMIR (INSULIN DETEMIR) 1 UNITS/0.01ML SC SCH (21:33)
[2024-06-20 04:00] VITALS: BP 90/40; TEMP 98; O2SAT 93
[2024-06-20] MEDS: NS 500 ML IV ONE (05:01)
[2024-06-20 06:00] VITALS: BP 107/59
[2024-06-20 06:21] LABS: BASO # 0.1 10^3/uL (0.0-0.2); BASO % 0.7 % (0.0-1.0); EOS # 0.1 10^3/uL (0.0-0.5); EOS % 1.9 % (0.0-3.0); HEMATOCRIT 26.9 % (36.0-47.0); HEMOGLOBIN 8.3 g/dl (12.0-15.5); LYMPH # 2.1 10^3/uL (1.5-5.0); MEAN CORPUSCULAR HEMOGLOBIN 28.5 pg (27.0-33.0); MEAN CORPUSCULAR HGB CONC 30.9 g/dl (32.0-36.5); MEAN CORPUSCULAR VOLUME 92.4 fl (80.0-96.0); MONO # 0.6 10^3/uL (0.0-0.8); MONO % 8.1 % (2.0-8.0); NEUTROPHILS # 4.5 10^3/uL (1.5-8.5); PLATELET COUNT, AUTOMATED 257 10^3/uL (150-450); RED BLOOD COUNT 2.91 10^6/uL (4.00-5.40); WHITE BLOOD COUNT 7.5 10^3/uL (4.0-10.0)
[2024-06-20 06:48] LABS: C REACTIVE PROTEIN QUANTITATIV 0.9 MG/DL (<1.0)
[2024-06-20 06:50] LABS: CALCIUM LEVEL 8.4 MG/DL (8.5-10.1); CREATININE FOR GFR 1.77 MG/DL (0.55-1.30); GLOMERULAR FILTRATION RATE 31.9 (>51); MAGNESIUM LEVEL 1.7 MG/DL (1.8-2.4); POTASSIUM SERUM 4.5 MMOL/L (3.5-5.1)
[2024-06-20] MEDS: METOPROLOL SUCC *XL* 25MG TAB (TopROL *XL*) PO SCH (09:00)
[2024-06-20] MEDS: MAG SULF 1GM/100ML (MAG RUN) 1 GM in IV 1 EA IV ONE (09:47)
[2024-06-20 12:00] VITALS: BP 104/58; TEMP 97.9; O2SAT 100
[2024-06-20 19:35] VITALS: BP 120/66; TEMP 97.7; O2SAT 99
[2024-06-21 04:30] VITALS: BP 91/60; TEMP 97.2; O2SAT 91
[2024-06-21 05:58] LABS: BASO % 0.6 % (0.0-1.0); EOS # 0.2 10^3/uL (0.0-0.5); EOS % 2.3 % (0.0-3.0); HEMATOCRIT 27.7 % (36.0-47.0); HEMOGLOBIN 8.5 g/dl (12.0-15.5); LYMPH # 2.5 10^3/uL (1.5-5.0); LYMPH % 34.9 % (24.0-44.0); MEAN CORPUSCULAR HEMOGLOBIN 28.4 pg (27.0-33.0); MEAN CORPUSCULAR HGB CONC 30.7 g/dl (32.0-36.5); MEAN CORPUSCULAR VOLUME 92.6 fl (80.0-96.0); MONO # 0.5 10^3/uL (0.0-0.8); MONO % 6.9 % (2.0-8.0); NEUTROPHILS % 54.7 % (36.0-66.0); PLATELET COUNT, AUTOMATED 255 10^3/uL (150-450); RED BLOOD COUNT 2.99 10^6/uL (4.00-5.40); WHITE BLOOD COUNT 7.3 10^3/uL (4.0-10.0)
[2024-06-21 06:21] LABS: C REACTIVE PROTEIN QUANTITATIV 0.5 MG/DL (<1.0)
[2024-06-21 06:22] LABS: CALCIUM LEVEL 8.9 MG/DL (8.5-10.1); CREATININE FOR GFR 1.83 MG/DL (0.55-1.30); GLOMERULAR FILTRATION RATE 30.7 (>51); POTASSIUM SERUM 4.5 MMOL/L (3.5-5.1)
[2024-06-21 08:30] VITALS: BP 100/60
[2024-06-21] MEDS: NS 1,000 ML IV SCH (08:31)
[2024-06-21] MEDS: LEVEMIR (INSULIN DETEMIR) 1 UNITS/0.01ML SC SCH (08:33)
[2024-06-21] MEDS ORDERED: CEPH500C PO (10:38)
[2024-06-21] MEDS ORDERED: BACI1TAB20 PO (10:44)
[2024-06-21 12:00] VITALS: BP 86/56; TEMP 97.5; O2SAT 96
[2024-06-21 14:04] VITALS: BP 110/60
[2024-06-21] MEDS ORDERED: METO1TAB32 PO (15:13)
== END 2024-06-21 15:47 | disposition home health service (06) | DRG 314 ==
LOC: M ED 13:15 → M ED INP 16:41 → M MSPAV 06-16 00:15
PROVIDERS: ADMIT Student in an Organized Health Care Education/Training Program; ATTEND Internal Medicine
PROC: 0Y6R0Z0 Detachment at Right 2nd Toe, Complete, Open Approach (ICD-10-PCS; 2024-06-17)
PROC: 0Y6T0Z0 Detachment at Right 3rd Toe, Complete, Open Approach (ICD-10-PCS; 2024-06-17)
PROC: 0Y6V0Z0 Detachment at Right 4th Toe, Complete, Open Approach (ICD-10-PCS; 2024-06-17)
PROC: 0Y6X0Z0 Detachment at Right 5th Toe, Complete, Open Approach (ICD-10-PCS; 2024-06-17)
PROC: 0Y6P0Z0 Detachment at Right 1st Toe, Complete, Open Approach (ICD-10-PCS; principal; 2024-06-17 15:00)
PROC: 30233N1 Transfusion of Nonautologous Red Blood Cells into Peripheral Vein, Percutaneous Approach (ICD-10-PCS; 2024-06-18)
DX: E11.69 Type 2 diabetes mellitus with other specified complication (principal); J18.9 Pneumonia, unspecified organism; M86.171 Other acute osteomyelitis, right ankle and foot; E11.22 Type 2 diabetes mellitus with diabetic chronic kidney disease; E11.40 Type 2 diabetes mellitus with diabetic neuropathy, unspecified; N18.32 Chronic kidney disease, stage 3b; E11.610 Type 2 diabetes mellitus with diabetic neuropathic arthropathy; L97.519 Non-pressure chronic ulcer of other part of right foot with unspecified severity; I12.9 Hypertensive chronic kidney disease with stage 1 through stage 4 chronic kidney disease, or unspecified chronic kidney disease; E66.9 Obesity, unspecified; E55.9 Vitamin D deficiency, unspecified; E78.5 Hyperlipidemia, unspecified; I25.10 Atherosclerotic heart disease of native coronary artery without angina pectoris; J45.909 Unspecified asthma, uncomplicated; Z89.421 Acquired absence of other right toe(s); Z89.411 Acquired absence of right great toe; Z98.1 Arthrodesis status; L02.611 Cutaneous abscess of right foot; Z79.82 Long term (current) use of aspirin; Z79.02 Long term (current) use of antithrombotics/antiplatelets; Z79.4 Long term (current) use of insulin; Z79.899 Other long term (current) drug therapy; Z68.35 Body mass index [BMI] 35.0-35.9, adult; E11.621 Type 2 diabetes mellitus with foot ulcer

== ENCOUNTER → 2024-06-28 | Outpatient (REF) | payer BC, OTHER ==
[~2024-06-28] MED LIST changes: +ATOR80TA59 PO; +BACI1TAB20 PO; +BENZ200C70 PO; +CEPH500C PO; +DULA4.5P SQ; +ISOS1TAB35 PO; +METO1TAB32 PO
[2024-06-28 13:26] LABS: BASO # 0.1 10^3/uL (0.0-0.2); BASO % 0.7 % (0.0-1.0); EOS # 0.2 10^3/uL (0.0-0.5); EOS % 1.9 % (0.0-3.0); HEMATOCRIT 33.8 % (36.0-47.0); HEMOGLOBIN 10.2 g/dl (12.0-15.5); LYMPH # 2.9 10^3/uL (1.5-5.0); LYMPH % 27.2 % (24.0-44.0); MEAN CORPUSCULAR HEMOGLOBIN 28.7 pg (27.0-33.0); MEAN CORPUSCULAR HGB CONC 30.2 g/dl (32.0-36.5); MEAN CORPUSCULAR VOLUME 95.2 fl (80.0-96.0); MONO # 0.7 10^3/uL (0.0-0.8); NEUTROPHILS # 6.4 10^3/uL (1.5-8.5); NEUTROPHILS % 61.1 % (36.0-66.0); PLATELET COUNT, AUTOMATED 286 10^3/uL (150-450); RED BLOOD COUNT 3.55 10^6/uL (4.00-5.40); WHITE BLOOD COUNT 10.5 10^3/uL (4.0-10.0)
[2024-06-28 13:29] LABS: C REACTIVE PROTEIN QUANTITATIV < 0.40 MG/DL (<1.0)
[2024-06-28 13:31] LABS: VITAMIN B12 LEVEL 1352 PG/ML (211-911)
[2024-06-28 13:32] LABS: FREE T4 1.27 NG/DL (0.89-1.76); THYROID STIMULATING HORMONE 3.398 uIU/ML (0.55-4.78)
[2024-06-28 13:33] LABS: ALBUMIN 3.5 G/DL (3.2-5.2); ALKALINE PHOSPHATASE 96 U/L (46-116); ALT/SGPT 17 U/L (7.0-40); AST/SGOT 10 U/L (<34); BILIRUBIN,TOTAL 0.5 MG/DL (0.3-1.2); BLOOD UREA NITROGEN 28 MG/DL (9-23); CALCIUM LEVEL 10.1 MG/DL (8.5-10.1); CARBON DIOXIDE LEVEL 30 MMOL/L (20-31); CHLORIDE LEVEL 104 MMOL/L (98-107); CHOLESTEROL LEVEL 137 MG/DL (<200); CHOLESTEROL RISK RATIO 4.08 (<5); CREATININE FOR GFR 1.49 MG/DL (0.55-1.30); FOLATE 9.31 NG/ML (>5.4); GLUCOSE, FASTING 139 MG/DL (60-100); HDL CHOLESTEROL 33.5 MG/DL (>40); LDL CHOLESTEROL 59.9 MG/DL (<100); NON-HDL-C 103.5 MG/DL; POTASSIUM SERUM 4.9 MMOL/L (3.5-5.1); SODIUM LEVEL 141 MMOL/L (136-145); TRIGLYCERIDES LEVEL 218 MG/DL (<150)
== END ==
LOC: M SFHCADAM 09:44
PROVIDERS: ATTEND Family Medicine
DX: M86.9 Osteomyelitis, unspecified (principal); J18.9 Pneumonia, unspecified organism; E11.29 Type 2 diabetes mellitus with other diabetic kidney complication; E78.2 Mixed hyperlipidemia; D51.8 Other vitamin B12 deficiency anemias

== ENCOUNTER → 2024-06-28 | Outpatient (CLI) | payer BC, OTHER | LOC: M ADAMS 09:54 | PROVIDERS: ATTEND Family Medicine | DX: J18.9 Pneumonia, unspecified organism (principal) ==

== ENCOUNTER → 2024-11-11 | Outpatient (REF) | payer BC, OTHER ==
[~2024-11-11] MED LIST changes: +GABA-1172 PO; -GABA-282 PO
[2024-11-11 17:33] LABS: HEMATOCRIT 44.1 % (36.0-47.0); HEMOGLOBIN 13.9 g/dl (12.0-15.5); MEAN CORPUSCULAR HEMOGLOBIN 28.5 pg (27.0-33.0); MEAN CORPUSCULAR HGB CONC 31.5 g/dl (32.0-36.5); MEAN CORPUSCULAR VOLUME 90.6 fl (80.0-96.0); PLATELET COUNT, AUTOMATED 232 10^3/uL (150-450); RED BLOOD COUNT 4.87 10^6/uL (4.00-5.40)
[2024-11-11 17:55] LABS: HEMOGLOBIN A1c 5.6 % (4.0-6.0)
[2024-11-11 18:01] LABS: C REACTIVE PROTEIN QUANTITATIV 3.93 MG/DL (<1.0); CHOLESTEROL RISK RATIO 3.24 (<5); HDL CHOLESTEROL 33.9 MG/DL (>40); LDL CHOLESTEROL 57.7 MG/DL (<100); MAGNESIUM LEVEL 2.3 MG/DL (1.8-2.4); NON-HDL-C 76.1 MG/DL
[2024-11-11 18:02] LABS: ALBUMIN 3.9 G/DL (3.2-5.2); BILIRUBIN,TOTAL 0.8 MG/DL (0.3-1.2); CALCIUM LEVEL 9.5 MG/DL (8.5-10.1); CREATININE FOR GFR 1.86 MG/DL (0.55-1.30); GLOMERULAR FILTRATION RATE 30.2 (>51); POTASSIUM SERUM 4.6 MMOL/L (3.5-5.1); TOTAL PROTEIN 7.1 G/DL (5.7-8.2)
== END ==
LOC: M SFHCADAM 11:14
PROVIDERS: ATTEND Family Medicine
DX: G47.62 Sleep related leg cramps (principal); E78.2 Mixed hyperlipidemia; N18.32 Chronic kidney disease, stage 3b; A49.01 Methicillin susceptible Staphylococcus aureus infection, unspecified site; E11.29 Type 2 diabetes mellitus with other diabetic kidney complication; M86.9 Osteomyelitis, unspecified

== ENCOUNTER → 2024-11-23 | Outpatient (REF) | payer BC, OTHER | LOC: M LAB REF 16:18 | PROVIDERS: ATTEND Podiatrist | DX: L03.116 Cellulitis of left lower limb (principal) ==

== ENCOUNTER → 2025-01-17 | Outpatient (REF) | payer BC, OTHER | LOC: M LAB REF 12:16 | PROVIDERS: ATTEND Podiatrist | DX: L03.119 Cellulitis of unspecified part of limb (principal) ==

== ENCOUNTER → 2025-03-01 | Outpatient (REF) | payer BC, OTHER | LOC: M LAB REF 12:22 | PROVIDERS: ATTEND Podiatrist | DX: L03.119 Cellulitis of unspecified part of limb (principal) ==

== ENCOUNTER → 2025-03-09 | Outpatient (CLI) | payer BC, OTHER ==
[2025-03-09 16:11] LABS: BASO # 0.1 10^3/uL (0.0-0.2); BASO % 0.5 % (0.0-1.0); EOS # 0.2 10^3/uL (0.0-0.5); EOS % 1.6 % (0.0-3.0); HEMATOCRIT 36.9 % (36.0-47.0); HEMOGLOBIN 10.8 g/dl (12.0-15.5); LYMPH # 2.4 10^3/uL (1.5-5.0); LYMPH % 24.5 % (24.0-44.0); MEAN CORPUSCULAR HEMOGLOBIN 26.3 pg (27.0-33.0); MEAN CORPUSCULAR HGB CONC 29.3 g/dl (32.0-36.5); MONO # 0.7 10^3/uL (0.0-0.8); MONO % 6.8 % (2.0-8.0); NEUTROPHILS # 6.5 10^3/uL (1.5-8.5); NEUTROPHILS % 66.4 % (36.0-66.0); PLATELET COUNT, AUTOMATED 366 10^3/uL (150-450); WHITE BLOOD COUNT 9.7 10^3/uL (4.0-10.0)
[2025-03-09 16:17] LABS: ERYTHROCYTE SEDIMENTATION RATE 65 mm/hr (0-30)
[2025-03-09 16:30] LABS: ALBUMIN 3.1 G/DL (3.2-5.2); ALKALINE PHOSPHATASE 62 U/L (35-104); ALT/SGPT < 9 U/L (7.0-40); AST/SGOT < 8 U/L (<34); BILIRUBIN,TOTAL 0.4 MG/DL (0.3-1.2); BLOOD UREA NITROGEN 26 MG/DL (9-23); C REACTIVE PROTEIN QUANTITATIV 1.59 MG/DL (<1.0); CALCIUM LEVEL 9.2 MG/DL (8.5-10.1); CARBON DIOXIDE LEVEL 28 MMOL/L (20-31); CHLORIDE LEVEL 104 MMOL/L (98-107); CREATININE FOR GFR 1.93 MG/DL (0.55-1.30); GLOMERULAR FILTRATION RATE 30.4 (>51); GLUCOSE, FASTING 105 MG/DL (60-100); POTASSIUM SERUM 4.9 MMOL/L (3.5-5.1); SODIUM LEVEL 140 MMOL/L (136-145); TOTAL PROTEIN 6.6 G/DL (5.7-8.2)
[2025-03-09 16:33] LABS: HEMOGLOBIN A1c 5.5 % (4.0-6.0)
== END ==
LOC: M PLALAB 13:05
PROVIDERS: ATTEND Internal Medicine Infectious Disease
DX: E11.8 Type 2 diabetes mellitus with unspecified complications (principal); A49.01 Methicillin susceptible Staphylococcus aureus infection, unspecified site

== ENCOUNTER → 2025-05-09 | Outpatient (CLI) | payer BC, MEDICAID ==
[2025-05-09 13:03] LABS: BASO # 0.0 10^3/uL (0.0-0.2); BASO % 0.4 % (0.0-1.0); EOS # 0.1 10^3/uL (0.0-0.5); EOS % 1.5 % (0.0-3.0); LYMPH # 2.4 10^3/uL (1.5-5.0); LYMPH % 25.7 % (24.0-44.0); MONO # 0.6 10^3/uL (0.0-0.8); MONO % 6.5 % (2.0-8.0); NEUTROPHILS # 6.0 10^3/uL (1.5-8.5); NEUTROPHILS % 65.2 % (36.0-66.0); PLATELET COUNT, AUTOMATED 277 10^3/uL (150-450)
[2025-05-09 13:09] LABS: ERYTHROCYTE SEDIMENTATION RATE 39 mm/hr (0-30)
[2025-05-09 13:31] LABS: ALT/SGPT 11.0 U/L (7.0-40); AST/SGOT 14.0 U/L (<34); C REACTIVE PROTEIN QUANTITATIV 1.75 MG/DL (<1.0); CALCIUM LEVEL 8.8 MG/DL (8.5-10.1); CARBON DIOXIDE LEVEL 28.0 MMOL/L (20-31); CHLORIDE LEVEL 108.0 MMOL/L (98-107); CREATININE FOR GFR 1.36 MG/DL (0.55-1.30); GLOMERULAR FILTRATION RATE 46.3 (>51); POTASSIUM SERUM 4.4 MMOL/L (3.5-5.1); SODIUM LEVEL 145.0 MMOL/L (136-145)
[2025-05-09 13:50] LABS: ESTIMATED AVERAGE GLUCOSE 108.0 MG/DL (60-110)
== END ==
LOC: M PLALAB 09:36
PROVIDERS: ATTEND Internal Medicine Infectious Disease
DX: A49.9 Bacterial infection, unspecified (principal); E11.8 Type 2 diabetes mellitus with unspecified complications

== ENCOUNTER → 2025-06-21 | Outpatient (REF) | payer BC, MEDICAID | LOC: M LAB REF 16:39 | PROVIDERS: ATTEND Podiatrist | DX: M86.9 Osteomyelitis, unspecified (principal) ==

== ENCOUNTER → 2025-07-19 | Outpatient (REF) | payer BC, MEDICAID ==
[2025-07-19 18:23] LABS: PLATELET COUNT, AUTOMATED 380 10^3/uL (150-450)
[2025-07-19 18:30] LABS: ERYTHROCYTE SEDIMENTATION RATE 76 mm/hr (0-30)
[2025-07-19 18:47] LABS: ALT/SGPT < 9 U/L (7.0-40); AST/SGOT < 8 U/L (<34); C REACTIVE PROTEIN QUANTITATIV 4.60 MG/DL (<1.0); CALCIUM LEVEL 8.7 MG/DL (8.5-10.1); CARBON DIOXIDE LEVEL 29 MMOL/L (20-31); CHLORIDE LEVEL 100 MMOL/L (98-107); CREATININE FOR GFR 1.53 MG/DL (0.55-1.30); GLOMERULAR FILTRATION RATE 40.2 (>51); POTASSIUM SERUM 3.8 MMOL/L (3.5-5.1); SODIUM LEVEL 133 MMOL/L (136-145)
[2025-07-19 18:58] LABS: ESTIMATED AVERAGE GLUCOSE 123.0 MG/DL (60-110)
== END ==
LOC: M SFHCADAM 14:37
PROVIDERS: ATTEND Physician Assistant
DX: E11.29 Type 2 diabetes mellitus with other diabetic kidney complication (principal); M79.89 Other specified soft tissue disorders; M86.671 Other chronic osteomyelitis, right ankle and foot

== ENCOUNTER → 2025-07-20 | Outpatient (REF) | payer BC | LOC: M LAB REF 17:47 | PROVIDERS: ATTEND Podiatrist | DX: L03.119 Cellulitis of unspecified part of limb (principal) ==

== ENCOUNTER 2025-08-01 18:27 | Inpatient (IN) | payer BC, MEDICAID ==
[~2025-08-01] VITALS: Ht 161.3 cm; Wt 63.8 kg
[2025-08-01 20:05] VITALS: BP 118/73; TEMP 98; O2SAT 100
[2025-08-01] MEDS ORDERED: KETOROLAC 30 MG/ML 1 ML VIAL IV PRN (20:30)
[2025-08-01] MEDS ORDERED: MORPHINE 4 MG/ML 1 ML VIAL IV PRN (20:30)
[2025-08-01] MEDS ORDERED: GLUCOSE 4 GM CHEW PO PRN (20:35)
[2025-08-01] MEDS ORDERED: DEXTROSE 50% 50 ML SYRINGE IV PRN (20:35)
[2025-08-01] MEDS ORDERED: GLUCAGON INJ 1 MG VIAL SC PRN (20:35)
[2025-08-01 21:09] LABS: BASO # 0.0 10^3/uL (0.0-0.2); BASO % 0.4 % (0.0-1.0); EOS # 0.2 10^3/uL (0.0-0.5); EOS % 1.6 % (0.0-3.0); LYMPH # 1.8 10^3/uL (1.5-5.0); LYMPH % 18.6 % (24.0-44.0); MONO # 0.7 10^3/uL (0.0-0.8); MONO % 7.4 % (2.0-8.0); NEUTROPHILS # 7.0 10^3/uL (1.5-8.5); NEUTROPHILS % 71.8 % (36.0-66.0); PLATELET COUNT, AUTOMATED 343 10^3/uL (150-450)
[2025-08-01 21:21] LABS: INR 1.14
[2025-08-01] MEDS: NS (Normal Saline) 0.9% 1,000 ML IV SCH (21:33)
[2025-08-01 21:37] LABS: ALT/SGPT < 9 U/L (7.0-40); AST/SGOT 9 U/L (<34); CALCIUM LEVEL 8.6 MG/DL (8.5-10.1); CARBON DIOXIDE LEVEL 26 MMOL/L (20-31); CHLORIDE LEVEL 102 MMOL/L (98-107); CREATININE FOR GFR 1.64 MG/DL (0.55-1.30); GLOMERULAR FILTRATION RATE 37.0 (>51); POTASSIUM SERUM 4.0 MMOL/L (3.5-5.1); SODIUM LEVEL 140 MMOL/L (136-145)
[2025-08-01] MEDS ORDERED: TIRZ12.5 SC (23:07)
[2025-08-01] MEDS ORDERED: ROPI2TAB46 PO (23:07)
[2025-08-01] MEDS ORDERED: HOME MED LIST COMPLETE! XX SCH (23:10)
[2025-08-02] VITALS (8 sets, daily range): BP systolic 88–117; BP diastolic 49–79; TEMP 97.1–98; O2SAT 98–100
[2025-08-02] MEDS: VANCOMYCIN HCL 1,250 MG, VIAL MATE ADAPTER 1 EACH in NS 250 ML IV ONE (06:00)
[2025-08-02] MEDS: INSULIN LISPRO (NovoLOG) PER UNIT SC SCH (07:30)
[2025-08-02] MEDS: PANTOPRAZOLE 40MG VIAL IV SCH (07:53)
[2025-08-02] MEDS: LINEZOLID 600 MG in IV 1 EA IV SCH (15:05)
[2025-08-02] MEDS ORDERED: MORPHINE 4 MG/ML 1 ML VIAL IV PRN ×2 (15:10)
[2025-08-02] MEDS: MIRALAX *UNIT DOSE* 17 GM PACKET PO SCH (15:29)
[2025-08-02] MEDS: dexAMETHasone 4 MG/ML 1 ML VIAL As Ordered ONE (16:26)
[2025-08-02] MEDS ORDERED: MIDAZOLAM INJ 2 MG/2 ML VIAL As Ordered ONE (16:39)
[2025-08-02] MEDS ORDERED: LIDOCAINE 2% 100 MG/5 ML SDV (FOR ANES.) As Ordered ONE (16:40)
[2025-08-02] MEDS: TOBRAMYCIN 80MG/2ML VIAL As Ordered ONE (17:25)
[2025-08-02] MEDS: TOBRAMYCIN SULF 1.2GM VIAL As Ordered ONE (17:28)
[2025-08-02] MEDS: GENTAMICIN SULF 80 MG/2 ML VIAL As Ordered ONE (17:28)
[2025-08-02] MEDS: LIDOCAINE 2% MDV 20 ML VIAL As Ordered ONE (17:29)
[2025-08-02] MEDS ORDERED: ACETAMINOPHEN 1000MG/100ML IV BAG As Ordered ONE (17:38)
[2025-08-02] MEDS ORDERED: ONDANSETRON 4MG 2ML VIAL IV PRN (18:20)
[2025-08-02] MEDS: LR 1,000 ML IV SCH (18:20)
[2025-08-02] MEDS ORDERED: HYDROMORPHONE HCL 0.5 MG/0.5 ML SYRINGE IV PRN (18:20)
[2025-08-03 04:00] VITALS: BP 107/55; TEMP 97.5; O2SAT 100
[2025-08-03 05:40] LABS: PLATELET COUNT, AUTOMATED 301 10^3/uL (150-450)
[2025-08-03 06:18] LABS: CALCIUM LEVEL 8.0 MG/DL (8.5-10.1); CARBON DIOXIDE LEVEL 26.0 MMOL/L (20-31); CHLORIDE LEVEL 108.0 MMOL/L (98-107); CREATININE FOR GFR 1.58 MG/DL (0.55-1.30); GLOMERULAR FILTRATION RATE 38.7 (>51); POTASSIUM SERUM 4.1 MMOL/L (3.5-5.1); SODIUM LEVEL 143.0 MMOL/L (136-145)
[2025-08-03 08:00] VITALS: BP 107/59; TEMP 97.4; O2SAT 99
[2025-08-03] MEDS ORDERED: VANCOMYCIN HCL 1,000 MG, VIAL MATE ADAPTER 1 EACH in NS 250 ML IV SCH (08:00)
[2025-08-03] MEDS: ACETAMINOPHEN 325 MG TAB PO PRN (09:24)
[2025-08-03] MEDS: PIPERACILLIN/TAZOBACTAM SOD 2.25 GM in DEXTROSE 5% (D5W) ADV/MINI-BAG 50 ML IV SCH (11:32)
[2025-08-03 12:00] VITALS: BP 110/58; TEMP 98.1; O2SAT 99
[2025-08-03] MEDS: CLOPIDOGREL 75 MG TAB PO SCH (14:18)
[2025-08-03] MEDS: ASPIRIN 81 MG CHEWABLE TABLET PO SCH (14:18)
[2025-08-03] MEDS: CALCITRIOL 0.25 MCG CAP (S0169) PO SCH (14:18)
[2025-08-03 16:00] VITALS: BP 100/58; TEMP 97.8; O2SAT 100
[2025-08-03] MEDS: GABAPENTIN 300 MG CAP PO SCH (16:41)
[2025-08-03 19:01] LABS: C REACTIVE PROTEIN QUANTITATIV 1.99 MG/DL (<1.0); IRON (FE) 25.0 UG/DL (50-170); PERCENT SATURATION 12.6 % (13.2-45.0)
[2025-08-03 19:04] LABS: VITAMIN B12 LEVEL 366.0 PG/ML (211-911)
[2025-08-03] MEDS: ATORVASTATIN 20 MG TAB PO SCH (20:52)
[2025-08-03] MEDS: METOPROLOL SUCC. 50 MG *XL* TAB PO SCH (20:54)
[2025-08-03 21:15] VITALS: BP 104/61; TEMP 97.2
[2025-08-04 05:33] VITALS: BP 106/64; TEMP 96.8; O2SAT 96
[2025-08-04 06:56] LABS: PLATELET COUNT, AUTOMATED 301 10^3/uL (150-450)
[2025-08-04 07:20] LABS: CALCIUM LEVEL 8.4 MG/DL (8.5-10.1); CARBON DIOXIDE LEVEL 26.0 MMOL/L (20-31); CHLORIDE LEVEL 112.0 MMOL/L (98-107); CREATININE FOR GFR 1.59 MG/DL (0.55-1.30); GLOMERULAR FILTRATION RATE 38.4 (>51); POTASSIUM SERUM 4.7 MMOL/L (3.5-5.1); SODIUM LEVEL 146.0 MMOL/L (136-145)
[2025-08-04 14:20] VITALS: BP 90/46; TEMP 97.2; O2SAT 97
[2025-08-04 21:37] VITALS: BP 105/58; TEMP 97.3; O2SAT 92
[2025-08-04 21:40] VITALS: BP 105/58
[2025-08-05 06:00] VITALS: BP 103/60; TEMP 97.2; O2SAT 99
[2025-08-05 07:31] LABS: PLATELET COUNT, AUTOMATED 303 10^3/uL (150-450)
[2025-08-05 07:49] LABS: CALCIUM LEVEL 8.2 MG/DL (8.5-10.1); CARBON DIOXIDE LEVEL 27.0 MMOL/L (20-31); CHLORIDE LEVEL 109.0 MMOL/L (98-107); CREATININE FOR GFR 1.65 MG/DL (0.55-1.30); GLOMERULAR FILTRATION RATE 36.7 (>51); POTASSIUM SERUM 4.0 MMOL/L (3.5-5.1); SODIUM LEVEL 145.0 MMOL/L (136-145)
[2025-08-05 14:30] VITALS: BP 102/60; TEMP 97.2; O2SAT 98
[2025-08-05 21:09] VITALS: BP 102/59; TEMP 97.3; O2SAT 99
[2025-08-06 06:15] VITALS: BP 94/69; TEMP 97; O2SAT 98
[2025-08-06 06:51] LABS: PLATELET COUNT, AUTOMATED 311 10^3/uL (150-450)
[2025-08-06 07:18] LABS: CALCIUM LEVEL 8.5 MG/DL (8.5-10.1); CARBON DIOXIDE LEVEL 27.0 MMOL/L (20-31); CHLORIDE LEVEL 110.0 MMOL/L (98-107); CREATININE FOR GFR 1.84 MG/DL (0.55-1.30); GLOMERULAR FILTRATION RATE 32.2 (>51); POTASSIUM SERUM 4.5 MMOL/L (3.5-5.1); SODIUM LEVEL 145.0 MMOL/L (136-145)
[2025-08-06 14:30] VITALS: BP 95/58; TEMP 97.2; O2SAT 98
[2025-08-06 20:33] VITALS: BP 112/65; TEMP 97.2; O2SAT 97
[2025-08-06] MEDS: LINEZOLID 600 MG TABLET PO SCH (20:59)
[2025-08-07 06:28] VITALS: BP 107/89; TEMP 97; O2SAT 98
[2025-08-07 07:16] LABS: PLATELET COUNT, AUTOMATED 308 10^3/uL (150-450)
[2025-08-07 07:42] LABS: CALCIUM LEVEL 8.4 MG/DL (8.5-10.1); CARBON DIOXIDE LEVEL 28.0 MMOL/L (20-31); CHLORIDE LEVEL 110.0 MMOL/L (98-107); CREATININE FOR GFR 1.76 MG/DL (0.55-1.30); GLOMERULAR FILTRATION RATE 34.0 (>51); POTASSIUM SERUM 4.4 MMOL/L (3.5-5.1); SODIUM LEVEL 146.0 MMOL/L (136-145)
[2025-08-07] MEDS ORDERED: LINE1TAB6 PO (07:50)
[2025-08-07 08:51] VITALS: BP 107/89
== END 2025-08-07 12:45 | disposition home health service (06) | DRG 314 ==
LOC: M MS4PR 18:54 → OBSVTOIN 08-02 10:52 → M MS5PR 08-03 17:39
PROVIDERS: ADMIT Student in an Organized Health Care Education/Training Program; ATTEND Student in an Organized Health Care Education/Training Program
PROC: 0QBN0ZZ Excision of Right Metatarsal, Open Approach (ICD-10-PCS; principal; 2025-08-02 16:30)
DX: E11.69 Type 2 diabetes mellitus with other specified complication (principal); E11.22 Type 2 diabetes mellitus with diabetic chronic kidney disease; M86.671 Other chronic osteomyelitis, right ankle and foot; N18.30 Chronic kidney disease, stage 3 unspecified; I12.9 Hypertensive chronic kidney disease with stage 1 through stage 4 chronic kidney disease, or unspecified chronic kidney disease; E78.5 Hyperlipidemia, unspecified; I25.10 Atherosclerotic heart disease of native coronary artery without angina pectoris; D63.8 Anemia in other chronic diseases classified elsewhere; J45.909 Unspecified asthma, uncomplicated; B95.61 Methicillin susceptible Staphylococcus aureus infection as the cause of diseases classified elsewhere; Z79.82 Long term (current) use of aspirin; Z79.02 Long term (current) use of antithrombotics/antiplatelets; Z79.899 Other long term (current) drug therapy; Z88.2 Allergy status to sulfonamides; Z88.8 Allergy status to other drugs, medicaments and biological substances; Z89.411 Acquired absence of right great toe; Z89.421 Acquired absence of other right toe(s); Z95.5 Presence of coronary angioplasty implant and graft

== ENCOUNTER → 2025-08-15 | Outpatient (CLI) | payer BC, MEDICAID ==
[~2025-08-15] MED LIST changes: +LINE1TAB6 PO; +ROPI2TAB46 PO; +TIRZ12.5 SC
[2025-08-15 11:13] LABS: BASO # 0.0 10^3/uL (0.0-0.2); BASO % 0.7 % (0.0-1.0); EOS # 0.1 10^3/uL (0.0-0.5); EOS % 2.1 % (0.0-3.0); LYMPH # 1.3 10^3/uL (1.5-5.0); LYMPH % 30.1 % (24.0-44.0); MONO # 0.3 10^3/uL (0.0-0.8); MONO % 7.4 % (2.0-8.0); NEUTROPHILS # 2.6 10^3/uL (1.5-8.5); NEUTROPHILS % 59.5 % (36.0-66.0); PLATELET COUNT, AUTOMATED 208 10^3/uL (150-450)
[2025-08-15 11:31] LABS: C REACTIVE PROTEIN QUANTITATIV 1.17 MG/DL (<1.0)
[2025-08-15 11:35] LABS: CALCIUM LEVEL 9.6 MG/DL (8.5-10.1); CARBON DIOXIDE LEVEL 28.0 MMOL/L (20-31); CHLORIDE LEVEL 105.0 MMOL/L (98-107); CREATININE FOR GFR 1.72 MG/DL (0.55-1.30); GLOMERULAR FILTRATION RATE 34.9 (>51); POTASSIUM SERUM 4.4 MMOL/L (3.5-5.1); SODIUM LEVEL 143.0 MMOL/L (136-145)
== END ==
LOC: M PLALAB 08:45
PROVIDERS: ATTEND Internal Medicine Infectious Disease
DX: M86.9 Osteomyelitis, unspecified (principal)

== ENCOUNTER 2025-08-25 13:20 | Day surgery (SDC) | payer BC, MEDICAID ==
[~2025-08-25] VITALS: Ht 160 cm; Wt 64.0 kg
[2025-08-25] MEDS: LIDOCAINE 2% MDV 20 ML VIAL As Ordered ONE (10:16)
[2025-08-25] MEDS: dexAMETHasone 4 MG/ML 1 ML VIAL As Ordered ONE (10:16)
[~2025-08-25 13:20] MED LIST changes: +ACETAMINOPHEN 1000MG/100ML IV BAG As Ordered ONE; +KETOROLAC 30 MG/ML 1 ML VIAL As Ordered ONE; +LIDOCAINE 2% 100 MG/5 ML SDV (FOR ANES.) As Ordered ONE; +MIDAZOLAM INJ 2 MG/2 ML VIAL As Ordered ONE; +ONDANSETRON 4MG/2ML VIAL As Ordered ONE; +ROCURONIUM BROMIDE 50MG/5ML VIAL As Ordered ONE; +dexmedeTOMIDine (4 MCG/ML) 200 MCG/50 ML BTL As Ordered ONE
[2025-08-25] MEDS ORDERED: LR 1,000 ML IV SCH (13:50)
[2025-08-25] MEDS ORDERED: SUGAMMADEX SODIUM 200 MG/2 ML VIAL As Ordered ONE (15:39)
[2025-08-25] MEDS: ceFAZolin SODIUM 2 GM in DEXTROSE 5% (D5W) ADV/MINI-BAG 50 ML IV ONE (17:05)
[2025-08-25] MEDS ORDERED: PHENYLephrine 500MCG 5ML (100MCG/ML) SYRINGE As Ordered ONE (17:27)
[2025-08-25] MEDS: GENTAMICIN SULF 80 MG/2 ML VIAL As Ordered ONE (17:49)
[2025-08-25] MEDS ORDERED: ONDANSETRON 4MG/2ML VIAL IV PRN (19:05)
[2025-08-25 19:54] VITALS: BP 129/64; TEMP 97.1; O2SAT 98
== END 2025-08-25 20:15 | disposition home or self-care (01) ==
LOC: M SDC 13:20
PROVIDERS: ATTEND Podiatrist
DX: M67.01 Short Achilles tendon (acquired), right ankle (principal); L97.416 Non-pressure chronic ulcer of right heel and midfoot with bone involvement without evidence of necrosis
CPT/HCPCS: 11044; 27685; 28200; 73630; 76000; C1713; J0131; J0688; J1100; J1580; J1885; J2250; J2371; J2405; J3010

== ENCOUNTER → 2025-09-07 | Outpatient (CLI) | payer BC, MEDICAID ==
[~2025-09-07] MED LIST changes: -ACETAMINOPHEN 1000MG/100ML IV BAG As Ordered ONE; -KETOROLAC 30 MG/ML 1 ML VIAL As Ordered ONE; -LIDOCAINE 2% 100 MG/5 ML SDV (FOR ANES.) As Ordered ONE; -MIDAZOLAM INJ 2 MG/2 ML VIAL As Ordered ONE; -ONDANSETRON 4MG/2ML VIAL As Ordered ONE; -ROCURONIUM BROMIDE 50MG/5ML VIAL As Ordered ONE; -dexmedeTOMIDine (4 MCG/ML) 200 MCG/50 ML BTL As Ordered ONE
[2025-09-07 15:11] LABS: BASO # 0.0 10^3/uL (0.0-0.2); BASO % 0.5 % (0.0-1.0); EOS # 0.1 10^3/uL (0.0-0.5); EOS % 1.9 % (0.0-3.0); LYMPH # 2.2 10^3/uL (1.5-5.0); LYMPH % 35.5 % (24.0-44.0); MONO # 0.5 10^3/uL (0.0-0.8); MONO % 7.3 % (2.0-8.0); NEUTROPHILS # 3.4 10^3/uL (1.5-8.5); NEUTROPHILS % 54.3 % (36.0-66.0); PLATELET COUNT, AUTOMATED 182 10^3/uL (150-450)
[2025-09-07 15:25] LABS: C REACTIVE PROTEIN QUANTITATIV < 0.50 MG/DL (<1.0)
[2025-09-07 15:26] LABS: ALT/SGPT 26 U/L (7.0-40); AST/SGOT 16 U/L (<34); CALCIUM LEVEL 8.4 MG/DL (8.5-10.1); CARBON DIOXIDE LEVEL 28 MMOL/L (20-31); CHLORIDE LEVEL 103 MMOL/L (98-107); CREATININE FOR GFR 1.85 MG/DL (0.55-1.30); GLOMERULAR FILTRATION RATE 32.0 (>51); POTASSIUM SERUM 4.5 MMOL/L (3.5-5.1); SODIUM LEVEL 140 MMOL/L (136-145)
== END ==
LOC: M PLALAB 12:16
PROVIDERS: ATTEND Internal Medicine Infectious Disease
DX: M86.9 Osteomyelitis, unspecified (principal)